=== PATIENT | female | born 1945 | race Caucasian/White ===

== ENCOUNTER 2020-07-26 12:18 | Emergency (ER) | payer MEDICARE, OTHER, SELFPAY ==
[2020-07-26] VITALS (7 sets, daily range): BP systolic 97–129; BP diastolic 30–85; PULSE 88–102; RESP 16–24; TEMP 36.9; O2SAT 95–100
--- NOTE | ~2020-07-26 | XR_ITS ---
EXAMINATION: XR chest 1V portable EXAM DATE: 07/26/2020 14:21 INDICATION: Shortness of breath for a day. TECHNIQUE: Portable AP frontal chest x-ray was obtained. Comparison is made to prior examination from 03/29/2018. FINDINGS: Approximately 1.5 cm right midlung zone nodular density, differential diagnosis including h ealing rib fracture, intraparenchymal nodule from cancer or acute infectious process. Clinical correl ation and follow-up chest x-ray is indicated. The lungs are otherwise clear. There are no pleural effusions. The cardiomediastinal silhouette is p rominent but magnified on this AP technique. There is no pneumothorax suspected. The bones and so ft tissues are unremarkable. IMPRESSION: Indeterminate right midlung zone nodular density, could be acute infectious process or ca ncer. Clinical correlation, follow-up chest x-ray. Reviewed, dictated and finalized at location A. ENT ACCOUNTS CLERK IMPRESSION: Indeterminate right midlung zone nodular density, could be acute in fectious process or cancer. Clinical correlation, follow-up chest x-ray.
--- NOTE | 2020-07-26 12:37 | ECG_ITS ---
Measurements Intervals [place] Rate: 102 P: 31 [place]: 143 QRS: -67 QRSD: 98 T: 42 QT: 334 QTc: 436 Interpretive Statements SINUS TACHYCARDIA LEFT ANTERIOR FASCICULAR BLOCK CANNOT RULE OUT SEPTAL INFARCT, AGE INDETERMINATE BASELINE WANDER- I, II, AVR, AVL, V2 ABNORMAL ECG Electronically Signed On 07-26-2020 14:59:18 RETAIL SALES ASSOCIATE by German Mauricio D.O.
[2020-07-26 12:58] LABS: Basophils Percent Auto 0.2 % (0.2-1.2); Eosinophils Percent Auto 0.9 % (0-4.4); Hematocrit 45.6 % (37.0-47.0); Hemoglobin 14.4 g/dL (12.0-15.0); Immature Granulocyte Absolute 0.01 K/mm3 (0.00-0.031); Immature Granulocyte Percent A 0.2 % (0-0.5); Lymphocytes Percent Auto 25.5 % (18.3-44.2); Mean Corpuscular HGB Conc 31.6 g/dl (32-36); Mean Corpuscular Hemoglobin 28.3 pg (26-34); Mean Corpuscular Volume 89.6 fl (80-100); Monocytes Absolute Auto 0.3 K/mm3 (0.1-0.6); Neutrophils Absolute Auto 3.2 K/mm3 (1.3-6.7); Neutrophils Percent Auto 67.2 % (45.5-73.1); Platelet Count Result 221 k/mm3 (150-375); Red Blood Count 5.09 M/mm3 (4.2-5.4); Red Cell Distribution Width 15.7 % (11.5-14.5); White Blood Count 4.7 K/mm3 (4.5-10.0)
[2020-07-26 13:07] LABS: Anion Gap 8 mmol/L (8-16); Blood Urea Nitrogen 18 mg/dL (7-17); Calcium 9.4 mg/dL (8.4-10.2); Carbon Dioxide 23 mmol/L (22-30); Chloride 107 mmol/L (98-107); Estimated CRCL calculation 40 ml/min; Estimated Glomerular Filt Rate 44; Glucose 129 mg/dL (65-105); Potassium 4.3 mmol/L (3.4-5.0); Sodium 138 mmol/L (137-145)
--- NOTE | 2020-07-26 14:27 | ED.SOB ---
HPI - SOB/Dyspnea General Chief Complaint: Shortness of Breath/Dyspnea Stated Complaint: diff breathing Time Seen by Provider: 07/26/20 13:59 Source: patient Mode of arrival: wheelchair Limitations: no limitations History of Present Illness HPI Narrative: This is a 75 year old female that presents to the ER for cold symptoms x 2 days. Reports cough, congestion, sore throat. Also reports nausea and diarrhea. Reports fever initially which has resolved. Reports fatigue and shortness of breath with exertion. Denies chest pain or lower extremity edema. Related Data Home Medications Medication Instructions Recorded Confirmed misoprostol 100 mcg tablet 100 mcg PO QID 08/27/19 pantoprazole 20 mg tablet,delayed 20 mg PO QAM 08/27/19 release sucralfate 100 mg/mL oral 2 gm RECTAL BID 08/27/19 suspension vitamin B complex 1 tablet PO DAILY 08/27/19 Allergies Allergy/AdvReac Type Severity Reaction Status Date / Time codeine Allergy Unknown Passout Verified 07/26/20 14:11 Penicillins Allergy Unknown Itching Verified 08/27/19 16:33 Review of Systems Review of Systems: Narrative: CONSTITUTIONAL: Reports fever ENT: Reports rhinorrhea, congestion, sore throat CARDIOVASCULAR: Denies chest pain, or edema. RESPIRATORY: Reports cough and dyspnea. GASTROINTESTINAL:Reports nausea, diarrhea. Denies abdominal pain All systems reviewed & are unremarkable except as noted in HPI and below PMFSH Past Medical History Medical History (Updated 07/26/20 @ 19:05 by Radha Jung PA-C) Stomach ulcer Surgical History Surgical History (Updated 08/27/19 @ 16:33 by Glory Page CMA) History of back surgery History of gastric bypass History of left hip replacement Total knee replacement status Bilateral Family History Family History (Updated 05/01/19 @ 11:07 by DOCTOR UNKNOWN) Father Acute myocardial infarction Mother Hypertension Other Family history of allergic disorder Family history of cardiovascular disease Social History Social History (Updated 08/27/19 @ 16:33 by Glory Page CMA) Smoking status: Never smoker Alcohol intake: current Substance use: never Exam Narrative: Exam Narrative: GENERAL: Elderly, well-nourished, and in no acute distress. HEAD: Normocephalic, atraumatic. EYES: PERRLA and EOMI. ENT: Nares clear, no rhinorrhea or epistaxis. Mucous membranes moist. Oropharynx without tonsillar hypertrophy exudate or other lesions. Bilateral TMs pearly acosta non-bulging NECK: Supple. No adenopathy or masses. CHEST: Clear to auscultation. No respiratory distress. No wheezes rales or rhonchi HEART: Regular rate and rhythm. No murmur heard. Normal peripheral pulses. ABDOMEN: Soft, nontender, nondistended, normal active bowel sounds. EXTREMITIES: Normal range of motion. No edema. SKIN: Warm, dry, no rash. NEURO: No focal deficits. Alert and oriented x3. PSYCH: Normal mood and affect Course Vital Signs Vital signs: Vital Signs Temperature 98.5 F 07/26/20 12:42 Pulse Rate 102 H 07/26/20 12:42 Respiratory Rate 20 07/26/20 12:42 Blood Pressure 98/30 L 07/26/20 12:42 Pulse Oximetry 98 07/26/20 12:42 Temperature 98.5 F 07/26/20 12:42 Pulse Rate 97 07/26/20 18:54 Respiratory Rate 24 H 07/26/20 18:54 Blood Pressure 129/71 07/26/20 18:54 Pulse Oximetry 99 07/26/20 18:54 MDM - SOB/Dyspnea MDM Narrative Medical decision making narrative: Patient presents the emergency department for cold symptoms x2 days. She is afebrile and nontoxic-appearing. Blood pressure was soft on arrival, in the 90s/60s. This responded to IV fluids. Most recent blood pressure 129/71. Patient's oxygen saturation has remained normal on room air. CBC is without concerning findings. Metabolic panel with possible mild dehydration. I do not have any recent labs to compare this to. Lactic acid initially elevated, which normalized with IV fluid administration. BNP is not
[2020-07-26] MEDS: SODIUM CHLORIDE 0.9% IV 1,000 ML 999 ML IV CONT (14:48)
[2020-07-26 15:05] LABS: Lactic Acid Reflex 2.3 mmol/L (0.7-2.1)
[2020-07-26 15:07] LABS: Alanine Aminotransferase 22 U/L (4-35); Albumin Level 3.4 g/dL (3.5-5.1); Alkaline Phosphatase 101 U/L (38-126); Aspartate Amino Transferase 45 U/L (14-36); Bilirubin,Total 0.5 mg/dL (0.2-1.3); CRP 1.1 mg/dL (<1.0); Lactate Dehydrogenase 482 U/L (313-618); Lipase 38 U/L (23-300)
[2020-07-26 15:13] LABS: NT Pro B Type Natriuretic Pept 232 PG/ML (5-100)
[2020-07-26 17:42] LABS: Lactic Acid Reflex 1.7 mmol/L (0.7-2.1)
[2020-07-26 17:49] LABS: Reflex Lactic Acid Yes or No Add Lactic
[2020-07-27 19:47] LABS: SARS-CoV-2 RNA PCR Positive
== END 2020-07-26 19:30 | disposition home or self-care (01) ==
PROVIDERS: Physician Assistant; Emergency Provider Emergency Medicine; PCP Nurse Practitioner Adult Health
DX: U07.1 COVID-19 (principal); Z98.84 Bariatric surgery status; Z96.642 Presence of left artificial hip joint; Z96.653 Presence of artificial knee joint, bilateral; R91.1 Solitary pulmonary nodule; R00.0 Tachycardia, unspecified; I44.4 Left anterior fascicular block; R94.31 Abnormal electrocardiogram [ECG] [EKG]
CPT/HCPCS: 36415; 71045; 80048; 80076; 82728; 83605; 83615; 83690; 83880; 85025; 86140; 87635; 87804; 93005; 96360; 99284; C9803; J7030; U0003

== ENCOUNTER 2020-08-02 13:06 | Outpatient (CLI) | payer MEDICARE, OTHER, SELFPAY ==
--- NOTE | ~2020-08-02 | XR_ITS ---
XR chest 2V 08/02/2020 13:32 Indication: Cough Procedure: 2 view chest Comparison: Comparison to multiple prior studies sequentially, with oldest reviewed study dated 07/12 Findings: There are developing patchy bilateral infiltrates, suspicious for pneumonia. No pleural eff usion, edema or pneumothorax. No acute osseous abnormality. There is thoracic spondylosis with accent uated kyphosis. Impression: 1: Developing patchy bilateral infiltrates, consistent with pneumonia. Reviewed, dictated and finalized at location A. ROUND LOGGER Impression: 1: Developing patchy bilateral infiltrates, consistent with pneumonia.
== END 2020-08-02 13:07 | disposition home or self-care (01) ==
PROVIDERS: PCP Nurse Practitioner Adult Health; Visit Provider Nurse Practitioner Adult Health
DX: U07.1 COVID-19 (principal); R05 Cough; R91.8 Other nonspecific abnormal finding of lung field
CPT/HCPCS: 71046

== ENCOUNTER 2020-08-16 14:43 | Outpatient (CLI) | payer MEDICARE, OTHER, SELFPAY ==
--- NOTE | ~2020-08-16 | XR_ITS ---
XR chest 2V DATE: 08/16/2020 14:59 INDICATION: Shortness of breath, chest pain. Covid 19 positive. TECHNIQUE: 2 views COMPARISON: 08/02/2020 2 view chest FINDINGS: There is cardiomegaly. There is aortic calcification and tortuosity. No hilar or mediastina l enlargement. No pulmonary infiltrate or consolidation, pleural effusion or pulmonary vascular congestion or pneumo thorax. Diffuse osteopenia. IMPRESSION: Cardiomegaly Aortic calcification and tortuosity No active pulmonary disease Diffuse osteopenia Reviewed, dictated and finalized at location A. ANCE ARTIFICER
== END 2020-08-16 14:44 | disposition home or self-care (01) ==
LOC: ANHIMG 14:48
PROVIDERS: PCP Nurse Practitioner Adult Health; Visit Provider Nurse Practitioner Adult Health
DX: U07.1 COVID-19 (principal); I51.7 Cardiomegaly; I70.0 Atherosclerosis of aorta; M85.89 Other specified disorders of bone density and structure, multiple sites
CPT/HCPCS: 71046

== ENCOUNTER 2020-08-31 12:44 | Outpatient (CLI) | payer MEDICARE, OTHER, SELFPAY ==
--- NOTE | 2020-08-31 | ECHO_ITS ---
Patient Info Name: Shania De La Cruz Age: 75 years : 1945 Gender: Female Ht: 62 in Wt: 190 lbs BSA: 1.98 m2 HR: 67 bpm BP: 121 / 90 mmHg Heart Rhythm: Sinus Rhythm Technical Quality: Excellent Exam Date: 08/31/2020 1:12 PM Exam Location: [facility] Pulmonary Patient Status: Outpatient Admit Date: 08/31/2020 Staff Ordering Physician: Jatinder, Luz SHERIDAN Audience Coordinator: Nettie Ortiz RDCS Attending Provider: bOedLuz NP Exam Type: CA echo doppler color flow Study Info Indications I51.7 - Cardiomegaly Complete two-dimensional, color flow and Doppler transthoracic echocardiogram is performed. Summary 1. Left ventricular systolic function is normal, estimated at 65-70%. 2. The left ventricular diastolic function is grade I diastolic dysfunction. 3. Thin and hypermobile interatrial septum. 4. There is no aortic valve stenosis. 5. There is mild tricuspid valve regurgitation. Left Ventricle Left ventricular chamber dimension is normal. Left ventricular systolic function is normal, estimated at 65-70%. There is no increased left ventricular wall thickness. The left ventricular diastolic function is grade I diastolic dysfunction. Global longitudinal strain is normal at -18 %. Right Ventricle Right ventricular chamber dimension is normal. Right ventricular systolic function is normal. Left Atria Left atrial chamber dimension is normal. Right Atria Right atrial chamber dimension is normal. Atrial Septum Thin and hypermobile interatrial septum. Aortic Valve The aortic valve is trileaflet. There is no aortic valve stenosis. There is trace aortic valve regurgitation. Pulmonic Valve The pulmonic valve is normal. There is trace pulmonic regurgitation. Mitral Valve The mitral valve has thickened leaflets. There is trace mitral valve regurgitation. Mild mitral annular calcification. Tricuspid Valve The tricuspid valve leaflets are normal. There is mild tricuspid valve regurgitation. No pulmonary hypertension, estimated pulmonary arterial systolic pressure is 23 mmHg. Pericardium/Pleural The pericardium appears normal. There is small pericardial effusion. Inferior Vena Cava Normal inferior vena cava with >50% collapse upon inspiration consistent with normal right atrial pressure, 5 mmHg. Aorta The aortic root size at the sinus of Valsalva is normal. Left Ventricular Outflow Tract Name Value Normal LVOT 2D LVOT Diameter 2.0 cm LVOT Doppler LVOT Peak Gradient 4 mmHg LVOT Mean Gradient 2 mmHg LVOT VTI 19 cm LVOT VTI/AV VTI Ratio 1.0 LVOT Stroke Volume 61 ml LVOT CO 4.0 l/min LVOT CI 2.0 l/min/m2 Pulmonic Valve Name Value Normal RVOT Doppler
== END 2020-08-31 12:45 | disposition home or self-care (01) ==
PROVIDERS: PCP Nurse Practitioner Adult Health; Visit Provider Nurse Practitioner Adult Health
DX: I51.7 Cardiomegaly (principal)
CPT/HCPCS: 93306

== ENCOUNTER → 2020-11-23 00:29 | Outpatient (CLI) | payer MEDICARE, OTHER, SELFPAY ==
[2020-11-23 18:32] LABS: SARS-CoV-2 RNA PCR Negative
== END ==
PROVIDERS: PCP Nurse Practitioner Adult Health; Visit Provider Podiatrist Foot & Ankle Surgery
DX: Z01.812 Encounter for preprocedural laboratory examination (principal); Z20.822 Contact with and (suspected) exposure to COVID-19
CPT/HCPCS: C9803; U0003; U0005

== ENCOUNTER 2020-11-26 01:29 | Day surgery (SDC) | payer MEDICARE, OTHER, SELFPAY ==
[2020-11-18 13:52] VITALS: BMI 34.7
--- NOTE | 2020-11-25 09:53 | WPDANESEPPF ---
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 Patient Data Age: 75 Gender: F Height: 1.57 m Weight: 86 kg Allergies Allergy/AdvReac Type Severity Reaction Status Date / Time codeine Allergy Unknown Passout Verified 11/26/20 07:30 Penicillins Allergy Unknown Itching Verified 11/26/20 07:30 Home Medications Medication Instructions Recorded Confirmed Type misoprostol 100 mcg tablet 100 mcg PO QAM 08/27/19 11/26/20 History pantoprazole 20 mg tablet,delayed 20 mg PO QAM 08/27/19 11/26/20 History release ergocalciferol (vitamin D2) 50,000 unit PO WEEKLY 11/18/20 11/26/20 History lisinopril 20 mg PO QAM 11/18/20 11/26/20 History vitamin I92-[id number] B1 1 ml IM MONTHLY 11/18/20 11/26/20 History Patient hx anesthesia problems: post op nausea/vomiting Family hx anesthesia problems: none PMFSH Past Medical History Medical History (Updated 11/25/20 @ 09:53 by Adam Peck DO) Anxiety Hypertension PONV (postoperative nausea and vomiting) Stomach ulcer Surgical History Surgical History (Updated 11/25/20 @ 09:53 by Adam Peck DO) History of appendectomy History of back surgery History of cholecystectomy History of gastric bypass History of hysterectomy History of left hip replacement Total knee replacement status Bilateral Family History Family History (Updated 05/01/19 @ 11:07 by DOCTOR UNKNOWN) Father Acute myocardial infarction Mother Hypertension Other Family history of allergic disorder Family history of cardiovascular disease Social History Social History (Updated 08/27/19 @ 16:33 by Glory Page CMA) Smoking status: Never smoker Alcohol intake: current Drinks per week: 2 Substance use: never Living arrangements: with family Additional living arrangements comments: Spiritual care concerns: No Anes - Eval Final PreProcedure Day of Procedure 11/25/20 09:53 Patient weight: obese Heart: regular rate and rhythm Lungs: clear to auscultation and normal air movement Airway: Mallampati scale class II Neurological: alert and oriented Last oral intake: >/= 8 hours ASA classification: III Emergent: no Anesthetic plan: proceed Anesthesia type and monitoring: general LMA and standard monitoring Informed Consent: The patient's anesthetic plan and its attendant risks and benefits were discussed with the patient/family/POA. Questions were solicited and answers provided to the satisfaction of the patient/family/POA.
--- NOTE | 2020-11-25 09:54 | WPDANESPNB ---
Anes - Peripheral Nerve Block Date/Time: 11/25/20 09:54 I have discussed with the patient/family/POA the placement of a peripheral nerve block for post-operative pain management, including associated risks, benefits, complications, and side effects. Alternative methods of post-operative analgesia were detailed. Questions were solicited and answers provided to the satisfaction of the patient/family/POA. Time-Out: A pre-procedural Time-Out was completed immediately before starting the procedure and confirmed: Patient Identification, Site, Procedure, Patient Position and the Availability of Requisite Equipment. Clinical Indications: Acute post-operative pain management requested by the operative surgeon. Nerve Block Insertion Note Anes-nerve block: posterior fossa sciatic left and adductor canal left Patient position: supine (for adductor canal) and other (right lateral for popliteal) Skin prep: chlorhexidine Needle: 22 gauge, stimulating, insulated echogenic needle. Needle length: 80 mm Technique: nerve stimulation lost at (mA) (for popliteal lost at 0.2) and ultrasound Injectate: bupivacaine 0.5% with epi 5 mcg/ml (20 mL for popliteal, 10 mL for adductor canal (no epi)) Observations: tolerated well Complications: none
[2020-11-26] VITALS (9 sets, daily range): BP systolic 132–150; BP diastolic 57–87; PULSE 78–86; RESP 16–20; TEMP 36.4–37; O2SAT 96–100
--- NOTE | ~2020-11-26 | XR_ITS ---
EXAMINATION: XR surgery orthopedic EXAM DATE: 11/26/2020 10:07 INDICATION: Left foot surgery. TECHNIQUE: Fluoroscopy used during XR surgery orthopedic performed by Dr. Cody Canales JR MD. Radiologist was not present for the imaging or procedure. The DAP for this procedure was 0.31 cGycm2 . FINDINGS: Frontal and lateral images of the left great toe demonstrates arthrodesis of the metatarso phalangeal joint joint. Correlate with procedure note. IMPRESSION: Fluoroscopy used during left foot surgery. Reviewed, dictated and finalized at location A.
--- NOTE | 2020-11-26 07:23 | WPDHPUPDATE1 ---
History and Physical Update Update Date/Time: 11/26/20 07:23 History and Physical has been reviewed, including an updated exam of the patient. There are NO changes in the patient's condition. Risks, benefits, and alternatives have been discussed and questions answered. Patient agrees to proceed with procedure.
[2020-11-26] MEDS: LACTATED RINGERS 1,000 ML 30 ML IV CONT (07:55)
[2020-11-26] MEDS: FAMOTIDINE 20 MG/2 ML VIAL IV PUSH (08:15)
[2020-11-26] MEDS: CLINDAMYCIN 900 MG/D5W 50 ML 900 MG/50 ML PIGGYBACK 50 MG IVPB (09:11)
--- NOTE | 2020-11-26 10:26 | PM.PROC ---
Procedure Note - Detailed Date of procedure: 11/26/20 Pre-op diagnosis: Arthritic Bunion Left Foot Post-op diagnosis: same Procedure performed: Athrodesis of the first metatarsal phalangeal joint left foot Implants: [employer] Cross check plate with four 2.7mm locking screws and one 3.5 mm lag screw Anesthesia: GLMA and local Surgeon: Cody Canales JR, DPM Estimated blood loss (mL): 1 Drains: No Packing: No Pathology: none sent Complications: No immediate complications Condition: stable Disposition: same day Findings: PROCEDURE IN DETAIL: Under mild sedation, the patient was brought into the operating room, placed on the operating table in supine position. A pneumatic ankle tourniquet was placed about the patient's ankle. Following general LMA, a local anesthetic block was obtained about the foot and ankle utilizing 20 cc of Exparel. The foot was then scrubbed, prepped, and draped in the usual aseptic manner. An Esmarch bandage was then used to exsanguinate the patient's foot and the pneumatic ankle tourniquet was then inflated. Surgery began in the following manner: Attention was directed to the dorsal aspect of the 1st metatarsophalangeal joint where there was a large osteophyte noted along the dorsomedial aspect of the joint, she had a recurrent bunion deformity noted. The incision was made starting along the central shaft of the 1st metatarsal and extending just proximal to the interphalangeal joint of the left hallux. The incision was continued deep down through the subcutaneous tissues using sharp and blunt dissection. All bleeders were cauterized as necessary. At this point, the dissection was continued down to the level of the periosteum and capsular structures overlying the 1st metatarsophalangeal joint. A full length periosteum and capsular incision was made just medial to the extensor hallucis longus tendon. The periosteum and capsular structures were freed from the base of the proximal phalanx as well as the distal 1st metatarsal. At this point, the 1st metatarsophalangeal joint was identified. There was near complete loss of articular cartilage to the head of the 1st metatarsal as well as the base of the proximal phalanx. There was significant broadening and hypertrophy of the 1st metatarsophalangeal joint. Utilizing a sagittal bone saw, the hypertrophied 1st metatarsal was resected dorsally, medially, and laterally. A power bur was used to make sure that there were no rough edges and also to further debride the hypertrophic 1st metatarsal. Next, a rongeur was used to resect all hypertrophic base of the proximal phalanx. At this point, the reamer system for the CraftistasCHECK system was used to denude the degenerative cartilage from the head of the 1st metatarsal as well as the base of the proximal phalanx. The cartilage and subchondral bone were fully debrided utilizing the reamer system until healthy bleeding bone was noted. Next, a 2-0 drill bit was used to further fenestrate the head of the 1st metatarsal as well as the base of the proximal phalanx in order to allow fusion across the 1st metatarsophalangeal joint. Next, a 0.045 inch K-wire was driven from the medial aspect of the base of the proximal phalanx into the head of the 1st metatarsal in order to serve as temporary fixation. A large steel plate was used to make sure that the hallux was in a rectus position both in the sagittal plane as well as the frontal and transverse plane. Excellent position of the hallux was noted. Next, a CrossCHECK plate was placed atop the 1st metatarsophalangeal joint held in position with Flora wires. Utilizing standard principles and techniques, the 2 distal drill holes were drilled and two 2.7 mm fully-threaded locking screws were driven from dorsal to plantar holding the distal aspect of the plate intact. At this point, a lag screw was driven from dorsal distal to proximal plantar across the 1st metatarsophalange
== END 2020-11-26 12:25 | disposition home or self-care (01) ==
PROVIDERS: PCP Nurse Practitioner Adult Health; Visit Provider Podiatrist Foot & Ankle Surgery
PROC: (CPT 28750; principal; 2020-11-26 09:00)
DX: M21.612 Bunion of left foot (principal); F41.9 Anxiety disorder, unspecified; I10 Essential (primary) hypertension; E66.9 Obesity, unspecified; Z68.37 Body mass index [BMI] 37.0-37.9, adult
CPT/HCPCS: 28750; C1713; C9290; J1100; J1200; J2405; J2704; J3010; J7120

== ENCOUNTER → 2021-07-14 12:40 | Outpatient (CLI) | payer MEDICARE, OTHER, SELFPAY ==
--- NOTE | ~2021-07-14 | MM_ITS ---
EXAMINATION: MM screening saundra BI w cintia HISTORY: Screening TECHNIQUE: Craniocaudal and mediolateral oblique 3-D tomosynthesis images were obtained and synthetic 2-D images were generated. CAD analysis was submitted and interpreted. COMPARISON: 01/08/2012 BREAST PARENCHYMAL COMPOSITION: There are scattered areas of fibroglandular density. FINDINGS: There is no evidence of suspicious mass, calcification, or architectural distortion to sugg est malignancy in either breast. There has been no suspicious interval change. IMPRESSION: 1. No mammographic evidence of malignancy. 2. Recommend routine screening mammography in one year. BI-RADS Category 1: Negative Reviewed, dictated and finalized at location A.
== END ==
PROVIDERS: PCP Nurse Practitioner Adult Health; Visit Provider Nurse Practitioner Adult Health
DX: Z12.31 Encounter for screening mammogram for malignant neoplasm of breast (principal)
CPT/HCPCS: 77063; 77067

== ENCOUNTER 2021-10-07 07:55 | Outpatient (CLI) | payer MEDICARE, OTHER, SELFPAY ==
--- NOTE | 2021-10-07 09:01 | ECG_ITS ---
Measurements Intervals [place] Rate: 67 P: 40 NE: 157 QRS: -55 QRSD: 114 T: 18 QT: 377 QTc: 400 Interpretive Statements SINUS RHYTHM LEFT ATRIAL ENLARGEMENT LEFT ANTERIOR FASCICULAR BLOCK BASELINE ARTIFACT- I, II, III, AVR, AVL, AVF ABNORMAL ECG Electronically Signed On 10-07-2021 9:32:32 COMMUNICATIONS MAINTAINER by German Mauricio D.O.
[2021-10-07 09:35] LABS: Basophils Percent Auto 0.5 % (0.2-1.2); Eosinophils Absolute Auto 0.1 K/mm3 (0-0.3); Eosinophils Percent Auto 1.3 % (0-4.4); Hematocrit 40.1 % (37.0-47.0); Hemoglobin 12.5 g/dL (12.0-15.0); Immature Granulocyte Absolute 0.02 K/mm3 (0.00-0.031); Immature Granulocyte Percent A 0.3 % (0-0.5); Lymphocytes Absolute Auto 1.29 K/mm3 (0.9-3.2); Lymphocytes Percent Auto 21.5 % (18.3-44.2); Mean Corpuscular HGB Conc 31.2 g/dl (32-36); Mean Corpuscular Hemoglobin 27.9 pg (26-34); Mean Corpuscular Volume 89.5 fl (80-100); Mean Platelet Volume 9.5 fl (7.4-10.4); Monocytes Absolute Auto 0.4 K/mm3 (0.1-0.6); Monocytes Percent Auto 7.2 % (2.6-8.5); Neutrophils Absolute Auto 4.2 K/mm3 (1.3-6.7); Neutrophils Percent Auto 69.2 % (45.5-73.1); Platelet Count Result 261 k/mm3 (150-375); Red Blood Count 4.48 M/mm3 (4.2-5.4); Red Cell Distribution Width 15.9 % (11.5-14.5)
[2021-10-07 09:43] LABS: Urine Cotinine NEGATIVE
[2021-10-07 09:50] LABS: Albumin Level 4.2 g/dL (3.5-5.1); Estimated Glomerular Filt Rate 44; Glucose 104 mg/dL (65-110)
[2021-10-07 10:35] LABS: Hemoglobin A1C 5.8 % (<5.7)
== END 2021-10-07 07:56 | disposition home or self-care (01) ==
LOC: ANHSURGERY 08:00
PROVIDERS: PCP Nurse Practitioner Adult Health; Visit Provider Orthopaedic Surgery
DX: Z01.818 Encounter for other preprocedural examination (principal); M16.11 Unilateral primary osteoarthritis, right hip; R94.31 Abnormal electrocardiogram [ECG] [EKG]
CPT/HCPCS: 80307; 82040; 82565; 82947; 83036; 85025; 86850; 86900; 86901; 87081; 93005

== ENCOUNTER 2022-02-10 09:31 | Outpatient (CLI) | payer MEDICARE, OTHER, SELFPAY ==
--- NOTE | ~2022-02-10 | DEXA_ITS ---
Bone Density Report Name: ZINA CHO Age: 76 Sex: Female Ethnicity: White Date of : 1945 Indication: postmenopausal; screening for osteoporosis; height loss; hysterectomy; Referring Provider: RALPH, ALMA Study: Bone densitometry was performed. Exam Date: February 10, 2022 Accession number: [id number] Bone Density: Region BMD T-score Z-score Classification AP Spine(L1-L4) 0.944 -0.9 1.4 Normal World Health Organization criteria for BMD impression classify patients as: Normal (T-score at or above -1.0), Osteopenia (T-score between -1.0 and -2.5), or Osteoporosis (T-score at or below -2.5). Clinical Information Provided by Patient: Is being treated for osteoporosis Has used the following medications: Vitamin D, Calcium Has the following medical conditions: Hysterectomy Patient maximum height was 64 Menopause Age: 52 No regular weight bearing exercise Drinks caffeinated beverages Onset of menses at age 14 Number of children 3 Impression: The patient has normal bone mass. Discussion: It is important to ask patients whether they are taking their medications and to encourage continued and appropriate compliance with their osteoporosis therapies to reduce fracture risk. It is also important to review their risk factors and encourage appropriate calcium and vitamin D intakes, exercise, fall prevention and other lifestyle measures. Follow-Up: Consider a repeat BMD and Vertebral Fracture Assessment (VFA) exam in 2 years or sooner if medically necessary, to reassess this patient's status. Reported by: AMANDA on 02/10/2022 10:13:00 AM. Reviewed, dictated and finalized at location Sultana CHING
== END 2022-02-10 09:32 | disposition home or self-care (01) ==
PROVIDERS: PCP Nurse Practitioner Adult Health; Visit Provider Nurse Practitioner
DX: Z78.0 Asymptomatic menopausal state (principal); M81.0 Age-related osteoporosis without current pathological fracture
CPT/HCPCS: 77080

== ENCOUNTER 2023-02-06 14:41 | Emergency (ER) | payer MEDICARE, OTHER, SELFPAY ==
[2023-02-06] VITALS (17 sets, daily range): BP systolic 145–179; BP diastolic 87–96; PULSE 71–84; RESP 12–26; TEMP 36.7; O2SAT 94–100
--- NOTE | ~2023-02-06 | XR_ITS ---
EXAMINATION: XR chest 2V DATE: 02/06/2023 15:53 INDICATION: Weakness and fatigue TECHNIQUE: PA and lateral views of the chest were obtained. COMPARISON: Chest radiograph dated 08/16/2020 FINDINGS: The lungs remain clear with no focal airspace opacities, pulmonary edema, pleural effusion or pneumot horax. Mild cardiomegaly and tortuous thoracic aorta. Thoracic kyphosis with mild spondylosis. IMPRESSION: 1. No acute cardiopulmonary disease. 2. Cardiomegaly. Reviewed, dictated and finalized at location A.
--- NOTE | 2023-02-06 14:42 | ECG_ITS ---
Measurements Intervals [place] Rate: 84 P: 24 MS: 120 QRS: -69 QRSD: 108 T: 52 QT: 346 QTc: 409 Interpretive Statements SINUS RHYTHM LEFT ANTERIOR FASCICULAR BLOCK VOLTAGE CRITERIA FOR LVH CANNOT RULE OUT SEPTAL INFARCT, AGE INDETERMINATE ABNORMAL ECG COMPARED TO ECG 10/07/2021 09:24:10 MYOCARDIAL INFARCT FINDING NOW PRESENT Electronically Signed On 02-06-2023 15:42:05 CDT by German Mauricio D.O.
[2023-02-06 16:23] LABS: Basophils Percent Auto 0.4 % (0.2-1.2); Eosinophils Absolute Auto 0.1 K/mm3 (0-0.3); Eosinophils Percent Auto 0.8 % (0-4.4); Hematocrit 36.2 % (37.0-47.0); Hemoglobin 10.9 g/dL (12.0-15.0); Immature Granulocyte Absolute 0.03 K/mm3 (0.00-0.031); Immature Granulocyte Percent A 0.4 % (0-0.5); Lymphocytes Absolute Auto 1.69 K/mm3 (0.9-3.2); Lymphocytes Percent Auto 21.8 % (18.3-44.2); Mean Corpuscular HGB Conc 30.1 g/dl (32-36); Mean Corpuscular Hemoglobin 25.5 pg (26-34); Mean Corpuscular Volume 84.8 fl (80-100); Mean Platelet Volume 8.9 fl (7.4-10.4); Monocytes Absolute Auto 0.7 K/mm3 (0.1-0.6); Monocytes Percent Auto 8.5 % (2.6-8.5); Neutrophils Absolute Auto 5.3 K/mm3 (1.3-6.7); Neutrophils Percent Auto 68.1 % (45.5-73.1); Platelet Count Result 348 k/mm3 (150-375); Red Blood Count 4.27 M/mm3 (4.2-5.4); Red Cell Distribution Width 18.1 % (11.5-14.5); White Blood Count 7.7 K/mm3 (4.5-10.0)
[2023-02-06 16:27] LABS: Alanine Aminotransferase 18 U/L (6-35); Albumin Level 4.3 g/dL (3.5-5.1); Alkaline Phosphatase 134 U/L (38-126); Anion Gap 7 mmol/L (8-16); Aspartate Amino Transferase 29 U/L (14-36); Bilirubin,Total 0.4 mg/dL (0.2-1.3); Blood Urea Nitrogen 22 mg/dL (7-17); Calcium 9.8 mg/dL (8.4-10.2); Carbon Dioxide 28 mmol/L (22-30); Chloride 105 mmol/L (98-107); Estimated CRCL calculation 36 ml/min; Estimated Glomerular Filt Rate 37; Glucose 74 mg/dL (65-110); Lipase 71 U/L (23-300); Potassium 4.2 mmol/L (3.4-5.0); Sodium 140 mmol/L (137-145)
[2023-02-06 19:16] LABS: Appearance Urine Clear (Clear); Bacteria Urine 1+ /hpf; Bilirubin Urine Negative (Negative); Blood Urine Negative (Negative); Calcium Oxalate Crystals Urine Present /hpf; Color Urine Yellow (Yellow); Glucose Urine UA 3+ mg/dL (Negative); Ketones Urine Negative (Negative); Leukocyte Esterase Ur Negative LEU/UL (Negative); Need Manual Microscopic Reviewed; Nitrate Urine Negative (Negative); Protein Urine Trace mg/dL (Negative); Specific Grav Ur 1.023 (1.001-1.035); Squamous Epithelial Cell Urine Occasional /hpf (Few); WBC Urine 0-5 /hpf
[2023-02-06 19:18] LABS: Add Urine Microscopic? YES
[2023-02-06] MEDS: SODIUM CHLORIDE 0.9% IV 1,000 ML 999 ML IV CONT (20:12)
--- NOTE | 2023-02-06 21:50 | ED.GENADULT ---
HPI - General Adult General Chief complaint: Weakness Stated complaint: DIZZY, WEAKNESS Time Seen by Provider: 02/06/23 19:03 History of Present Illness HPI narrative: Patient is a 77-year-old female who presents ER with generalized fatigue and weakness. Began today. Associated with emesis and diarrhea x4. No blood in stool or emesis. Denies fevers or chills or sweats. No known sick contacts. Reports this is happened to her a couple times over the last month. She is not on any antibiotics. No additional concerns. Denies urinary symptoms. Related Data Home Medications Medication Instructions Recorded Confirmed misoprostol 100 mcg tablet 200 mcg PO QAM 08/27/19 10/07/21 pantoprazole 20 mg tablet,delayed 40 mg PO QAM 08/27/19 10/07/21 release ergocalciferol (vitamin D2) 1,250 50,000 unit PO WEEKLY 11/18/20 10/07/21 mcg (50,000 unit) capsule lisinopril 20 mg tablet 20 mg PO QAM 11/18/20 10/07/21 vitamin [id number] 100 mg-1 1 ml IM MONTHLY 11/18/20 10/07/21 mg/mL intramuscular solution acetaminophen 500 mg capsule 1,000 mg PO Q6H PRN Pain 10/07/21 10/07/21 multivitamin with minerals 1 tablet PO DAILY 10/07/21 10/07/21 (Hair,Skin and Nails tablet) Allergies Allergy/AdvReac Type Severity Reaction Status Date / Time codeine Allergy Unknown Passout Verified 02/06/23 18:57 Penicillins Allergy Unknown Itching Verified 02/06/23 18:57 NSAIDS (Non-Steroidal AdvReac HX GASTRIC Verified 02/06/23 18:57 Anti-Inflamma BYPASS Review of Systems Review of Systems: All systems reviewed & are unremarkable except as noted in HPI and below Constitutional: Constitutional: Denies chills, Reports fatigue, Denies fever(s) and Reports weakness ENT: Denies nasal congestion and Denies sore throat Comments: Lightheadedness Cardiovascular: Cardiovascular: Denies chest pain and Denies rapid heart rate Gastrointestinal: Gastrointestinal: Reports abdominal pain (Cramping), Reports diarrhea, Reports nausea and Reports vomiting Genitourinary: Genitourinary: Denies nocturia and Denies dysuria [facility] Past Medical History Medical History Anxiety Hypertension PONV (postoperative nausea and vomiting) Stomach ulcer Surgical History Surgical History History of appendectomy History of back surgery History of cholecystectomy History of gastric bypass History of hysterectomy History of left hip replacement Total knee replacement status Bilateral Family History Family History Father Acute myocardial infarction Mother Hypertension Other Family history of allergic disorder Family history of cardiovascular disease Social History Social History Smoking status: Never smoker Additional smoking assessment comments: DENIES ANY FORM OF TOBACCO USE Alcohol intake: current Drinks per week: 4 Substance use: never Living arrangements: with family Additional living arrangements comments: Spiritual care concerns: No Exam Narrative: GENERAL: Well-appearing, well-nourished, and in no acute distress. HEAD: Normocephalic, atraumatic. EYES: PERRL and EOMI. ENT: Mucous membranes moist. CHEST: Clear to auscultation. No respiratory distress. HEART: Regular rate and rhythm. Normal peripheral pulses. ABDOMEN: Soft, nontender, nondistended. EXTREMITIES: Normal range of motion. No edema. SKIN: Warm, dry, no rash. NEURO: Alert and oriented x3. PSYCH: Normal mood and affect. Course Course Emergency Course: Patient resting comfortably. Feels better with IV fluid. No nausea vomiting diarrhea here. Discussed patient's anemia which she is currently on iron for. Vital Signs Vital signs: Vital Signs Temperature 98.1 F 02/06/23 16:00 Pulse Rate 84 02/06/23 16:00 Respiratory Rate
== END 2023-02-06 22:59 | disposition home or self-care (01) ==
PROVIDERS: Emergency Medicine; Emergency Provider Emergency Medicine; PCP Family Medicine
DX: R11.2 Nausea with vomiting, unspecified (principal); I10 Essential (primary) hypertension; Z98.84 Bariatric surgery status; Z96.653 Presence of artificial knee joint, bilateral; Z96.642 Presence of left artificial hip joint; Z90.49 Acquired absence of other specified parts of digestive tract; Z90.710 Acquired absence of both cervix and uterus; I51.7 Cardiomegaly; I44.4 Left anterior fascicular block; R94.31 Abnormal electrocardiogram [ECG] [EKG]
CPT/HCPCS: 36415; 71046; 80053; 81001; 83690; 85025; 93005; 96360; 96361; 99283; J7030

== ENCOUNTER 2023-11-05 15:36 | Outpatient (CLI) | payer MEDICARE, OTHER, SELFPAY ==
[2023-11-05 16:04] LABS: Hematocrit 33.9 % (37.0-47.0); Hemoglobin 9.8 g/dL (12.0-15.0); Mean Corpuscular HGB Conc 28.9 g/dl (32-36); Mean Corpuscular Hemoglobin 24.3 pg (26-34); Mean Corpuscular Volume 84.1 fl (80-100); Mean Platelet Volume 9.3 fl (7.4-10.4); Platelet Count Result 326 k/mm3 (150-375); Red Blood Count 4.03 M/mm3 (4.2-5.4); Red Cell Distribution Width 18.4 % (11.5-14.5)
[2023-11-05 16:08] LABS: Creatinine Urine 82.4 mg/dL; Total Protein Urine Random 11 mg/dL; Ur Ttl Prot Creatinine Ratio 0.13 mg/mg (0-0.20)
[2023-11-05 16:16] LABS: Albumin Level 3.9 g/dL (3.5-5.1); Anion Gap 5 mmol/L (8-16); Blood Urea Nitrogen 23 mg/dL (7-17); Carbon Dioxide 24 mmol/L (22-30); Chloride 110 mmol/L (98-107); Estimated Glomerular Filt Rate 48; Glucose 102 mg/dL (65-110); Phosphorus 3.6 mg/dL (2.5-4.5); Potassium 4.7 mmol/L (3.4-5.0); Sodium 139 mmol/L (137-145)
[2023-11-05 16:27] LABS: Parathyroid Intact 280.9 pg/mL (7.5-53.5)
== END 2023-11-05 15:37 | disposition home or self-care (01) ==
LOC: ANHLAB 15:41
PROVIDERS: PCP Family Medicine; Visit Provider Internal Medicine Nephrology
DX: N18.32 Chronic kidney disease, stage 3b (principal); H61.23 Impacted cerumen, bilateral
CPT/HCPCS: 36415; 80069; 82570; 83970; 84156; 85027

== ENCOUNTER 2024-05-26 10:39 | Outpatient (CLI) | payer MEDICARE, OTHER, SELFPAY ==
[2024-05-26 12:54] LABS: Hematocrit 36.9 % (37.0-47.0); Hemoglobin 10.9 g/dL (12.0-15.0); Mean Corpuscular HGB Conc 29.5 g/dl (32-36); Mean Corpuscular Hemoglobin 25.7 pg (26-34); Mean Platelet Volume 9.7 fl (7.4-10.4); Platelet Count Result 346 k/mm3 (150-375); Red Blood Count 4.24 M/mm3 (4.2-5.4); Red Cell Distribution Width 18.3 % (11.5-14.5); White Blood Count 6.9 K/mm3 (4.5-10.0)
[2024-05-26 13:09] LABS: Alanine Aminotransferase 12 U/L (6-35); Albumin Level 4.1 g/dL (3.5-5.1); Anion Gap 10 mmol/L (4-12); Blood Urea Nitrogen 21 mg/dL (7-17); Calcium 10.3 mg/dL (8.4-10.2); Carbon Dioxide 25 mmol/L (22-30); Chloride 106 mmol/L (98-107); Cholesterol 170 mg/dL (0-200); Estimated Glomerular Filt Rate 44; Glucose 88 mg/dL (65-110); HDL Direct 66 mg/dL; Phosphorus 3.4 mg/dL (2.5-4.5); Potassium 4.1 mmol/L (3.4-5.0); Sodium 141 mmol/L (137-145); Triglycerides 66 mg/dL (<150)
[2024-05-26 13:17] LABS: Creatinine Urine 82.8 mg/dL; Total Protein Urine Random 9 mg/dL; Ur Ttl Prot Creatinine Ratio 0.11 mg/mg (0-0.20)
[2024-05-26 13:19] LABS: Parathyroid Intact 113.6 pg/mL (14.5-75.2)
[2024-05-26 13:20] LABS: LDL Cholesterol Direct 80 mg/dL
[2024-05-26 13:21] LABS: Iron 37 ug/dL (37-170)
[2024-05-26 13:31] LABS: Percent Iron Saturation 8 % (20-50)
[2024-05-26 13:55] LABS: Vitamin D 25 Hydroxy 46.9 ng/mL
[2024-05-26 14:00] LABS: Ferritin 8.99 ng/mL (11.1-264)
[2024-05-26 14:14] LABS: Vitamin B12 > 1000.0 pg/mL (239-931)
[2024-05-26 18:28] LABS: Hemoglobin A1C 5.8 % (<5.7)
== END 2024-05-26 10:40 | disposition home or self-care (01) ==
PROVIDERS: PCP Nurse Practitioner Family; Visit Provider Internal Medicine Nephrology
DX: R73.03 Prediabetes (principal); D64.9 Anemia, unspecified; E53.8 Deficiency of other specified B group vitamins; E78.5 Hyperlipidemia, unspecified; H61.23 Impacted cerumen, bilateral; N18.31 Chronic kidney disease, stage 3a; I12.9 Hypertensive chronic kidney disease with stage 1 through stage 4 chronic kidney disease, or unspecified chronic kidney disease; N18.32 Chronic kidney disease, stage 3b
CPT/HCPCS: 36415; 80061; 80069; 82306; 82570; 82607; 82728; 83036; 83540; 83550; 83970; 84156; 84460; 85027

== ENCOUNTER 2024-06-21 13:04 | Emergency (ER) | payer MEDICARE, OTHER, SELFPAY ==
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
[2024-06-21 13:15] VITALS: BP 114/68; PULSE 93; RESP 20; TEMP 36.7; O2SAT 99
[2024-06-21] MEDS: ACETAMINOPHEN 500 MG TABLET 1000 MG PO (14:56)
[2024-06-21] MEDS: LIDOCAINE 5% PATCH 1 PATCH TRANSDERM (15:30)
[2024-06-21 15:37] VITALS: BP 150/81; PULSE 66; RESP 16; O2SAT 95
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
== END 2024-06-21 15:42 | disposition home or self-care (01) ==
PROVIDERS: Emergency Provider Emergency Medicine; PCP Nurse Practitioner Family
DX: S99.922A Unspecified injury of left foot, initial encounter (principal); I10 Essential (primary) hypertension; E53.8 Deficiency of other specified B group vitamins; K21.9 Gastro-esophageal reflux disease without esophagitis; M19.90 Unspecified osteoarthritis, unspecified site; Z98.84 Bariatric surgery status; Z96.653 Presence of artificial knee joint, bilateral; Z86.2 Personal history of diseases of the blood and blood-forming organs and certain disorders involving the immune mechanism; Z90.49 Acquired absence of other specified parts of digestive tract; Z90.710 Acquired absence of both cervix and uterus; M85.872 Other specified disorders of bone density and structure, left ankle and foot; W23.0XXA Caught, crushed, jammed, or pinched between moving objects, initial encounter
CPT/HCPCS: 73630; 99283; A9270

== ENCOUNTER 2024-07-17 15:33 | Emergency (ER) | payer MEDICARE, OTHER, SELFPAY ==
[2024-07-17] VITALS (27 sets, daily range): BP systolic 104–142; BP diastolic 41–91; PULSE 69–99; RESP 13–24; TEMP 36.6; O2SAT 94–100
--- NOTE | ~2024-07-17 | CT_ITS ---
CLINICAL INDICATION: Upper abdominal pain with frequent belching, nausea and vomiting COMPARISON: 04/28/2017. TECHNIQUE: Multiple contiguous axial images of the abdomen and pelvis were performed following the ad ministration of with 100 mL Omnipaque-350 intravenous contrast The dose-length product (DLP) was 959.67 mGy-cm. Automated exposure control and iterative reconstruction technique were employed. FINDINGS/OBSERVATIONS: Visualized lower thorax: The bilateral lung bases are clear. The heart is enlarged, without pericardial effusion. Small hiatal hernia is present. Liver: The liver enhances homogeneously, and is not enlarged. Gallbladder and biliary system: The gallbladder is surgically absent. Pancreas: Fatty atrophy of the pancreas is present. Spleen: The spleen enhances homogeneously and is not enlarged measuring 8 cm in longitudinal dimension. Kidneys: Multiple areas of decreased attenuation within the bilateral kidneys, unchanged from 2017 and most co nsistent with simple cysts The remainder of the bilateral kidneys otherwise enhance symmetrically without hydronephrosis or tha l calculi. Adrenal glands: Unremarkable. Gastrointestinal tract: Postoperative change within the upper abdomen, consistent with patient's history of gastric bypass. No dilated loops of small or large bowel. Appendix: The appendix is not definitively visualized. However, no pericecal inflammatory change is identified suggest the presence of acute appendicitis. Vasculature: Densely calcified atherosclerotic disease within the abdominal aorta. The inferior vena cava is slit like suggesting hypovolemia. Lymph nodes: No pathologically enlarged or morphologically suspicious lymph nodes within the retroperitoneum or at the root of the mesentery. Pelvic structures: Evaluation of the pelvis is limited secondary to streak artifact from the patient's bilateral hip pro stheses. Free fluid within the presacral space is present, an interval change from 2017. Body wall and musculoskeletal: Degenerative disease within the lower thoracic and lumbosacral spines, with osteophyte formation, dis c space narrowing, endplate changes and vacuum phenomena. Hemangioma within the vertebral body of T12. IMPRESSION: Free fluid within the presacral space, an interval change from 2017 examination. Secondary signs suggesting hypovolemia, as detailed above. Reviewed, dictated and finalized at location A. MAINTENANCE IMPRESSION: Free fluid within the presacral space, an interval change from 2017 examination . Secondary signs suggesting hypovolemia, as detailed above.
--- NOTE | ~2024-07-17 | XR_ITS ---
EXAMINATION: XR chest 2V 07/17/2024 16:17 INDICATION: Chest pain PROCEDURE: 2 view chest COMPARISON: Comparison to multiple prior studies sequentially, with oldest reviewed study dated 07/12. FINDINGS: The lungs are clear. There is right paratracheal soft tissue in the superior mediastinum wh ich may be vascular, although more prominent than on prior examinations. Further evaluation with cont rast-enhanced CT recommended. The cardiomediastinal silhouette is within normal limits. There are no pleural effusions. There is no pneumothorax suspected. IMPRESSION: 1: NO ACUTE CARDIOPULMONARY DISEASE. 2: Developing right paratracheal soft tissue. Correlation with contrast-enhanced CT chest recommende d. Reviewed, dictated and finalized at location B. ORGAN BUILDER IMPRESSION: 1: NO ACUTE CARDIOPULMONARY DISEASE. 2: Developing right paratracheal soft tissue. Correlation with contrast-enhanc ed CT chest recommended.
--- NOTE | 2024-07-17 15:45 | ECG_ITS ---
Test Date: 2024-07-17 15:50:54 Measurements Intervals [place] Rate: 92 P: 32 ND: 165 QRS: -71 QRSD: 105 T: 27 QT: 342 QTc: 423 Interpretive Statements SINUS RHYTHM LEFT ATRIAL ENLARGEMENT LEFT ANTERIOR FASCICULAR BLOCK CANNOT R/O SEPTAL INFARCT, AGE INDETERMINATE BASELINE WANDER- I, III ABNORMAL ECG No previous ECG available for comparison Electronically Signed On 07-17-2024 15:52:52 SCRIPT WORKER by German Mauricio D.O.
--- NOTE | 2024-07-17 15:49 | ED.CHESTPAIN ---
HPI - Chest Pain General Chief Complaint: Chest Pain <GEOFF Garland Last Filed: 07/17/24 16:02> Stated Complaint: chest pain <GEOFF Garland Last Filed: 07/17/24 16:02> Time Seen by Provider: 07/17/24 15:49 <GEOFF Garland Last Filed: 07/17/24 16:02> Focused HPI: Patient is a 79 y/o female who presents to the ED with c/o upper abdominal pain. Patient reports having pain across her upper abd/ rib cage over the past 2 days. Also reports having nausea with dry heaving, frequent belching, soreness in her L sided chest, diarrhea yesterday. Denies sick contacts. Denies known fevers. Patient also reports having a cyst on her L buttock for awhile, states it has been hurting worse over the past couple days. GENERAL: Mildly ill and pale-appearing, well-nourished, and in no acute distress. Frequent belching on exam. HEAD: Normocephalic, atraumatic. CHEST: Clear to auscultation. ?No respiratory distress. HEART: Regular rate and rhythm.? ABD: Diffuse tenderness throughout upper abdomen. Normoactive BS. NEURO: ?Alert and oriented x3. Patient screened in triage and initial orders placed.? ?Additional care and disposition to be based upon?diagnostic testing and treatment. <GEOFF Garland Last Filed: 07/17/24 16:02> Source: patient <GEOFF Garland Last Filed: 07/17/24 16:02> Mode of arrival: ambulatory <GEOFF Garland Last Filed: 07/17/24 16:02> Limitations: no limitations <GEOFF Garland Filed: 07/17/24 16:02> Related Data Allergies/Adverse Reactions: Allergies Allergy/AdvReac Type Severity Reaction Status Date / Time codeine Allergy Unknown Passout Verified 03/20/24 10:08 Penicillins Allergy Unknown Itching Verified 03/20/24 10:08 NSAIDS (Non-Steroidal AdvReac HX GASTRIC Verified 03/20/24 10:08 Anti-Inflamma BYPASS <Maureen Burton PA-C - Last Filed: 07/17/24 16:02> Review of Systems Review of Systems: CONSTITUTIONAL: Denies fever CARDIOVASCULAR: Reports chest pain. Denies palpitations, or edema. RESPIRATORY: Denies dyspnea. GASTROINTESTINAL: Reports abdominal pain, nausea, and diarrhea. <Radha Jung PA-C - Last Filed: 07/17/24 22:00> All systems reviewed & are unremarkable except as noted in HPI and below <Radha Jung PA-C - Last Filed: 07/17/24 22:00> [facility] Past Medical History Medical History: Medical History (Updated 07/17/24 @ 21:49 by Radha Jung PA-C) Abdominal pain Abnormal chest x-ray (07/17/24) right paratracheal soft tissue in the superior mediastinum on chest x-ray ER 07/17/2024 with need for contrast CT of the chest Acid reflux Acute non-recurrent maxillary sinusitis Anemia Anxiety Arthritis B12 deficiency BMI 34.0-34.9,adult Candidiasis of genitalia Chest pain Diarrhea History of anemia Hypertension Lipoma Muscle cramps Nausea PONV (postoperative nausea and vomiting) Seasonal allergies Serous otitis media Stomach ulcer <Maureen Burton PA-C - Last Filed: 07/17/24 16:02> Surgical History Surgical History: Surgical History History of appendectomy History of back surgery History of cholecystectomy History of gastric bypass History of hysterectomy History of left hip replacement Total knee replacement status Bilateral <Maureen Burton PA-C - Last Filed: 07/17/24 16:02> Family History Family History: Family History Father Acute myocardial infarction Cerebrovascular accident Mother Hypertension Other Family history of allergic disorder Family history of cardiovascular disease <Maureen Burton PA-C - Last Filed: 07/17/24 16:02> Social History Social History: Social History Smoking status: Never smoker Additional smoking assessment comments: DENIES ANY FORM OF TOBACCO USE Alcohol intake: current Drinks per week: 4 Substance use: never Do You Feel Safe in your Home?: Yes Lack of Transportation: No Lack of Food: Never True Current Housing: I Have Housing Concerned About Future Housing: No Difficulty Paying Gas/Electric Bills: No Difficulty Paying for Meds: No Currently Unemployed: No Education: High School Diploma/GED Difficulty w/ Childcare or Family Care: No Living arrangements: with family Additional living arrangements comments: Gender identity (if verbalized by the patient): Female Spiritual care concerns: No <GEOFF Garland Last Filed: 07/17/24 16:02> Exam Narrative: GENERAL: Well-appearing, well-nourished, and in no acute distress. HEAD: Normocephalic, atraumatic. EYES: EOMI. ENT: Nares clear, no rhinorrhea or epistaxis. Mucous membranes moist. Oropharynx without tonsillar hypertrophy exudate or other lesions. NECK: Supple. No JVD CHEST: Clear to auscultation. No respiratory distress. No wheezes rales or rhonchi HEART: Regular rate and rhythm. No murmur heard. Normal peripheral pulses. ABDOMEN: Soft, nondistended, normal active bowel sounds. Mildly tender to palpation in the epigastrium, without guarding EXTREMITIES: Normal range of motion. No edema. SKIN: Warm, dry, no rash. NEURO: No focal deficits. Alert and oriented x3. PSYCH: Normal mood and affect <Radha Jung PA-C - Last Filed: 07/17/24 22:00> Course Course Emergency Course: Patient reports feeling better, able tolerate p.o. challenge <GEOFF Somers Last Filed: 07/17/24 22:00> Consultations Consultation #1: Spoke with patient's PCP to ensure follow-up for further imaging of her chest <GEOFF Somers Last Filed: 07/17/24 22:00> Date: 07/17/24 <GEOFF Somers Last Filed: 07/17/24 22:00> Vital Signs Vital signs: Vital Signs Temperature 97.9 F 07/17/24 15:39 Pulse Rate 81 07/17/24 15:39 Respiratory Rate 16 07/17/24 15:39 Blood Pressure 142/91 H 07/17/24 15:39 Pulse Oximetry 100 07/17/24 15:39 Oxygen Delivery Room Air 07/17/24 15:39 Temperature 97.9 F 07/17/24 15:39 Pulse Rate 105 H 07/17/24 21:15 Respiratory Rate 17 07/17/24 21:15 Blood Pressure 107/87 07/17/24 19:31 Pulse Oximetry 97 07/17/24 21:00 Oxygen Delivery Room Air 07/17/24 16:48 <Maureen Burton PA-C - Last Filed: 07/17/24 16:02> Vital Signs Temperature 97.9 F 07/17/24 15:39 Pulse Rate 81 07/17/24 15:39 Respiratory Rate 16 07/17/24 15:39 Blood Pressure 142/91 H 07/17/24 15:39 Pulse Oximetry 100 07/17/24 15:39 Oxygen Delivery Room Air 07/17/24 15:39 Temperature 97.9 F 07/17/24 15:39 Pulse Rate 105 H 07/17/24 21:15 Respiratory Rate 17 07/17/24 21:15 Blood Pressure 107/87 07/17/24 19:31 Pulse Oximetry 97 07/17/24 21:00 Oxygen Delivery Room Air 07/17/24 16:48 <Radha Jung PA-C - Last Filed: 07/17/24 22:00> MDM - Chest Pain MDM Narrative Medical decision making narrative: MSE by ALICE in triage. <Maureen Burton PA-C - Last Filed: 07/17/24 16:02> MSE by ALICE in triage. Patient presents to the emergency department for abdominal pain, nausea and diarrhea. Patient is afebrile and nontoxic appearing. Her vitals are stable. Cbc without leukocytosis. Hemoglobin is stable. Metabolic panel with stable kidney function. Lipase is normal. EKG without acute ST changes. Baseline and 3 hour troponin are negative. Urine with possible evidence of infection. This will be sent for culture. Chest x-ray without acute cardiopulmonary abnormality. Shows a possible soft tissue abnormality in the right paratracheal soft tissue. CT abdomen and pelvis without acute findings. Shows some dehydration. Patient was hydrated with IV fluids, and given dose of Zofran and Pepcid with relief. Able tolerate p.o. challenge. Spoke with patient's PCP to ensure follow-up for further imaging of her chest. She was given warnings to return to the ER <Radha Jung PA-C - Last Filed: 07/17/24 22:00> Differential Diagnosis Differential diagnosis: Likely atypical chest pain, costochondritis, biliary colic and other (GERD, gastroenteritis, pancreatitis, pneumonia, diverticulitis) <Radha Jung PA-C - Last Filed: 07/17/24 22:00> Lab Data Attestation: I reviewed the patient's lab results. <Radha Jung PA-C - Last Filed: 07/17/24 22:00> Result diagrams: 07/17/24 15:53 07/17/24 15:53 <Maureen Burton PA-C - Last Filed: 07/17/24 16:02> Labs: Lab Results 07/17/24 07/17/24 07/17/24 Range/Units 15:53 18:58 21:22 WBC 8.1 (4.5-10.0) K/mm3 RBC 4.62 (4.2-5.4) M/mm3 Hgb 11.7 L (12.0-15.0) g/dL Hct 39.1 (37.0-47.0) % MCV 84.6 (80-100) fl MCH 25.3 L (26-34) pg MCHC 29.9 L (32-36) g/dl RDW 17.9 H (11.5-14.5) % Plt Count 349 (150-375) k/mm3 MPV 9.4 (7.4-10.4) fl Immature Gran % (Auto) 0.4 (0-0.5) % Neut % (Auto) 77.6 H (45.5-73.1) % Lymph % (Auto) 15.1 L (18.3-44.2) % [place] % (Auto) 5.9 (2.6-8.5) % Eos % (Auto) 0.5 (0-4.4) % Baso % (Auto) 0.5 (0.2-1.2) % Lymph # (Auto) 1.23 (0.9-3.2) K/mm3 [place] # (Auto) 0.5 (0.1-0.6) K/mm3 Eos # (Auto) 0.0 (0-0.3) K/mm3 Baso # (Auto) 0.0 (0.0-0.1) K/mm3 Abs Immat Gran (auto) 0.03 (0.00-0.031) K/mm3 Absolute Neuts (auto) 6.3 (1.3-6.7) K/mm3 Absolute Nucleated RBC 0.000 (0.0-0.012) K/mm3 Nucleated RBC % 0.0 (0.0-0.2) % Platelet Estimate Adequate (Adequate) Hypochromasia 1+ Anisocytosis 1+ Ovalocytes 1+ Schistocytes None seen PT 13.0 (11.1-14.7) Seconds INR 0.9 APTT 26.0 (22.3-36.8) Seconds Sodium 137 (137-145) mmol/L Potassium 4.3 (3.4-5.0) mmol/L Chloride 104 (98-107) mmol/L Carbon Dioxide 22 (22-30) mmol/L Anion Gap 11 (4-12) mmol/L BUN 17 (7-17) mg/dL Creatinine 1.10 H (0.7-1.0) mg/dL Estim Creat Clear Calc Not Reportable Estimated GFR 48 L (59 - ) Glucose 110 (65-110) mg/dL Calcium 10.5 H (8.4-10.2) mg/dL Total Bilirubin 0.7 (0.2-1.3) mg/dL AST 21 (14-36) U/L ALT 12 (6-35) U/L Alkaline Phosphatase 131 H (38-126) U/L Troponin I < 0.012 < 0.012 (0.000-0.034) ng/mL Total Protein 8.0 (6.3-8.2) g/dL Albumin 4.3 (3.5-5.1) g/dL Lipase 47 (23-300) U/L Urine Color Yellow (Yellow) Urine Appearance Cloudy H (Clear) Urine pH 5.0 (5.0-9.0) Ur Specific [place] > 1.045 H (1.001-1.035) Urine Protein Trace (Negative) mg/dL Urine Glucose (UA) 3+ H (Negative) mg/dL Urine Ketones 1+ H (Negative) mg/dL Ur Blood (Man) Negative (Negative) Urine Nitrate Negative (Negative) Urine Bilirubin Negative (Negative) Urine Urobilinogen 0.2 (<2.0) mg/dL Add Ur Microanalysis Reviewed Leukocyte Esterase Rfl Negative (Negative) STEPHANIE/UL Urine RBC 0-2 (0-2) /hpf Urine WBC 11-20 H (0-3) /hpf Ur Squamous Epith Cells Moderate (Few) /hpf Urine Bacteria 4+ H /hpf Urine Casts 0-2 Urine Mucus Present /lpf <Maureen Burton PA-C - Last Filed: 07/17/24 16:02> Lab Results 07/17/24 07/17/24 07/17/24 Range/Units 15:53 18:58 21:22 WBC 8.1 (4.5-10.0) K/mm3 RBC 4.62 (4.2-5.4) M/mm3 Hgb 11.7 L (12.0-15.0) g/dL Hct 39.1 (37.0-47.0) % MCV 84.6 (80-100) fl MCH 25.3 L (26-34) pg MCHC 29.9 L (32-36) g/dl RDW 17.9 H (11.5-14.5) % Plt Count 349 (150-375) k/mm3 MPV 9.4 (7.4-10.4) fl Immature Gran % (Auto) 0.4 (0-0.5) % Neut % (Auto) 77.6 H (45.5-73.1) % Lymph % (Auto) 15.1 L (18.3-44.2) % [place] % (Auto) 5.9 (2.6-8.5) % Eos % (Auto) 0.5 (0-4.4) % Baso % (Auto) 0.5 (0.2-1.2) % Lymph # (Auto) 1.23 (0.9-3.2) K/mm3 [place] # (Auto) 0.5 (0.1-0.6) K/mm3 Eos # (Auto) 0.0 (0-0.3) K/mm3 Baso # (Auto) 0.0 (0.0-0.1) K/mm3 Abs Immat Gran (auto) 0.03 (0.00-0.031) K/mm3 Absolute Neuts (auto) 6.3 (1.3-6.7) K/mm3 Absolute Nucleated RBC 0.000 (0.0-0.012) K/mm3 Nucleated RBC % 0.0 (0.0-0.2) % Platelet Estimate Adequate (Adequate) Hypochromasia 1+ Anisocytosis 1+ Ovalocytes 1+ Schistocytes None seen PT 13.0 (11.1-14.7) Seconds INR 0.9 APTT 26.0 (22.3-36.8) Seconds Sodium 137 (137-145) mmol/L Potassium 4.3 (3.4-5.0) mmol/L Chloride 104 (98-107) mmol/L Carbon Dioxide 22 (22-30) mmol/L Anion Gap 11 (4-12) mmol/L BUN 17 (7-17) mg/dL Creatinine 1.10 H (0.7-1.0) mg/dL Estim Creat Clear Calc Not Reportable Estimated GFR 48 L (59 - ) Glucose 110 (65-110) mg/dL Calcium 10.5 H (8.4-10.2) mg/dL Total Bilirubin 0.7 (0.2-1.3) mg/dL AST 21 (14-36) U/L ALT 12 (6-35) U/L Alkaline Phosphatase 131 H (38-126) U/L Troponin I < 0.012 < 0.012 (0.000-0.034) ng/mL Total Protein 8.0 (6.3-8.2) g/dL Albumin 4.3 (3.5-5.1) g/dL Lipase 47 (23-300) U/L Urine Color Yellow (Yellow) Urine Appearance Cloudy H (Clear) Urine pH 5.0 (5.0-9.0) Ur Specific [place] > 1.045 H (1.001-1.035) Urine Protein Trace (Negative) mg/dL Urine Glucose (UA) 3+ H (Negative) mg/dL Urine Ketones 1+ H (Negative) mg/dL Ur Blood (Man) Negative (Negative) Urine Nitrate Negative (Negative) Urine Bilirubin Negative (Negative) Urine Urobilinogen 0.2 (<2.0) mg/dL Add Ur Microanalysis Reviewed Leukocyte Esterase Rfl Negative (Negative) STEPHANIE/UL Urine RBC 0-2 (0-2) /hpf Urine WBC 11-20 H (0-3) /hpf Ur Squamous Epith Cells Moderate (Few) /hpf Urine Bacteria 4+ H /hpf Urine Casts 0-2 Urine Mucus Present /lpf <Radha Jung PA-C - Last Filed: 07/17/24 22:00> Imaging Data Radiologist's impression: ITS Impressions Chest X-Ray 07/17/24 16:21 IMPRESSION: 1: NO ACUTE CARDIOPULMONARY DISEASE. 2: Developing right paratracheal soft tissue. Correlation with contrast-enhanced CT chest recommended. Abdomen/Pelvis CT 07/17/24 18:01 IMPRESSION: Free fluid within the presacral space, an interval change from 2017 examination. Secondary signs suggesting hypovolemia, as detailed above. <Radha Jung PA-C - Last Filed: 07/17/24 22:00> ECG Data EKG #1: ECG completion date: 07/17/24 <GEOFF Somers Last Filed: 07/17/24 22:00> EKG Interpretation: normal rate, sinus rhythm, no ST changes and normal QT <GEOFF Somers Last Filed: 07/17/24 22:00> Critical Care Time Critical Care Time Critical Care Time: No <GEOFF Somers Last Filed: 07/17/24 22:00> Discharge Plan Discharge Clinical Impression: Bacteriuria, Dehydration Abdominal pain Qualifiers: Abdominal location: epigastric Qualified Code(s): R10.13 - Epigastric pain <GEOFF Garland Last Filed: 07/17/24 16:02> Patient Disposition: Home, Self-Care <GEOFF Garland Last Filed: 07/17/24 16:02> Condition: Improved <GEOFF Garland Last Filed: 07/17/24 16:02> Instructions: Dehydration (ED), Epigastric Pain (ED), Urinary Tract Infection in Older Adults (ED) <Maureen Burton PA-C - Last Filed: 07/17/24 16:02> Additional Instructions: Return to the emergency department if you experience fever, chest pain, shortness of breath, abdominal pain with nausea and vomiting, you are unable to keep down liquids or solids, or any other symptoms that are concerning to you. Follow up with your primary care doctor Your blood work was reassuring. There was a possible abnormal imaging finding on your chest x-ray. The radiologist recommends a CT scan of your chest. This can be done outpatient through your PCP Your urine showed a possible infection. I sent an antibiotic to the pharmacy <Maureen Burton PA-C - Last Filed: 07/17/24 16:02> Prescriptions: New cephalexin 500 mg capsule 500 mg PO Q12H 5 Days Qty: 10 0RF ondansetron 4 mg tablet,disintegrating 4 mg PO Q8H PRN (Reason: nausea and vomiting) Qty: 10 0RF No Action acetaminophen [Tylenol Extra Strength] 500 mg tablet 1,000 mg PO Q6H PRN (Reason: pain) Qty: 50 0RF lidocaine 5 % adhesive patch,medicated 1 patch topical DAILY Qty: 15 0RF Rx Instructions: leave on most painful area for up to 12 hrs mecobalamin (vitamin B12) 1,000 mcg tablet,chewable 1,000 mcg PO DAILY Qty: 30 5RF pantoprazole 40 mg tablet,delayed release (DR/EC) 40 mg PO QAM Qty: 30 5RF misoprostol 200 mcg tablet 200 mcg PO DAILY Qty: 30 5RF lisinopril 20 mg tablet 20 mg PO QAM Qty: 90 3RF ergocalciferol (vitamin D2) 1,250 mcg (50,000 unit) capsule 50,000 unit PO WEEKLY Qty: 4 5RF Jardiance 10 mg tablet 10 mg PO DAILY Qty: 90 3RF <Maureen Burton PA-C - Last Filed: 07/17/24 16:02> Follow-up/Referrals: Lisset Carter NP [Primary Care Provider] - <Maureen Burton PA-C - Last Filed: 07/17/24 16:02>
[2024-07-17 16:06] LABS: Basophils Percent Auto 0.5 % (0.2-1.2); Eosinophils Percent Auto 0.5 % (0-4.4); Hematocrit 39.1 % (37.0-47.0); Hemoglobin 11.7 g/dL (12.0-15.0); Immature Granulocyte Absolute 0.03 K/mm3 (0.00-0.031); Immature Granulocyte Percent A 0.4 % (0-0.5); Lymphocytes Absolute Auto 1.23 K/mm3 (0.9-3.2); Lymphocytes Percent Auto 15.1 % (18.3-44.2); Mean Corpuscular HGB Conc 29.9 g/dl (32-36); Mean Corpuscular Hemoglobin 25.3 pg (26-34); Mean Corpuscular Volume 84.6 fl (80-100); Mean Platelet Volume 9.4 fl (7.4-10.4); Monocytes Absolute Auto 0.5 K/mm3 (0.1-0.6); Monocytes Percent Auto 5.9 % (2.6-8.5); Neutrophils Absolute Auto 6.3 K/mm3 (1.3-6.7); Neutrophils Percent Auto 77.6 % (45.5-73.1); Platelet Count Result 349 k/mm3 (150-375); Red Blood Count 4.62 M/mm3 (4.2-5.4); Red Cell Distribution Width 17.9 % (11.5-14.5); White Blood Count 8.1 K/mm3 (4.5-10.0)
[2024-07-17 16:15] LABS: INR 0.9
[2024-07-17 16:17] LABS: Alanine Aminotransferase 12 U/L (6-35); Albumin Level 4.3 g/dL (3.5-5.1); Alkaline Phosphatase 131 U/L (38-126); Anion Gap 11 mmol/L (4-12); Aspartate Amino Transferase 21 U/L (14-36); Bilirubin,Total 0.7 mg/dL (0.2-1.3); Blood Urea Nitrogen 17 mg/dL (7-17); Calcium 10.5 mg/dL (8.4-10.2); Carbon Dioxide 22 mmol/L (22-30); Chloride 104 mmol/L (98-107); Estimated Glomerular Filt Rate 48; Glucose 110 mg/dL (65-110); Lipase 47 U/L (23-300); Potassium 4.3 mmol/L (3.4-5.0); Sodium 137 mmol/L (137-145)
[2024-07-17 16:28] LABS: Hypochromasia 1+; Ovalocytes 1+; Platelet Estimate Adequate (Adequate); Troponin I < 0.012 ng/mL (0.000-0.034)
[2024-07-17 16:29] LABS: Anisocytosis 1+; Schistocytes None Seen
[2024-07-17] MEDS: FAMOTIDINE 20 MG/2 ML VIAL IV PUSH (17:17)
[2024-07-17] MEDS: ONDANSETRON INJ 4 MG/2 ML VIAL IV PUSH (17:17)
[2024-07-17] MEDS: SODIUM CHLORIDE 0.9% IV 500 ML 999 ML IV CONT (18:42)
--- NOTE | 2024-07-17 18:54 | ECG_ITS ---
Test Date: 2024-07-17 18:57:59 Measurements Intervals [place] Rate: 70 P: 56 [place]: 173 QRS: -63 QRSD: 120 T: 69 QT: 405 QTc: 438 Interpretive Statements SINUS RHYTHM POSSIBLE LEFT ATRIAL ENLARGEMENT RIGHT BUNDLE BRANCH BLOCK LEFT ANTERIOR FASCICULAR BLOCK LEFT VENTRICULAR HYPERTROPHY AND ST-T CHANGE CANNOT R/O SEPTAL INFARCT, AGE INDETERMINATE ABNORMAL ECG Compared to ECG 07/17/2024 15:50:54 RIGHT BUNDLE BRANCH BLOCK NOW PRESENT Electronically Signed On 07-18-2024 06:19:13 CURRICULUM FACILITATOR by German Mauricio D.O.
[2024-07-17 19:25] LABS: Troponin I < 0.012 ng/mL (0.000-0.034)
--- NOTE | 2024-07-17 20:22 | PC.NURSE ---
Pt states she is unable to provide urine sample at this time. Pt provided with juice and will try to urinate after drinking.
[2024-07-17 21:41] LABS: Add Urine Microscopic? YES; Appearance Urine Cloudy (Clear); Bacteria Urine 4+ /hpf; Bilirubin Urine Negative (Negative); Blood Urine Negative (Negative); Color Urine Yellow (Yellow); Glucose Urine UA 3+ mg/dL (Negative); Ketones Urine 1+ mg/dL (Negative); Leukocyte Esterase Ur Negative LEU/UL (Negative); Mucus Urine Present /lpf; Need Manual Microscopic Reviewed; Nitrate Urine Negative (Negative); Non Pathogenic Casts 0-2; Protein Urine Trace mg/dL (Negative); RBC Urine 0-2 /hpf (0-2); Specific Grav Ur > 1.045 (1.001-1.035); Squamous Epithelial Cell Urine Moderate /hpf (Few); Urobilinogen Urine 0.2 mg/dL (<2.0)
--- NOTE | 2024-07-18 09:51 | ECG_ITS ---
Test Date: 2024-07-17 21:45:59 Measurements Intervals [place] Rate: 89 P: 51 [place]: 167 QRS: -66 QRSD: 108 T: 47 QT: 352 QTc: 430 Interpretive Statements SINUS RHYTHM LEFT AXIS DEVIATION INCOMPLETE LEFT BUNDLE BRANCH BLOCK POOR R WAVE PROGRESSION, ANTERIOR LEADS BASELINE ARTIFACT- I, II, AVR, AVL, AVF ABNORMAL ECG Compared to ECG 07/17/2024 18:57:59 INCOMPLETE LEFT BUNDLE BRANCH BLOCK NOW PRESENT Electronically Signed On 07-18-2024 10:41:47 PASSENGER SOLICITOR by German Mauricio D.O.
== END 2024-07-17 22:13 | disposition home or self-care (01) ==
PROVIDERS: Emergency Medicine; Emergency Provider Physician Assistant; PCP Nurse Practitioner Family
DX: R82.71 Bacteriuria (principal); E86.0 Dehydration; R10.13 Epigastric pain; I10 Essential (primary) hypertension; E53.8 Deficiency of other specified B group vitamins; D64.9 Anemia, unspecified; K21.9 Gastro-esophageal reflux disease without esophagitis; M19.90 Unspecified osteoarthritis, unspecified site; Z98.84 Bariatric surgery status; Z96.653 Presence of artificial knee joint, bilateral; Z96.642 Presence of left artificial hip joint; Z90.49 Acquired absence of other specified parts of digestive tract; Z90.710 Acquired absence of both cervix and uterus; Z79.84 Long term (current) use of oral hypoglycemic drugs; Z79.899 Other long term (current) drug therapy; R94.31 Abnormal electrocardiogram [ECG] [EKG]; I51.7 Cardiomegaly; I45.2 Bifascicular block
CPT/HCPCS: 36415; 71046; 74177; 80053; 81001; 83690; 84484; 85025; 85610; 85730; 93005; 96361; 96374; 96375; 99284; J2405; J7040; Q9967

== ENCOUNTER 2024-07-18 19:14 | Emergency (ER) | payer MEDICARE, OTHER, SELFPAY ==
[2024-07-18 19:18] VITALS: BP 130/85; PULSE 84; RESP 14; TEMP 36.3; O2SAT 100
[2024-07-18 20:38] VITALS: BP 152/83; PULSE 84; RESP 17; TEMP 36.6; O2SAT 100
[2024-07-18 21:39] LABS: Basophils Percent Auto 0.5 % (0.2-1.2); Eosinophils Percent Auto 0.5 % (0-4.4); Hematocrit 34.7 % (37.0-47.0); Hemoglobin 10.5 g/dL (12.0-15.0); Immature Granulocyte Absolute 0.04 K/mm3 (0.00-0.031); Immature Granulocyte Percent A 0.5 % (0-0.5); Lymphocytes Absolute Auto 1.06 K/mm3 (0.9-3.2); Lymphocytes Percent Auto 13.9 % (18.3-44.2); Mean Corpuscular HGB Conc 30.3 g/dl (32-36); Mean Corpuscular Hemoglobin 25.4 pg (26-34); Mean Corpuscular Volume 83.8 fl (80-100); Mean Platelet Volume 9.2 fl (7.4-10.4); Monocytes Absolute Auto 0.5 K/mm3 (0.1-0.6); Monocytes Percent Auto 6.7 % (2.6-8.5); Neutrophils Percent Auto 77.9 % (45.5-73.1); Platelet Count Result 282 k/mm3 (150-375); Red Blood Count 4.14 M/mm3 (4.2-5.4); Red Cell Distribution Width 17.6 % (11.5-14.5); White Blood Count 7.6 K/mm3 (4.5-10.0)
--- NOTE | 2024-07-18 21:40 | ECG_ITS ---
Test Date: 2024-07-18 22:29:01 Measurements Intervals [place] Rate: 81 P: 40 [place]: 171 QRS: -62 QRSD: 118 T: 46 QT: 359 QTc: 417 Interpretive Statements SINUS RHYTHM LEFT AXIS DEVIATION POSSIBLE LEFT ATRIAL ENLARGEMENT INCOMPLETE LEFT BUNDLE BRANCH BLOCK POOR R WAVE PROGRESSION, ANTERIOR LEADS BASELINE ARTIFACT- I, III, AVL, V2 ABNORMAL ECG Compared to ECG 07/17/2024 21:45:59 NO SIGNIFICANT CHANGE Electronically Signed On 07-19-2024 07:05:45 GUARD RAIL INSTALLER by German Mauricio D.O.
[2024-07-18 22:07] LABS: Alanine Aminotransferase 12 U/L (6-35); Albumin Level 3.9 g/dL (3.5-5.1); Alkaline Phosphatase 118 U/L (38-126); Anion Gap 7 mmol/L (4-12); Aspartate Amino Transferase 23 U/L (14-36); Bilirubin,Total 0.5 mg/dL (0.2-1.3); Blood Urea Nitrogen 15 mg/dL (7-17); Calcium 10.5 mg/dL (8.4-10.2); Carbon Dioxide 25 mmol/L (22-30); Chloride 104 mmol/L (98-107); Estimated CRCL calculation 41 ml/min; Estimated Glomerular Filt Rate 48; Glucose 109 mg/dL (65-110); Lipase 48 U/L (23-300); Potassium 4.2 mmol/L (3.4-5.0); Sodium 136 mmol/L (137-145)
[2024-07-18 22:18] LABS: Troponin I < 0.012 ng/mL (0.000-0.034)
[2024-07-18] MEDS: ACETAMINOPHEN 500 MG TABLET 1000 MG PO (22:21)
[2024-07-18] MEDS: SODIUM CHLORIDE 0.9% IV 1,000 ML 999 ML IV CONT (22:23)
[2024-07-18] MEDS: BELLADONNA ALK/PHENOB ELIX 10 ML, MAG HYDROX/ALUMINUM HYD/SIMETH 30 ML, LIDOCAINE HCL 2... PO (22:23)
[2024-07-18] MEDS: PANTOPRAZOLE SODIUM IV 40 MG VIAL IV PUSH (22:23)
[2024-07-18 22:30] VITALS: BP 135/76; PULSE 88; RESP 20; O2SAT 96
[2024-07-18 23:53] VITALS: BP 113/65; PULSE 75; RESP 20; O2SAT 96
--- NOTE | 2024-07-19 00:55 | ED.ABDPAIN ---
HPI - Abdominal Pain General Chief Complaint: Abdominal Pain Stated Complaint: nausea/abdominal pain Time Seen by Provider: 07/18/24 20:39 Source: patient and old records reviewed Mode of arrival: ambulatory Limitations: no limitations History of Present Illness HPI narrative: Patient is a 79 y/o female who presents to the ED with c/o upper abdominal pain. Patient was seen in the ED yesterday for similar pain. Had relatively unremarkable workup/imaging, was found to be somewhat dehydrated, was treated with fluids, Zofran, Pepcid. Was feeling much better with supportive therapy, able to tolerate p.o. intake, discharged home. Patient reports pain has persisted into today and become worse. She has taken Zofran at home, but has not taken anything further for the pain. Present throughout her upper abdomen. Denies radiation of pain. Denies chest pain or shortness of breath. Does report persistent nausea, denies vomiting. Denies diarrhea, constipation, fevers, urinary complaints. Related Data Allergies Allergy/AdvReac Type Severity Reaction Status Date / Time codeine Allergy Unknown Passout Verified 07/18/24 20:40 Penicillins Allergy Unknown Itching Verified 07/18/24 20:40 NSAIDS (Non-Steroidal AdvReac HX GASTRIC Verified 07/18/24 20:40 Anti-Inflamma BYPASS Review of Systems Review of Systems: All systems reviewed & are unremarkable except as noted in HPI. All systems reviewed & are unremarkable except as noted in HPI and below PMFSH Past Medical History Medical History Abdominal pain Abnormal chest x-ray (07/17/24) right paratracheal soft tissue in the superior mediastinum on chest x-ray ER 07/17/2024 with need for contrast CT of the chest Acid reflux Acute non-recurrent maxillary sinusitis Anemia Anxiety Arthritis B12 deficiency BMI 34.0-34.9,adult Candidiasis of genitalia Chest pain Diarrhea History of anemia Hypertension Lipoma Muscle cramps Nausea PONV (postoperative nausea and vomiting) Seasonal allergies Serous otitis media Stomach ulcer Surgical History Surgical History History of appendectomy History of back surgery History of cholecystectomy History of gastric bypass History of hysterectomy History of left hip replacement Total knee replacement status Bilateral Family History Family History Father Acute myocardial infarction Cerebrovascular accident Mother Hypertension Other Family history of allergic disorder Family history of cardiovascular disease Social History Social History Smoking status: Never smoker Additional smoking assessment comments: DENIES ANY FORM OF TOBACCO USE Alcohol intake: current Drinks per week: 4 Substance use: never Do You Feel Safe in your Home?: Yes Lack of Transportation: No Lack of Food: Never True Current Housing: I Have Housing Concerned About Future Housing: No Difficulty Paying Gas/Electric Bills: No Difficulty Paying for Meds: No Currently Unemployed: No Education: High School Diploma/GED Difficulty w/ Childcare or Family Care: No Living arrangements: with family Additional living arrangements comments: Gender identity (if verbalized by the patient): Female Spiritual care concerns: No Exam Narrative: GENERAL: Elderly, mildly uncomfortable appearing, obese with BMI of 34.1, non-toxic, in no acute distress. HEAD: Normocephalic, atraumatic. RESPIRATORY: Airway patent, respirations nonlabored. Clear to auscultation bilaterally, no rales, rhonchi, wheezing. CARDIOVASCULAR: Regular rate and rhythm without murmurs, rubs, or gallops. ABDOMINAL: Soft, tenderness to palpation throughout epigastric region. No rebound. No masses. Nondistended. Normoactive BS. MUSCULOSKELETAL: Moves all extremities. No gross deformities. SKIN: Warm, dry, normal color. NEURO: A&O X3. Speech clear. Cranial nerves II-XII grossly intact. No ataxic movements. PSYCHIATRIC: Appropriate mood and affect. Normal interaction. Course Vital Signs Vital signs: Vital Signs Temperature 97.4 F L 07/18/24 19:18 Pulse Rate 84 07/18/24 19:18 Respiratory Rate 14 07/18/24 19:18 Blood Pressure 130/85 07/18/24 19:18 Pulse Oximetry 100 07/18/24 19:18 Temperature 97.9 F 07/18/24 20:38 Pulse Rate 75 07/18/24 23:53 Respiratory Rate 20 07/18/24 23:53 Blood Pressure 113/65 07/18/24 23:53 Pulse Oximetry 96 07/18/24 23:53 MDM - Abdominal Pain MDM Narrative Medical decision making narrative: Patient presented to ED with persistent upper abdominal pain, seen in the ED yesterday for similar symptoms. Negative imaging aside from incidental findings which she was advised to follow-up with her primary as an outpatient. Was improved yesterday in the ED with Pepcid and Zofran. Vital signs are stable upon arrival today. Patient mildly uncomfortable appearing, but otherwise stable. Repeat laboratory studies today without significant changes. No leukocytosis. Stable H&H, consistent with previous records. CMP is unremarkable. Stable kidney function. No significant electrolyte abnormalities. Normal LFTs and lipase. EKG is nonischemic. Troponin is undetectable. Patient denies any chest pain. She did have 2 negative troponins yesterday as well. Low suspicion for ACS. Patient given Tylenol, Protonix, GI cocktail, fluids in the ED. on re-evaluation, she is feeling much better with supportive therapy. Discussed repeat laboratory studies today. Discussed my clinical suspicion of gastritis/gerd/PUD picture. Patient does have hx of previous ulcer. Discussed admission for further evaluation/GI workup versus discharge home with close outpatient follow-up. Utilize shared decision making with patient. Patient states pain is much improved and much more tolerable currently. She feels comfortable going home. She states she will follow-up with her primary care doctor. Will refer to GI. She does take Protonix daily. Will add Pepcid and sucralfate. Discussed repeating CT imaging today although again emphasized that imaging yesterday did not show any significant abnormalities and w/o changes in laboratory studies today, I have low suspicion for acute abdominal process/surgical abnormality. Utilized shared decision-making regarding this, patient feels comfortable foregoing imaging at this time. Patient given strict return precautions. She agrees with plan. Discharged in stable condition. Medical Records Attestation: I reviewed the patient's medical records. Lab Data Attestation: I reviewed the patient's lab results. 07/18/24 21:32 07/18/24 21:52 Labs: Lab Results 07/18/24 07/18/24 Range/Units 21:32 21:52 WBC 7.6 (4.5-10.0) K/mm3 RBC 4.14 L (4.2-5.4) M/mm3 Hgb 10.5 L (12.0-15.0) g/dL Hct 34.7 L (37.0-47.0) % MCV 83.8 (80-100) fl MCH 25.4 L (26-34) pg MCHC 30.3 L (32-36) g/dl RDW 17.6 H (11.5-14.5) % Plt Count 282 (150-375) k/mm3 MPV 9.2 (7.4-10.4) fl Immature Gran % (Auto) 0.5 (0-0.5) % Neut % (Auto) 77.9 H (45.5-73.1) % Lymph % (Auto) 13.9 L (18.3-44.2) % [place] % (Auto) 6.7 (2.6-8.5) % Eos % (Auto) 0.5 (0-4.4) % Baso % (Auto) 0.5 (0.2-1.2) % Lymph # (Auto) 1.06 (0.9-3.2) K/mm3 [place] # (Auto) 0.5 (0.1-0.6) K/mm3 Eos # (Auto) 0.0 (0-0.3) K/mm3 Baso # (Auto) 0.0 (0.0-0.1) K/mm3 Abs Immat Gran (auto) 0.04 H (0.00-0.031) K/mm3 Absolute Neuts (auto) 6.0 (1.3-6.7) K/mm3 Absolute Nucleated RBC 0.000 (0.0-0.012) K/mm3 Nucleated RBC % 0.0 (0.0-0.2) % Sodium 136 L (137-145) mmol/L Potassium 4.2 (3.4-5.0) mmol/L Chloride 104 (98-107) mmol/L Carbon Dioxide 25 (22-30) mmol/L Anion Gap 7 (4-12) mmol/L BUN 15 (7-17) mg/dL Creatinine 1.10 H (0.7-1.0) mg/dL Estim Creat Clear Calc 41 ml/min Estimated GFR 48 L (59 - ) Glucose 109 (65-110) mg/dL Calcium 10.5 H (8.4-10.2) mg/dL Total Bilirubin 0.5 (0.2-1.3) mg/dL AST 23 (14-36) U/L ALT 12 (6-35) U/L Alkaline Phosphatase 118 (38-126) U/L Troponin I < 0.012 (0.000-0.034) ng/mL Total Protein 7.0 (6.3-8.2) g/dL Albumin 3.9 (3.5-5.1) g/dL Lipase 48 (23-300) U/L ECG Data EKG #1: Attestation: I personally reviewed and interpreted this ECG as follows: ECG completion date: 07/18/24 ECG completion time: 22:29 Prior ECG tracings: available for review (unchanged from 07/17) normal rate (81), sinus rhythm, non-specific ST changes and LBBB Discharge Plan Discharge Clinical Impression: Acute upper abdominal pain Patient Disposition: Home, Self-Care Condition: Stable Instructions: Antibiotic Form, Gastritis (ED), Diet for Stomach Ulcers and Gastritis (ED), GERD (Gastroesophageal Reflux Disease) (ED), Duodenitis (ED) Additional Instructions: Continue home medications, including pantoprazole. Recommend taking Pepcid and sucralfate as directed, in addition. Continue Tylenol as needed for discomfort. Continue Zofran as needed for nausea. Recommend clear liquids or bland diet until symptoms improved. Avoid foods that are very greasy, spicy, fatty. Avoid laying flat immediately after eating. Follow-up with primary care doctor and GI for further evaluation. Call office on Sunday to make appointment. Return to the ED if you experience worsening or severe symptoms, unable to keep down food or drink, severe pain, fevers, rectal bleeding, vomiting blood, or any other symptoms of concern. Prescriptions: New sucralfate 100 mg/mL suspension 1 g PO QID Qty: 414 0RF famotidine 20 mg tablet 20 mg PO BID Qty: 60 0RF No Action acetaminophen [Tylenol Extra Strength] 500 mg tablet 1,000 mg PO Q6H PRN (Reason: pain) Qty: 50 0RF lidocaine 5 % adhesive patch,medicated 1 patch topical DAILY Qty: 15 0RF Rx Instructions: leave on most painful area for up to 12 hrs cephalexin 500 mg capsule 500 mg PO Q12H 5 Days Qty: 10 0RF ondansetron 4 mg tablet,disintegrating 4 mg PO Q8H PRN (Reason: nausea and vomiting) Qty: 10 0RF mecobalamin (vitamin B12) 1,000 mcg tablet,chewable 1,000 mcg PO DAILY Qty: 30 5RF pantoprazole 40 mg tablet,delayed release (DR/EC) 40 mg PO QAM Qty: 30 5RF misoprostol 200 mcg tablet 200 mcg PO DAILY Qty: 30 5RF lisinopril 20 mg tablet 20 mg PO QAM Qty: 90 3RF ergocalciferol (vitamin D2) 1,250 mcg (50,000 unit) capsule 50,000 unit PO WEEKLY Qty: 4 5RF Jardiance 10 mg tablet 10 mg PO DAILY Qty: 90 3RF Follow-up/Referrals: Lisset Carter NP [Primary Care Provider] - Isma Cordova MD [Physician] - (GI) Danny Del Toro MD [Physician] - (GI) Time of Disposition: 01:01
== END 2024-07-19 01:30 | disposition home or self-care (01) ==
PROVIDERS: Emergency Provider Physician Assistant; PCP Nurse Practitioner Family
DX: R01.0 Benign and innocent cardiac murmurs (principal); E53.8 Deficiency of other specified B group vitamins
CPT/HCPCS: 36415; 80053; 83690; 84484; 85025; 93005; 96361; 96374; 99284; A9270; J2470; J7030

== ENCOUNTER 2024-07-28 12:01 | Outpatient (CLI) | payer MEDICARE, OTHER, SELFPAY ==
--- NOTE | ~2024-07-28 | XR_ITS ---
XR abdomen/kub 1V Ordering provider: AYAAN Calabrese History: . R11.0 - Nausea . Comparison: None. FINDINGS: BOWEL: Nonobstructive bowel gas pattern. ORGANOMEGALY: None. SIGNIFICANT PATHOLOGIC CALCIFICATIONS: None. OTHER: No free air is seen under the diaphragm. Degenerative changes of the spine. Left sacroiliitis. Bilateral hip arthroplasty. IMPRESSION: NO ACUTE ABDOMINAL FINDINGS. Reviewed, dictated and finalized at location A. 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
[2024-07-28 13:11] LABS: Hematocrit 36.5 % (37.0-47.0); Mean Corpuscular HGB Conc 30.1 g/dl (32-36); Mean Corpuscular Hemoglobin 25.3 pg (26-34); Mean Corpuscular Volume 84.1 fl (80-100); Mean Platelet Volume 9.5 fl (7.4-10.4); Platelet Count Result 338 k/mm3 (150-375); Red Blood Count 4.34 M/mm3 (4.2-5.4); White Blood Count 6.1 K/mm3 (4.5-10.0)
[2024-07-28 13:36] LABS: Alanine Aminotransferase 12 U/L (6-35); Albumin Level 3.8 g/dL (3.5-5.1); Alkaline Phosphatase 114 U/L (38-126); Anion Gap 8 mmol/L (4-12); Aspartate Amino Transferase 24 U/L (14-36); Bilirubin,Total 0.4 mg/dL (0.2-1.3); Blood Urea Nitrogen 13 mg/dL (7-17); CRP 2.6 mg/dL (<1.0); Calcium 10.2 mg/dL (8.4-10.2); Carbon Dioxide 29 mmol/L (22-30); Chloride 104 mmol/L (98-107); Estimated Glomerular Filt Rate > 60; Glucose 102 mg/dL (65-110); Lipase 23 U/L (23-300); Potassium 3.5 mmol/L (3.4-5.0); Sodium 141 mmol/L (137-145)
== END 2024-07-28 12:02 | disposition home or self-care (01) ==
PROVIDERS: PCP Nurse Practitioner Family; Referring Provider Nurse Practitioner Family; Visit Provider Nurse Practitioner Family
DX: R10.9 Unspecified abdominal pain (principal); R11.0 Nausea
CPT/HCPCS: 36415; 74018; 80053; 83690; 85027; 86140

== ENCOUNTER 2024-07-31 07:09 | Outpatient (CLI) | payer MEDICARE, OTHER, SELFPAY ==
--- NOTE | ~2024-07-31 | CT_ITS ---
Clinical Indication: Right paratracheal soft tissue CT Scan of the Chest with Contrast: Technique: Contiguous sections were acquired throughout the chest after intravenous administration of 100 cc of Omnipaque 350. Dose reduction technique was used on this scan by utilizing automated expos ure control and iterative reconstruction technique. The dose-length product (DLP) was 160.14 mGy-cm. Findings: Probable enlarged thyroid gland, with hypodense nodules at the inferior left lower pole and isthmus. There is no evidence of any significant mediastinal, hilar or axillary lymphadenopathy. There is no f illing defect in the pulmonary arterial tree to suggest pulmonary embolus. There is no evidence of ao rtic dissection or aneurysm. There is no evidence of pleural or pericardial effusion. The lungs are clear. No pulmonary nodules or infiltrates are noted. Images through the upper abdomen reveal no abnormalities. Impression: Enlarged thyroid gland with hypodense nodules, as above. Consider thyroid ultrasound and/or thyroid f unction testing as indicated. No other significant findings. Reviewed, dictated and finalized at [facility]. WINDER Impression: Enlarged thyroid gland with hypodense nodules, as above. Consider thyroid ultra sound and/or thyroid function testing as indicated. No other significant findings.
== END 2024-07-31 07:10 | disposition home or self-care (01) ==
PROVIDERS: PCP Nurse Practitioner Family; Visit Provider Family Medicine
DX: R93.89 Abnormal findings on diagnostic imaging of other specified body structures (principal); E04.9 Nontoxic goiter, unspecified
CPT/HCPCS: 71260; Q9967

== ENCOUNTER 2024-08-18 11:56 | Outpatient (CLI) | payer MEDICARE, OTHER, SELFPAY ==
[2024-08-18 14:19] LABS: Free T4 Free Thyroxine 1.22 ng/dL (0.78-2.19)
[2024-08-18 14:22] LABS: Thyroid Stimulating Hormone 0.266 uIU/mL (0.465-4.680); Total Triiodothyronine (T3) 1.14 NG/ML (0.97-1.69)
== END 2024-08-18 11:57 | disposition home or self-care (01) ==
PROVIDERS: PCP Nurse Practitioner Family; Visit Provider Nurse Practitioner Family
DX: E04.9 Nontoxic goiter, unspecified (principal)
CPT/HCPCS: 36415; 84439; 84443; 84480

== ENCOUNTER 2024-08-19 14:32 | Outpatient (CLI) | payer MEDICARE, OTHER, SELFPAY ==
--- NOTE | ~2024-08-19 | US_ITS ---
EXAMINATION: US thyroid DATE: 08/19/2024 15:42 INDICATION: Nontoxic goiter, unspecified. TECHNIQUE: Multiple ultrasound images of the thyroid were obtained. COMPARISON: None. FINDINGS: The right thyroid lobe measures 6.3 x 2.9 x 3.0 cm. The left thyroid lobe measures 7.1 x 2.2 x 2.6 c m. The thyroid is enlarged and heterogeneous and filled with solid nodules of similar ultrasound jorge l earance without normal intervening parenchyma. In the left thyroid lobe, there is a 15 mm solid, hypo echoic, wider than tall nodule with lobulated margin without echogenic foci (TI-RADS TR4). In the lef t thyroid lobe, there is a 9 mm solid, hypoechoic, wider than tall nodule with smooth margin and punc cole echogenic foci (TR5). In the thyroid isthmus, there is a 9 mm solid, hypoechoic, wider than tall nodule with smooth margin without echogenic foci (TR4). In the right thyroid lobe, there is a 10 mm solid, hypoechoic, wider than tall nodule with smooth margin and punctate echogenic foci (TR5). IMPRESSION: 1. Multinodular goiter. Ultrasound-guided fine-needle aspiration of the 10 mm right thyroid nodule an d 15 mm left thyroid nodule is recommended. Reviewed, dictated and finalized at location A. 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 Multinodular goiter. Ultrasound-guided fine-needle aspiration of the 10 mm r ight thyroid nodule and 15 mm left thyroid nodule is recommended.
== END 2024-08-19 14:33 | disposition home or self-care (01) ==
PROVIDERS: PCP Nurse Practitioner Family; Visit Provider Nurse Practitioner Family
DX: E04.2 Nontoxic multinodular goiter (principal)
CPT/HCPCS: 76536

== ENCOUNTER 2024-08-21 00:53 | Day surgery (SDC) | payer MEDICARE, OTHER, SELFPAY ==
[2024-08-04 14:10] VITALS: BMI 33.8
[2024-08-21 10:04] VITALS: BP 146/83; PULSE 67; RESP 18; TEMP 36.4; O2SAT 97
[2024-08-21] MEDS: LACTATED RINGERS 1,000 ML 150 ML IV CONT (10:05)
--- NOTE | 2024-08-21 10:18 | WPDANESEPPF ---
Anes - Initial Pre Proc Eval Procedure: Operation Date: 08/21/24 13:30 Proposed Procedures p Esophagogastroduodenoscopy - Isma Cordova MD Date/Time: 08/21/24 10:18 Surgeon: Isma Cordova MD Pre Op Diagnosis: Nausea,abd pain Patient Data Age: 79 Gender: F Height: 1.63 m Weight: 88.9 kg Last Vital Signs Temp 97.5 F L 08/21/24 10:04 Pulse 67 08/21/24 10:04 Resp 18 08/21/24 10:04 BP 146/83 H 08/21/24 10:04 Pulse Ox 97 08/21/24 10:04 O2 Del Method Room Air 08/21/24 10:04 Allergies Allergy/AdvReac Type Severity Reaction Status Date / Time codeine Allergy Unknown Passout Verified 08/21/24 09:45 Penicillins Allergy Unknown Itching Verified 08/21/24 09:45 NSAIDS (Non-Steroidal AdvReac HX GASTRIC Verified 08/21/24 09:45 Anti-Inflamma BYPASS Home Medications ?Medication ?Instructions ?Recorded ?Confirmed ?Type mecobalamin (vitamin B12) 1,000 1,000 mcg PO DAILY #30 tabs 02/20/24 08/21/24 Rx mcg chewable tablet misoprostol 200 mcg tablet 200 mcg PO DAILY #30 tabs 02/20/24 08/21/24 Rx lisinopril 20 mg tablet 20 mg PO QAM #90 tabs 05/26/24 08/21/24 Rx acetaminophen 500 mg tablet 1,000 mg (2 x 500 mg) PO Q6H PRN 06/21/24 08/04/24 Rx (Tylenol Extra Strength) pain #50 tabs ergocalciferol (vitamin D2) 1,250 50,000 unit PO WEEKLY #4 caps 07/04/24 08/04/24 Rx mcg (50,000 unit) capsule empagliflozin 10 mg tablet 10 mg PO DAILY #90 tabs 07/08/24 08/21/24 Rx (Jardiance) ondansetron 4 mg disintegrating 4 mg PO Q8H PRN nausea and 07/17/24 08/04/24 Rx tablet vomiting #10 tabs famotidine 20 mg tablet 20 mg PO BID #60 tabs 07/19/24 08/21/24 Rx pantoprazole 40 mg tablet,delayed 40 mg PO BID 1 month #60 tabs 07/28/24 08/21/24 Rx release sucralfate 100 mg/mL oral 1 g (10 mL) PO QID 4 weeks #1,120 07/28/24 08/21/24 Rx suspension mL Patient hx anesthesia problems: none Family hx anesthesia problems: none Results Review: All pre-operative results and documents have been reviewed as part of the pre-operative evaluation. [facility] Past Medical History Medical History (Updated 07/31/24 @ 12:37 by Lisset Carter NP) Enlarged thyroid Abnormal chest x-ray (07/17/24) right paratracheal soft tissue in the superior mediastinum on chest x-ray ER 07/17/2024 with need for contrast CT of the chest Chest pain Nausea Abdominal pain Candidiasis of genitalia Acute non-recurrent maxillary sinusitis Muscle cramps Serous otitis media BMI 34.0-34.9,adult Diarrhea Lipoma B12 deficiency Anemia Acid reflux Arthritis History of anemia Seasonal allergies PONV (postoperative nausea and vomiting) Anxiety Hypertension Stomach ulcer Surgical History Surgical History (Updated 07/30/24 @ 20:03 by AN CalabreseC) History of hysterectomy History of cholecystectomy History of appendectomy History of back surgery History of gastric bypass History of left hip replacement Total knee replacement status Bilateral Family History Family History Father Acute myocardial infarction Cerebrovascular accident Mother Hypertension Other Family history of allergic disorder Family history of cardiovascular disease Social History Social History Smoking status: Never smoker Additional smoking assessment comments: DENIES ANY FORM OF TOBACCO USE Alcohol intake: current Drinks per week: 4 Substance use: never Do You Feel Safe in your Home?: Yes Lack of Transportation: No Lack of Food: Never True Current Housing: I Have Housing Concerned About Future Housing: No Difficulty Paying Gas/Electric Bills: No Difficulty Paying for Meds: No Currently Unemployed: No Education: High School Diploma/GED Difficulty w/ Childcare or Family Care: No Living arrangements: with family Additional living arrangements comments: Gender identity (if verbalized by the patient): Female Spiritual care concerns: No Anes - Eval Final PreProcedure Day of Procedure 12/12/24 10:18 Patient weight: normal Heart: regular rate and rhythm Lungs: clear to auscultation Airway: Mallampati scale class II Neurological: alert and oriented Last oral intake: >/= 8 hours ASA classification: III Emergent: no Anesthetic plan: proceed Anesthesia type and monitoring: general GIVS and standard monitoring Results Review: All pre-operative results and documents have been reviewed as part of the pre-operative evaluation. Informed Consent: The patient's anesthetic plan and its attendant risks and benefits were discussed with the patient/family/POA. Questions were solicited and answers provided to the satisfaction of the patient/family/POA.
--- NOTE | 2024-08-21 10:37 | WPDHPUPDATE1 ---
History and Physical Update Update Date/Time: 08/21/24 10:37 History and Physical has been reviewed, including an updated exam of the patient. There are NO changes in the patient's condition. Risks, benefits, and alternatives have been discussed and questions answered. Patient agrees to proceed with procedure.
[2024-08-21 10:51] VITALS: BP 137/66; PULSE 60; RESP 16; O2SAT 98
[2024-08-21 11:01] VITALS: BP 111/82; PULSE 61; RESP 18; O2SAT 100
[2024-08-21 11:11] VITALS: BP 107/80; PULSE 68; RESP 20; O2SAT 100
== END 2024-08-21 11:23 | disposition home or self-care (01) ==
PROVIDERS: PCP Nurse Practitioner Family; Referring Provider Nurse Practitioner Family; Visit Provider Internal Medicine Gastroenterology
PROC: 0DJ08ZZ Inspection of Upper Intestinal Tract, Via Natural or Artificial Opening Endoscopic (ICD-10-PCS; CPT 43235; principal; 2024-08-21 13:30)
DX: K29.50 Unspecified chronic gastritis without bleeding (principal); Z98.84 Bariatric surgery status
CPT/HCPCS: 43239; 88305; J2003; J2704; J7120

== ENCOUNTER 2024-09-30 12:20 | Outpatient (CLI) | payer MEDICARE, OTHER, SELFPAY ==
--- NOTE | ~2024-09-30 | US_ITS ---
EXAMINATION: US FNA w image guidance DATE: 09/30/2024 13:47 INDICATION: Nontoxic multinodular goiter TECHNIQUE: A time-out was performed to verify the patient's name, date of , and procedure to be performed . The procedure and its benefits and risks were discussed with the patient. Risks specifically discus sed included bleeding and infection. The patient understood the risks and agreed to proceed. The neck was prepped and draped in the usual sterile manner. Attention was first turned to the left thyroid n odule. 3 mL 1% lidocaine was used for local anesthesia. 5 passes were made with a 25G needle into th e lesion. Appropriate needle location was documented with continuous sonographic guidance. Attention was entered to the right thyroid nodule. An additional 3 mL 1% lidocaine was used for local anesthes ia. 6 passes were made with a 20 5G needle into the lesion. Appropriate needle location was documente d with continuous sonographic guidance. Sterile bandages were applied. There were no immediate compl ications. FINDINGS: Grayscale ultrasound images demonstrate biopsy needles advanced into a 1.7 cm very hypoechoic nodule with lobular margins in the inferior left thyroid lobe. On real-time sonography the lesion appeared c ystic with more echogenic blood progressively filling a significant portion of the lesion during the course of the biopsy. Subsequent images demonstrate biopsy needles advanced into the 10 mm hypoechoic right thyroid nodule. On real-time imaging of the echogenic foci appear to demonstrate distinct post erior comet tailing most consistent with inspissated colloid in the setting of a colloid cyst. IMPRESSION: 1. Successful ultrasound-guided fine needle aspiration of the likely cystic 1.7 cm left thyroid nodu le of concern. 2. Successful ultrasound-guided fine-needle aspiration of the 1.0 cm right thyroid nodule of concern with ultrasound appearance suggesting a colloid cyst. Reviewed, dictated and finalized at location A. IRATORY PHYSICIAN IMPRESSION: 1. Successful ultrasound-guided fine needle aspiration of the likely cystic 1. 7 cm left thyroid nodule of concern. 2. Successful ultrasound-guided fine-needle aspiration of the 1.0 cm right thyr oid nodule of concern with ultrasound appearance suggesting a colloid cyst.
--- NOTE | ~2024-09-30 | US_ITS ---
EXAMINATION: US FNA additional DATE: 09/30/2024 13:47 INDICATION: Nontoxic multinodular goiter TECHNIQUE: A time-out was performed to verify the patient's name, date of , and procedure to be performed . The procedure and its benefits and risks were discussed with the patient. Risks specifically discus sed included bleeding and infection. The patient understood the risks and agreed to proceed. The neck was prepped and draped in the usual sterile manner. Attention was first turned to the left thyroid n odule. 3 mL 1% lidocaine was used for local anesthesia. 5 passes were made with a 25G needle into th e lesion. Appropriate needle location was documented with continuous sonographic guidance. Attention was entered to the right thyroid nodule. An additional 3 mL 1% lidocaine was used for local anesthes ia. 6 passes were made with a 20 5G needle into the lesion. Appropriate needle location was documente d with continuous sonographic guidance. Sterile bandages were applied. There were no immediate compl ications. FINDINGS: Grayscale ultrasound images demonstrate biopsy needles advanced into a 1.7 cm very hypoechoic nodule with lobular margins in the inferior left thyroid lobe. On real-time sonography the lesion appeared c ystic with more echogenic blood progressively filling a significant portion of the lesion during the course of the biopsy. Subsequent images demonstrate biopsy needles advanced into the 10 mm hypoechoic right thyroid nodule. On real-time imaging of the echogenic foci appear to demonstrate distinct post erior comet tailing most consistent with inspissated colloid in the setting of a colloid cyst. IMPRESSION: 1. Successful ultrasound-guided fine needle aspiration of the likely cystic 1.7 cm left thyroid nodu le of concern. 2. Successful ultrasound-guided fine-needle aspiration of the 1.0 cm right thyroid nodule of concern with ultrasound appearance suggesting a colloid cyst. Reviewed, dictated and finalized at location A. Y DUTY DIESEL MECHANIC IMPRESSION: 1. Successful ultrasound-guided fine needle aspiration of the likely cystic 1. 7 cm left thyroid nodule of concern. 2. Successful ultrasound-guided fine-needle aspiration of the 1.0 cm right thyr oid nodule of concern with ultrasound appearance suggesting a colloid cyst.
--- OUTSIDE RECORDS SUMMARY | 2024-10-02 18:11 | XMS_ITS | Continuity of Care Document ---
Author Organization [facility] Address [address] [place] [address] Phone Care Team Providers Care Release Manager Name Role Phone Shahla Guillen Unavailable Unavailable Procedures Procedure Date Eye Exam & Treatment Eye Exam & Treatment Progressive Lens, Plastic Vision Svcs Frames Purchases Tax - Medical Eye Exam, New Patient Refraction Advance Directives Directive Yes / No Effective Date File Name No Information Encounters Encounter Description Practice Location Reason(s) For Visit Diagnoses Date Provider Providers Copied on Encounter [facility], [id number] [place] [address] [address], [place], [place], [id number], tel:[phone] [facility] No Information [phone] Mindy Gale. [address] , [address], [place], [place], [facility], . tel:[phone] [facility], [address] [place] [address] [address], [place], [place], [id number], [place] tel:[phone] [facility] No Information 6[address] Brittany Carroll. [address] [facility] [address], [place], [place], [facility], . tel:[phone] [facility], [address], [place], [place], [id number], [place] tel:[phone] [facility] No Information [address] [employer]. [address] [facility] [address], [address], [place], [place], [address], [place]. tel:[phone] Referring Provider: Glen granados, [address], [address]. tel:[phone] sulting Provider: Rani Barillas, [address] [place], [address]. tel:[phone] [facility], [address] [facility] [address], [place], [place], [id number], [place] tel:[phone] [facility] No Information 8 Brittany Carroll. [address], [address], [place]. tel:[phone] Family History Family Member Type Diagnosis Age At Onset No Information Payers Payer name Insurance type Covered green party ID Authoriza tion(s) No Information Social History [...]
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
--- OUTSIDE RECORDS SUMMARY | 2024-10-02 18:11 | XMS_ITS | Referral Summary ---
Author Organization [facility] Address [address] [place] [address] Care Team Providers Care Supervisor Soldering Name Role Phone Melissa Herman RN Unavailable Luz Tobias SCIENCE LIAISON-LOAN AUDITOR Primary Care Provider + Source Comments [facility],non-owned Affiliates and Associated Physician Practices is amultiple site organization consisting of ambulatory clinics and hospital sitesin [place], [place], [place] and [place]. This disclosure is being madepursuant to the Care Everywhere program and may not contain all information available regarding this patient. Last updated 18.[facility] Allergies Active Allergy Reactions Criticality Noted Date Comments Codeine Other High 06/17/2012 passed out Penicillins Other Medium 06/17/2012 vaginal burning and itching Medications * Be aware that medications may not be up to date on this document. Alwaysverify current medications with the patient. Medication Sig Dispensed Refills Start Date End Date Status multivitamin daily (THERAGRAN) tablet Take 1 Tab by mouth daily with food. Active Calcium-Vitamin D-Vitamin K (CHEWABLE CALCIUM PO) Take by mouth once daily. Active Cyanocobalamin (B-12 COMPLIANCE INJECTION) 1000 MCG/ML 1,000 mcg by Injection route every 60 days Active acetaminophen (TYLENOL) 325 MG tablet Take 325 mg by mouth every 4 hours as needed for Pain Maximum allowable Acetaminophen amount = 4 Grams (4000 mg) / 24 hours. Active miSOPROStol (CYTOTEC) 200 MCG tablet Take 1 tablet by mouth 2 times daily 120 tablet 10/27/2017 Active pantoprazole EC (PROTONIX) 40 MG tablet Take 1 tablet by mouth once daily 90 tablet 3 10/27/2017 Active sucralfate (CARAFATE) 1 GM/10ML suspension Take 10 mL by mouth 4 times daily 1200 mL 2 10/27/2017 Active Additional Information Patient not taking.Reported on 01/25/2018 lisinopril (PRINIVIL; ZESTRIL) 20 MG tablet Take 20 mg by mouth once daily 12/17/2017 Active Active Problems Problem Noted Date Diagnosed Date Epigastric abdominal pain 10/25/2017 Marginal ulcer 03/29/2015 Social History Tobacco Use Types Packs/Day Years Used Date Smoking Tobacco: Never Smokeless Tobacco: Never Tobacco Cessation:Counseling Given: No Alcohol Use Standard Drinks/Week Comments Yes 0 (1 standard drink = 0.6 oz pure alcohol) SOCIALLY 1 GLASS OF WINE PER MONTH Sex and Gender Information Value Date Recorded Sex Assigned at Not on file Gender Identity Not on file Sexual Orientation Not on file Last Filed Vital Signs Vital Sign Reading Time Taken Comments Blood Pressure 126/83 05/03/2018 11:21 AM CDT Pulse 71 05/03/2018 11:21 AM CDT Temperature 36.1 ??C (97 ??F) 01/25/2018 9:30 AM CDT Respiratory Rate 21 01/25/2018 9:45 AM CDT Oxygen Saturation 94% 01/25/2018 9:45 AM CDT Inhaled Oxygen Concentration - - Weight 83.5 kg (184 lb) 05/03/2018 11:21 AM CDT Height 162.6 cm (5' 4 ) 05/03/2018 11:21 AM CDT Body Mass Index 31.58 05/03/2018 11:21 AM CDT Functional Status Functional Status Response Date of Assess ment Is person deaf or have serious hearing difficult y? No 10/26/2017 Is person blind or have serious difficulty seein g? No 10/26/2017 Does person have serious dif ficulty walking/climbing stairs? No 10/26/2017 Does person have difficulty dressing/bathing? No 10/26/2017 Does person have difficulty doing errands alone? No 10/26/2017 Cognitive Status Response Date of Assessm ent Does person have difficulty concentrating/remembering/making decisions? No 10/26/2017 Plan of Treatment Not on file Procedures Procedure Name Priority Date/Time Associated Diagnosis Comments BASIC METABOLIC PANEL (CALCIUM TOTAL) AM Draw 10/27/2017 5:22 AM DIRECTOR OF SUSTAINABILITY from Last 3 Months or Most Recently Relevant to Health Maintenance Results * (ABNORMAL) BASIC METABOLIC PANEL (CALCIUM TOTAL) (10/27/2017 5:22 AM DIRECTOR OF SUSTAINABILITY) Glucose 84 74 - 106 mg/dL 10/27/2017 5:52 AM [facility] Sodium 140 136 - 145 mmol/L 10/27/2017 5:52 AM [facility] Potassium 3.4(L) 3.5 - 5.1 mmol/L 10/27/2017 5:52 AM [facility] Chloride 106 98 - 107 mmol/L 10/27/2017 5:52 AM [facility] CO2 29 22 - 31 mmol/L 10/27/2017 5:52 AM [facility] Calcium 9.1 8.5 - 10.1 mg/dL 10/27/2017 5:52 AM [facility] Anion Gap 5(L) 8 - 16 mmol/L 10/27/2017 5:52 AM [facility] BUN 20 7 - 21 mg/dL 10/27/2017 5:52 AM [facility] Creatinine 0.75 0.50 - 1.30 mg/dL 10/27/2017 5:52 AM [facility] eGFR by MDRD >60 mL/min/1.7 3m2 10/27/2017 5:52 AM [facility] eGFR by MDRD >60 mL/min/1.7 3m2 10/27/2017 5:52 AM [facility] Blood BLOOD SPECIMEN / Unknown Venipuncture / Unknown 10/27/2017 5:22 AM DIRECTOR OF SUSTAINABILITY 10/27/2017 5:28 AM DIRECTOR OF SUSTAINABILITY Kwame Dinero MD LAB - CHEMISTRY NICOLETTE [facility] Organization Address City/State/ZIP Co de Phone Number [facility] [address] [place] [address] from Last 3 Months or Most Recently Relevant to Health Maintenance Advance Directives Documents on File Type Date Recorded Patient Hypo Dipper Expl anation Adv Directive/Living Will/POA 03/30/2015 10:06 PM * Full Code (Latest Code Status on File) Date Activated Date Inactivated Comments 02/04/2017 4:12 PM 02/06/2017 7:26 PM * Full Code Date Activated Date Inactivated Comments 03/24/2015 6:38 PM 03/29/2015 6:16 PM * FULL RESUSCITATION Date Activated Date Inactivated Comments 08/30/2012 11:02 PM 09/01/2012 1:09 PM * FULL RESUSCITATION Date Activated Date Inactivated Comments 08/28/2012 2:29 PM 08/30/2012 2:35 PM Care Teams Supervisor Soldering Relationship Specialty Start Date End Date Luz Tobias APRN-ANGELLA [address] [id number] PCP - General Nurse Practitioner 02/04/17 Melissa Herman, RN Medical Physiologist 03/25/15
--- OUTSIDE RECORDS SUMMARY | 2024-10-02 18:11 | XMS_ITS | Patient Health Summary ---
Author Organization [facility] Address [address] [place] [address] Care Team Providers Care Glass [employer] Blanket Machine Feeder Name Role Phone Melissa Herman RN Unavailable [phone] Luz Tobias APRN-[employer] Primary Care Provider + Note from [facility],non-owned Affiliates and Associated Physician Practices is amultiple site organization consisting of ambulatory clinics and hospital sitesin [place], [place], [place] and [place]. This disclosure is being madepursuant to the Care Everywhere program and may not contain all information available regarding this patient. Last updated 18.[facility] Allergies * Codeine(Other) -High Criticality * Penicillins(Other) -Medium Criticality Medications * Be aware that medications may not be up to date on this document. Alwaysverify current medications with the patient. * multivitamin daily (THERAGRAN) tablet Take 1 Tab by mouth daily with food. * Calcium-Vitamin D-Vitamin K (CHEWABLE CALCIUM PO) Take by mouth once daily. * Cyanocobalamin (B-12 COMPLIANCE INJECTION) 1000 MCG/ML 1,000 mcg by Injection route every 60 days * acetaminophen (TYLENOL) 325 MG tablet Take 325 mg by mouth every 4 hours as needed for Pain Maximum allowable Acetaminophen amount = 4 Grams (4000 mg) / 24 hours. * miSOPROStol (CYTOTEC) 200 MCG tablet(Started 10/27/2017) Take 1 tablet by mouth 2 times daily * pantoprazole EC (PROTONIX) 40 MG tablet(Started 10/27/2017) Take 1 tablet by mouth once daily 3 refills remaining * sucralfate (CARAFATE) 1 GM/10ML suspension(Started 10/27/2017) Take 10 mL by mouth 4 times daily 2 refills remaining * lisinopril (PRINIVIL; ZESTRIL) 20 MG tablet(Started 12/17/2017) Take 20 mg by mouth once daily Active Problems Problem Noted Date Diagnosed Date [...] Mass Index 31.58 05/03/2018 11:21 AM CDT Procedures * ESOPHAGOGASTRODUODENOSCOPY (EGD) DIAGNOSTIC(Performed 01/25/2018) * IRON + TRANSFERRIN PANEL(Performed 10/27/2017) * ZINC BLOOD(Performed 10/27/2017) * COPPER BLOOD(Performed 10/27/2017) * VITAMIN B12(Performed 10/27/2017) * VITAMIN B1(Performed 10/27/2017) * VITAMIN D 25-HYDROXY(Performed 10/27/2017) * BASIC METABOLIC PANEL (CALCIUM TOTAL)(Performed 10/27/2017) * ESOPHAGOGASTRODUODENOSCOPY (EGD) DIAGNOSTIC(Performed 10/26/2017) * COMPREHENSIVE METABOLIC PANEL(Performed 10/25/2017) * CBC W AUTO DIFFERENTIAL(Performed 10/25/2017) * ESOPHAGOGASTRODUODENOSCOPY (EGD) DIAGNOSTIC(Performed 02/22/2017) * COMPREHENSIVE METABOLIC PANEL(Performed 02/06/2017) Performed for Intestinal malabsorption, unspecified type (HCC) * CBC W AUTO DIFFERENTIAL(Performed 02/06/2017) Performed for Intestinal malabsorption, unspecified type (HCC) * CT ABDOMEN PELVIS W CONTRAST(Performed 02/05/2017) Performed for Abdominal pain, epigastric * PTH INTACT(Performed 02/05/2017) Performed for Abdominal pain, epigastric, Nausea and vomiting, Intestinal malabsorption, unspecified type (HCC), Marginal ulcer * VITAMIN B1(Performed 02/05/2017) Performed for Abdominal pain, epigastric, Nausea and vomiting, Intestinal malabsorption, unspecified type (HCC), Marginal ulcer * VITAMIN B12(Performed 02/05/2017) Performed for Abdominal pain, epigastric, Nausea and vomiting, Intestinal malabsorption, unspecified type (HCC), Marginal ulcer * VITAMIN D 25-HYDROXY(Performed 02/05/2017) Performed for Abdominal pain, epigastric, Nausea and vomiting, Intestinal malabsorption, unspecified type (HCC), Marginal ulcer * ZINC BLOOD(Performed 02/05/2017) Performed for Abdominal pain, epigastric, Nausea and vomiting, Intestinal malabsorption, unspecified type (HCC), Marginal ulcer * MAGNESIUM BLOOD(Performed 02/05/2017) Performed for Abdominal pain, epigastric, Nausea and vomiting, Intestinal malabsorption, unspecified type (HCC), Marginal ulcer * IRON BLOOD(Performed 02/05/2017) Performed for Abdominal pain, epigastric, Nausea and vomiting, Intestinal malabsorption, unspecified type (HCC), Marginal ulcer * FOLATE(Performed 02/05/2017) Performed for Abdominal pain, epigastric, Nausea and vomiting, Intestinal malabsorption, unspecified type (HCC), Marginal ulcer * FERRITIN(Performed 02/05/2017) Performed for Abdominal pain, epigastric, Nausea and vomiting, Intestinal malabsorption, unspecified type (HCC), Marginal ulcer * COPPER BLOOD(Performed 02/05/2017) Performed for Abdominal pain, epigastric, Nausea and vomiting, Intestinal malabsorption, unspecified type (HCC), Marginal ulcer * CBC W AUTO DIFFERENTIAL(Performed 02/05/2017) Performed for Nausea and vomiting * BASIC METABOLIC PANEL (CALCIUM TOTAL)(Performed 02/05/2017) Performed for Nausea and vomiting * TROPONIN I(Performed 02/04/2017) * LACTATE FLACO POC NOTIFICATION(Performed 02/04/2017) * TROPONIN I(Performed 02/04/2017) * URINE MICROSCOPIC ONLY REFLEX TO CULTURE(Performed 02/04/2017) * URINALYSIS REFLEX MICROSCOPIC REFLEX CULTURE(Performed 02/04/2017) * LIPASE BLOOD(Performed 02/04/2017) Performed for Nausea and vomiting * TROPONIN I(Performed 02/04/2017) * COMPREHENSIVE METABOLIC PANEL(Performed 02/04/2017) * CBC W AUTO DIFFERENTIAL(Performed 02/04/2017) * EKG 12-LEAD(Performed 02/04/2017) Performed for Abdominal pain, epigastric * ESOPHAGOGASTRODUODENOSCOPY (EGD) DIAGNOSTIC(Performed 10/05/2016) * ESOPHAGOGASTRODUODENOSCOPY (EGD) DIAGNOSTIC(Performed 08/18/2016) * LAB RESULTS ORDER(Performed 09/18/2015) * GLUCOSE - POINT OF CARE(Performed 03/27/2015) * GLUCOSE - POINT OF CARE(Performed 03/27/2015) * GLUCOSE - POINT OF CARE(Performed 03/26/2015) * GLUCOSE - POINT OF CARE(Performed 03/26/2015) * GLUCOSE - POINT OF CARE(Performed 03/26/2015) * VAS LEFT VENOUS DUPLEX LE(Performed 03/26/2015) Performed for Preop examination, Complications of gastric bypass surgery, Marginal ulcer * GLUCOSE - POINT OF CARE(Performed 03/26/2015) * BASIC METABOLIC PANEL (CALCIUM TOTAL)(Performed 03/26/2015) * CBC W AUTO DIFFERENTIAL(Performed 03/26/2015) * GLUCOSE - POINT OF CARE(Performed 03/25/2015) * GLUCOSE - POINT OF CARE(Performed 03/25/2015) * GLUCOSE - POINT OF CARE(Performed 03/25/2015) * FL FLUORO UPPER GI TRACT + KUB(Performed 03/25/2015) Performed for Complications of gastric bypass surgery, Marginal ulcer * GLUCOSE - POINT OF CARE(Performed 03/25/2015) * VITAMIN D 25-HYDROXY(Performed 03/25/2015) * BASIC METABOLIC PANEL (CALCIUM TOTAL)(Performed 03/25/2015) * CBC W AUTO DIFFERENTIAL(Performed 03/25/2015) * GLUCOSE - POINT OF CARE(Performed 03/24/2015) * LAPAROSCOPIC REVISION GASTRIC BYPASS/ADA-EN-Y(Performed 03/24/2015) 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, perforation, or obstruction * EKG 12-LEAD(Performed 03/24/2015) Performed for Preop examination * ESOPHAGOGASTRODUODENOSCOPY (EGD) DIAGNOSTIC(Performed 03/18/2015) Performed for Gastrojejunal ulcer, unspecified as acute or chronic, without mention of hemorrhage, perforation, or obstruction, Chronic gastric ulcer without mention of hemorrhage, perforation, without mention of obstruction * GASTRIN(Performed 01/21/2015) Performed for Marginal ulcer, Chronic gastric ulcer * ESOPHAGOGASTRODUODENOSCOPY (EGD) DIAGNOSTIC(Performed 12/03/2014) Performed for Gastrojejunal ulcer, unspecified as acute or chronic, without mention of hemorrhage, perforation, or obstruction * ESOPHAGOGASTRODUODENOSCOPY (EGD) DIAGNOSTIC(Performed 08/27/2014) Performed for Gastric ulcer, unspecified as acute or chronic, without mention of hemorrhage, perforation, or obstruction, Abdominal Pain, Left Upper Quadrant, Flatulence, eructation, and gas pain * LAB RESULTS ORDER(Performed 08/21/2014) * ESOPHAGOGASTRODUODENOSCOPY (EGD) DIAGNOSTIC(Performed 05/28/2014) Performed for Gastrojejunal ulcer, unspecified as acute or chronic, without mention of hemorrhage, perforation, or obstruction * HELICOBACTER PYLORI UREASE (STL)(Performed 05/28/2014) * LAPAROSCOPY DIAGNOSTIC(Performed 03/31/2014) Performed for Bloating, Abdominal pain, PUD (peptic ulcer disease) * ESOPHAGOGASTRODUODENOSCOPY (EGD) DIAGNOSTIC(Performed 03/31/2014) Performed for Bloating, Abdominal pain, PUD (peptic ulcer disease) * EKG 12-LEAD(Performed 03/31/2014) Performed for Preop examination * ESOPHAGOGASTRODUODENOSCOPY (EGD) DIAGNOSTIC(Performed 01/08/2014) Performed for Abdominal Pain, Epigastric * PATHOLOGY TISSUE EXAM (STL)(Performed 01/08/2014) Performed for GERD (gastroesophageal reflux disease), Abdominal pain, generalized * CBC W AUTO DIFFERENTIAL(Performed 02/19/2013) * PTH INTACT(Performed 02/19/2013) * FERRITIN(Performed 02/19/2013) * ZINC BLOOD(Performed 02/19/2013) * MAGNESIUM BLOOD(Performed 02/19/2013) * VITAMIN B12(Performed 02/19/2013) * IRON BLOOD(Performed 02/19/2013) * VITAMIN B1(Performed 02/19/2013) * VITAMIN D 25-HYDROXY(Performed 02/19/2013) * FOLATE RBC(Performed 02/19/2013) * COMPREHENSIVE METABOLIC PANEL(Performed 02/19/2013) * GLUCOSE - POINT OF CARE(Performed 09/01/2012) * GLUCOSE - POINT OF CARE(Performed 09/01/2012) * BASIC METABOLIC PANEL (CALCIUM TOTAL)(Performed 09/01/2012) * CBC W AUTO DIFFERENTIAL(Performed 09/01/2012) * GLUCOSE - POINT OF CARE(Performed 08/31/2012) * GLUCOSE - POINT OF CARE(Performed 08/31/2012) * C DIFFICILE GDH AG + TOXIN A+B(Performed 08/31/2012) * GLUCOSE - POINT OF CARE(Performed 08/31/2012) * BASIC METABOLIC PANEL (CALCIUM TOTAL)(Performed 08/31/2012) * CBC W AUTO DIFFERENTIAL(Performed 08/31/2012) * GLUCOSE - POINT OF CARE(Performed 08/30/2012) * BASIC METABOLIC PANEL (CALCIUM TOTAL)(Performed 08/30/2012) * CBC W AUTO DIFFERENTIAL(Performed 08/30/2012) * GLUCOSE - POINT OF CARE(Performed 08/30/2012) * BASIC METABOLIC PANEL (CALCIUM TOTAL)(Performed 08/29/2012) * GLUCOSE - POINT OF CARE(Performed 08/29/2012) * FL FLUORO UPPER GI TRACT + KUB(Performed 08/29/2012) Performed for Gastric bypass status for obesity * GLUCOSE - POINT OF CARE(Performed 08/29/2012) * BASIC METABOLIC PANEL (CALCIUM TOTAL)(Performed 08/29/2012) * CBC W AUTO DIFFERENTIAL(Performed 08/29/2012) * GLUCOSE - POINT OF CARE(Performed 08/29/2012) * GLUCOSE - POINT OF CARE(Performed 08/28/2012) * GLUCOSE - POINT OF CARE(Performed 08/28/2012) * GLUCOSE - POINT OF CARE(Performed 08/28/2012) * POTASSIUM BLOOD(Performed 08/28/2012) * VITAMIN B12(Performed 08/07/2012) Performed for Preoperative examination, unspecified * VITAMIN B1(Performed 08/07/2012) Performed for Preoperative examination, unspecified * VITAMIN D 25-HYDROXY(Performed 08/07/2012) Performed for Preoperative examination, unspecified * COMPREHENSIVE METABOLIC PANEL(Performed 08/07/2012) Performed for Preoperative examination, unspecified * CBC W AUTO DIFFERENTIAL(Performed 08/07/2012) Performed for Preoperative examination, unspecified * EKG 12-LEAD(Performed 08/07/2012) Performed for Preoperative examination, unspecified * GROSS + MICRO EXAM(Performed 10/05/2005) Results * (ABNORMAL) ZINC BLOOD (10/27/2017 12:36 PM SHEET METAL TECHNICIAN) Only the most recent of3 resultswithin the time period is included. [facility] Zinc, Plasma or Serum 52(L) 56 - 134 ug/dL 10/31/2017 3:36 AM SHEET METAL TECHNICIAN [facility] ([facility]) Comment:Detection Limit = 5 Blood BLOOD SPECIMEN / Unknown Venipuncture / Unknown 10/27/2017 12:36 PM SHEET METAL TECHNICIAN 10/27/2017 12:51 PM SHEET METAL TECHNICIAN Narrative [facility] ([facility]) - 10/31/2017 3:36 AM SHEET METAL TECHNICIAN Performed at: ??01 - [address] ??[id number] Brim Molder: Arthur Page MD, Phone: ??[phone] Justice Ly MD LAB - CHEMISTRY [place] LOW [facility]) [address] [place] [address] * VITAMIN B1 (10/27/2017 12:36 PM SHEET METAL TECHNICIAN) Only the most recent of4 resultswithin the time period is included. [facility] Vitamin B1 Whole Blood 100.9 66.5 - 200.0 nmol/L 10/31/2017 3:36 AM SHEET METAL TECHNICIAN [facility] ([facility]) Comment: This test was developed and its performance characteristics determined by [facility]. It has not been cleared or approved by the Food and Drug Administration. Blood BLOOD SPECIMEN / Unknown Venipuncture / Unknown 10/27/2017 12:36 PM SHEET METAL TECHNICIAN 10/27/2017 12:51 PM SHEET METAL TECHNICIAN Narrative [facility] ([facility]) - 10/31/2017 3:36 AM SHEET METAL TECHNICIAN Performed at: ??01 - [facility] ??[id number] Brim Molder: Arthur Page MD, Phone: ??[phone] Justice Ly MD LAB - CHEMISTRY [place]ICOLETTE LOW Performing Organization Address [facility] de Phone Number [facility]) [address] [place] [address] * COPPER BLOOD (10/27/2017 12:36 PM SHEET METAL TECHNICIAN) Only the most recent of2 resultswithin the time period is included. Copper 113 72 - 166 ug/dL 10/31/2017 3:36 AM SHEET METAL TECHNICIAN [facility] ([facility]) Comment:Detection Limit = 5 Blood BLOOD SPECIMEN / Unknown Venipuncture / Unknown 10/27/2017 12:36 PM SHEET METAL TECHNICIAN 10/27/2017 12:51 PM SHEET METAL TECHNICIAN Narrative [facility] ([facility]) - 10/31/2017 3:36 AM SHEET METAL TECHNICIAN Performed at: ??01 - [facility] [address] ??[id number] Brim Molder: Arthur Page MD, Phone: ??[phone] Justice Ly MD LAB - CHEMISTRY [place]ICOLETTE LOW Performing Organization Address [facility] de Phone Number [facility]) [address] [place] [address] * VITAMIN D 25-HYDROXY (10/27/2017 12:36 PM SHEET METAL TECHNICIAN) Only the most recent of5 resultswithin the time period is included. Vitamin D, 25 Hydroxy 68.16 30 - 100 ng/mL 10/28/2017 5:54 PM SHEET METAL TECHNICIAN [facility] Blood BLOOD SPECIMEN / Unknown Venipuncture / Unknown 10/27/2017 12:36 PM SHEET METAL TECHNICIAN 10/27/2017 12:51 PM SHEET METAL TECHNICIAN Narrative [facility] - 10/28/2017 5:54 PM SHEET METAL TECHNICIAN Vitamin D Status: ?Deficiency ? <20 ? ng/mL ?Insufficiency ?? 20-30 ??ng/mL ?Sufficiency ? 30-100 ng/mL ?Toxicity ? >100 ?ng/mL Justice Ly MD LAB - CHEMISTRY NICOLETTE LOW Performing Organization Address City/[facility]/ZIP Co de Phone Number [facility] [address] [place] [address] * VITAMIN B12 (10/27/2017 12:36 PM SHEET METAL TECHNICIAN) Only the most recent of4 resultswithin the time period is included. Vitamin B12 781 211 - 911 pg/mL 10/27/2017 1:39 PM SHEET METAL TECHNICIAN [facility] Blood BLOOD SPECIMEN / Unknown Venipuncture / Unknown 10/27/2017 12:36 PM SHEET METAL TECHNICIAN 10/27/2017 12:51 PM SHEET METAL TECHNICIAN Justice Ly MD LAB - CHEMISTRY NICOLETTE LOW Performing Organization Address [facility] de Phone Number [facility] [address] [place] [address] * IRON + TRANSFERRIN PANEL (10/27/2017 12:36 PM SHEET METAL TECHNICIAN) Iron 96 50 - 170 ug/dL 10/27/2017 1:17 PM SHEET METAL TECHNICIAN [facility] Transferrin 261 250 - 380 mg/dL 10/27/2017 1:17 PM SHEET METAL TECHNICIAN [facility] TIBC Calculated 326 240 - 450 mg/dL 10/27/2017 1:17 PM SHEET METAL TECHNICIAN [facility] Iron Saturation % 29 20 - 50 % 10/27/2017 1:17 PM SHEET METAL TECHNICIAN [facility] Blood BLOOD SPECIMEN / Unknown Venipuncture / Unknown 10/27/2017 12:36 PM SHEET METAL TECHNICIAN 10/27/2017 12:51 PM SHEET METAL TECHNICIAN Justice Ly MD LAB - CHEMISTRY NICOLETTE LOW Performing Organization Address [facility] de Phone Number [facility] [address] [place] [address] * (ABNORMAL) BASIC METABOLIC PANEL (CALCIUM TOTAL) (10/27/2017 5:22 AM SHEET METAL TECHNICIAN) Only the most recent of9 resultswithin the time period is included. Pathologist [facility] Glucose 84 74 - 106 mg/dL 10/27/2017 5:52 AM [facility] Sodium 140 136 - 145 mmol/L 10/27/2017 5:52 AM [facility] Potassium 3.4(L) 3.5 - 5.1 mmol/L 10/27/2017 5:52 AM [facility] Chloride 106 98 - 107 mmol/L 10/27/2017 5:52 AM [facility] CO2 29 22 - 31 mmol/L 10/27/2017 5:52 AM [facility] Calcium 9.1 8.5 - 10.1 mg/dL 10/27/2017 5:52 AM [facility] Anion Gap 5(L) 8 - 16 mmol/L 10/27/2017 5:52 AM [facility] BUN 20 7 - 21 mg/dL 10/27/2017 5:52 AM [facility] Creatinine 0.75 0.50 - 1.30 mg/dL 10/27/2017 5:52 AM [facility] eGFR by MDRD >60 mL/min/1.7 3m2 10/27/2017 5:52 AM [facility] eGFR by MDRD >60 mL/min/1.7 3m2 10/27/2017 5:52 AM [facility] Blood BLOOD SPECIMEN / Unknown Venipuncture / Unknown 10/27/2017 5:22 AM SHEET METAL TECHNICIAN 10/27/2017 5:28 AM [facility] Kwame Dinero MD LAB - CHEMISTRY NICOLETT[place] LOW [facility] Organization Address City/State/ZIP Co de Phone Number [facility] [address] [place] [address] * CBC W AUTO DIFFERENTIAL (10/25/2017 5:44 PM SHEET METAL TECHNICIAN) Only the most recent of12 resultswithin the time period is included. Pathologist [facility] WBC 4.7 4.4 - 10.7 x10E9/L 10/25/2017 5:50 PM SHEET METAL TECHNICIAN [facility] WBC Corrected x10E9/L 10/25/2017 5:50 PM SHEET METAL TECHNICIAN [facility] RBC 4.37 3.80 - 5.20 x10E12/L 10/25/2017 5:50 PM SHEET METAL TECHNICIAN [facility] Hemoglobin 12.5 12.0 - 15.6 gm/dL 10/25/2017 5:50 PM SHEET METAL TECHNICIAN [facility] Hematocrit 39.6 35.9 - 45.5 % 10/25/2017 5:50 PM [facility] MCV 90.6 80.7 - 98.3 fl 10/25/2017 5:50 PM SHEET METAL TECHNICIAN [facility] MCH 28.6 26.7 - 34.0 pg 10/25/2017 5:50 PM SHEET METAL TECHNICIAN [facility] MCHC 31.6 30.8 - 35.9 gm/dL 10/25/2017 5:50 PM [facility] Platelet Count 215 153 - 416 x10E9/L 10/25/2017 5:50 PM [facility] RDW-CV 14.4 12.1 - 14.9 % 10/25/2017 5:50 PM [facility] MPV 9.6 9.4 - 12.9 fl 10/25/2017 5:50 PM [facility] Neutrophils % 55.6 44.0 - 73.0 % 10/25/2017 5:50 PM [facility] Lymphocytes % 33.6 20.0 - 43.0 % 10/25/2017 5:50 PM [facility] Monocytes % 7.0 5.0 - 13.0 % 10/25/2017 5:50 PM [facility] Eosinophils % 2.5 0.0 - 6.0 % 10/25/2017 5:50 PM [facility] Basophils % 1.1 0.0 - 2.0 % 10/25/2017 5:50 PM SHEET METAL TECHNICIAN [facility] Immature Granulocytes 0.2 0 - 1 % 10/25/2017 5:50 PM SHEET METAL TECHNICIAN [facility] Neutrophil Absolute 2.63 2.01 - 7.14 x10E9/L 10/25/2017 5:50 PM [facility] Lymphocytes Absolute 1.59 1.07 - 3.94 x10E9/L 10/25/2017 5:50 PM SHEET METAL TECHNICIAN [facility] Monocytes Absolute 0.33 0.26 - 1.07 x10E9/L 10/25/2017 5:50 PM [facility] Eosinophils Absolute 0.12 0 - 0.47 x10E9/L 10/25/2017 5:50 PM [facility] Basophils Absolute 0.05 0 - 0.08 x10E9/L 10/25/2017 5:50 PM [facility] Immature Granulocytes Absolute 0.01 0.00 - 0.06 x10E9/L 10/25/2017 5:50 PM [facility] nRBC Auto 0 /100 WBC 10/25/2017 5:50 PM [facility] Blood BLOOD SPECIMEN / Unknown Venipuncture / Unknown 10/25/2017 5:44 PM SHEET METAL TECHNICIAN 10/25/2017 5:47 PM SHEET METAL TECHNICIAN Bessy Villa APRN-[employer] LAB - HEMATO LOGY ORDERABLES [facility] [address] [place] [address] * (ABNORMAL) COMPREHENSIVE METABOLIC PANEL (10/25/2017 5:44 PM SHEET METAL TECHNICIAN) Only the most recent of5 resultswithin the time period is included. Glucose 109(H) 74 - 106 mg/dL 10/25/2017 6:10 PM [facility] Sodium 140 136 - 145 mmol/L 10/25/2017 6:10 PM [facility] Potassium 3.3(L) 3.5 - 5.1 mmol/L 10/25/2017 6:10 PM [facility] Chloride 108(H) 98 - 107 mmol/L 10/25/2017 6:10 PM [facility] CO2 24 22 - 31 mmol/L 10/25/2017 6:10 PM [facility] Calcium 9.5 8.5 - 10.1 mg/dL 10/25/2017 6:10 PM [facility] Anion Gap 8 8 - 16 mmol/L 10/25/2017 6:10 PM [facility] BUN 14 7 - 21 mg/dL 10/25/2017 6:10 PM [facility] Creatinine 0.86 0.50 - 1.30 mg/dL 10/25/2017 6:10 PM [facility] Alkaline Phosphatase 120 38 - 126 U/L 10/25/2017 6:10 PM SHEET METAL TECHNICIAN [facility] ALT 13 13 - 61 U/L 10/25/2017 6:10 PM SHEET METAL TECHNICIAN [facility] AST 15 5 - 40 U/L 10/25/2017 6:10 PM SHEET METAL TECHNICIAN [facility] Protein Total 6.8 6.4 - 8.2 gm/dL 10/25/2017 6:10 PM SHEET METAL TECHNICIAN [facility] Albumin 2.9(L) 3.4 - 5.0 gm/dL 10/25/2017 6:10 PM SHEET METAL TECHNICIAN [facility] Bilirubin Total 0.2 0.2 - 1.0 mg/dL 10/25/2017 6:10 PM SHEET METAL TECHNICIAN [facility] eGFR by MDRD >60 mL/min/1.7 3m2 10/25/2017 6:10 PM SHEET METAL TECHNICIAN [facility] eGFR by MDRD >60 mL/min/1.7 3m2 10/25/2017 6:10 PM SHEET METAL TECHNICIAN [facility] Blood BLOOD SPECIMEN / Unknown Venipuncture / Unknown 10/25/2017 5:44 PM SHEET METAL TECHNICIAN 10/25/2017 5:47 PM SHEET METAL TECHNICIAN Bessy Villa [employer] LAB - CHEMIS TRY ORDERABLES [facility] [address] [place] [address] * CT ABDOMEN AND PELVIS WITH IV CONTRAST (02/05/2017 10:07 PM CDT) Anatomical Region Laterality Modality Abdomen, Pelvis Computed Tomogra phy 02/05/2017 10:1 6 PM CDT Impressions 02/05/2017 10:19 PM CDT Negative for obstruction. The common bile duct is enlarged but the gallbladder could not be identified suggesting this could be postcholecystectomy effect. Prior surgery as noted above. Narrative 02/05/2017 10:[address] ABDOMEN WITH CONTRAST CT PELVIS WITH CONTRAST INDICATION: Epigastric pain. ?? Pt is a 71 y.o. female who presents with recurrent abdominal pain. Pt of Dr. Ly. Recurrent marginal ulcers. Associated with: pain and dry heaves. Began several days ago. TECHNIQUE: The CT scan of the abdomen is carried out during and following administration of 80 mL Omnipaque 350 contrast IV. ??The images of the pelvis were performed with contrast. ??Sagittal and coronal reformatted images were performed with the CT scanner. ??This report was transcribed with a computerized speech recognition system. In an effort to expedite patient care, it has not been adjusted for typographical, grammatical or syntax problems by a trained medical biller/coder. For questions about the report, please contact the Radiology Department. FINDINGS: CT Abdomen: No free fluid can be seen in the upper abdomen. ??The liver, spleen, pancreas and kidneys appear normal in size. ??There are no dilated bowel loops in the upper abdomen. ??Surgical staple line is noted in the left upper abdomen consistent with bariatric surgery. ??The gallbladder cannot be identified. ??Common bile duct is enlarged, measuring up to 12 mm in diameter. ??Low CT density collection is noted in the kidneys which could be cysts but cannot be fully evaluated on this single phase examination. ??The patient received oral contrast and it has progressed into the transverse colon. CT Pelvis: No ??free fluid can be seen in the pelvis. ??The bladder is smooth in outline but is not filled with the IV contrast material on this limited single phase examination. ??There are no dilated bowel loops in the pelvis. ??The appendix cannot be from adjacent structures. Stoma pelvis is reduced due to streak artifacts from the metal hardware the left hip. ??Advanced facet joint arthritis is noted in the lower lumbar spine. Procedure Note Andre Sanchez MD - 02/05/[address] WITH [address] PELVIS WITH CONTRAST INDICATION: Epigastric pain. Pt is a 71 y.o. female who presents with recurrent abdominal pain. Pt of Dr. Ly. Recurrent marginal ulcers. Associated with: pain and dry heaves. Began several days ago. TECHNIQUE: The CT scan of the abdomen is carried out during and following administration of 80 mL Omnipaque 350 contrast IV. The images of the pelvis were performed with contrast. Sagittal and coronal reformatted images were performed with the CT scanner. This report was transcribed with a computerized speech recognition system. In an effort to expedite patient care, it has not been adjusted for typographical, grammatical or syntax problems by a trained medical biller/coder. For questions about the report, please contact the Radiology Department. FINDINGS: CT Abdomen: No free fluid can be seen in the upper abdomen. The liver, spleen, pancreas and kidneys appear normal in size. There are no dilated bowel loops in the upper abdomen. Surgical staple line is noted in the left upper abdomen consistent with bariatric surgery. The gallbladder cannot be identified. Common bile duct is enlarged, measuring up to 12 mm in diameter. Low CT density collection is noted in the kidneys which could be cysts but cannot be fully evaluated on this single phase examination. The patient received oral contrast and it has progressed into the transverse colon. CT Pelvis: No free fluid can be seen in the pelvis. The bladder is smooth in outline but is not filled with the IV contrast material on this limited single phase examination. There are no dilated bowel loops in the pelvis. The appendix cannot be from adjacent structures. Stoma pelvis is reduced due to streak artifacts from the metal hardware the left hip. Advanced facet joint arthritis is noted in the lower lumbar spine. IMPRESSION Negative for obstruction. The common bile duct is enlarged but the gallbladder could not be identified suggesting this could be postcholecystectomy effect. Prior surgery as noted above. Froy Barksdale MD CT ORDERABLES * (ABNORMAL) PTH INTACT (02/05/2017 11:36 AM CDT) Only the most recent of2 resultswithin the time period is included. Pathologist [facility] PTH Intact 126(H) 14 - 72 pg/mL 02/05/2017 12:24 PM CDT [facility] Calcium 9.0 8.5 - 10.1 mg/dL 02/05/2017 12:24 PM CDT [facility] Blood BLOOD SPECIMEN / Unknown 02/05/2017 11:36 AM CDT 02/05/2017 11:42 AM CDT Froy Barksdale MD LAB - CHEMISTRY NICOLETTE LOW [facility] Organization Address City/State/ZIP Co de Phone Number [facility] [address] [place] [address] * MAGNESIUM BLOOD (02/05/2017 11:36 AM CDT) Only the most recent of2 resultswithin the time period is included. Pathologist [facility] Magnesium 2.0 1.6 - 2.6 mg/dL 02/05/2017 11:53 AM CDT [facility] Blood BLOOD SPECIMEN / Unknown 02/05/2017 11:36 AM CDT 02/05/2017 11:41 AM CDT Froy Barksdale MD LAB - CHEMISTRY NICOLETTE LOW Performing Organization Address [facility] de Phone Number [facility] [address] [place] [address] * IRON BLOOD (02/05/2017 11:36 AM CDT) Only the most recent of2 resultswithin the time period is included. Iron 166 50 - 170 ug/dL 02/05/2017 12:20 PM CDT [facility] Blood BLOOD SPECIMEN / Unknown 02/05/2017 11:36 AM CDT 02/05/2017 11:41 AM CDT Froy Barksdale MD LAB - CHEMISTRY NICOLETTE LOW Performing Organization Address [facility] de Phone Number [facility] [id number] [place] [address] * FOLATE (02/05/2017 11:36 AM CDT) Folate 16.5 3.1 - 17.5 ng/mL 02/05/2017 12:16 PM CDT [facility] Blood BLOOD SPECIMEN / Unknown 02/05/2017 11:36 AM CDT 02/05/2017 11:42 AM CDT Froy Barksdale MD LAB - CHEMISTRY NICOLETTE LOW Performing Organization Address [facility] de Phone Number [facility] [address] [place] [address] * FERRITIN (02/05/2017 11:36 AM CDT) Only the most recent of2 resultswithin the time period is included. Ferritin 21 10 - 291 ng/mL 02/05/2017 12:20 PM CDT [facility] Blood BLOOD SPECIMEN / Unknown 02/05/2017 11:36 AM CDT 02/05/2017 11:41 AM CDT Froy Barksdale MD LAB - CHEMISTRY NICOLETTE LOW Performing Organization Address [facility] Co de Phone Number [facility] [address] [place] [address] * TROPONIN I (02/04/2017 8:06 PM CDT) Only the most recent of3 resultswithin the time period is included. Troponin I <0.015 0.000 - 0.049 ng/mL 02/04/2017 8:40 PM CDT [facility] Blood BLOOD SPECIMEN / Unknown 02/04/2017 8:06 PM CDT 02/04/2017 8:19 PM CDT Narrative [facility] - 02/04/2017 8:40 PM CDT Note: Diagnosis of myocardial infarction requires symptoms of ischemia or EKG changes of ischemia and Troponin I >99th of normal (0.05 ng/mL). Troponin should be drawn on initial assessment and 3-6 hours later as clinically indicated. Any condition resulting in myocardial cell damage can increase cardiac troponin levels. In addition to myocardial infarction, these include but are not limited to congestive heart failure (CHF), arrhythmia, myocarditis, and non-cardiac related causes such as pulmonary embolism, renal failure and sepsis. Beryl Oconnell MD LAB - CHEMISTRY NICOLETTE LOW Performing Organization Address [facility] de Phone Number [facility] [address] [place] [address] * LACTATE FLACO POC NOTIFICATION (02/04/2017 7:47 PM CDT) Pathologist [facility] Comment Notification Label Only - See Separate Report 02/04/2017 9:00 PM CDT [facility] Blood BLOOD SPECIMEN / Unknown 02/04/2017 7:47 PM CDT 02/04/2017 7:47 PM CDT Beryl Oconnell MD LAB - BLOOD GASES OR DERABLES Performing Organization Address [facility] Co de Phone Number [facility] [address] [place] [address] * (ABNORMAL) URINALYSIS MICROSCOPIC ONLY W/REFLEX CULTURE (02/04/2017 2:12 PM CDT) Epithelial Cell UA 20-50(A) 0-2, 2-5 # /hpf 02/04/2017 2:42 PM CDT [facility] Hyaline Casts 0-2 0 - 2 # /lpf 02/04/2017 2:42 PM CDT [facility] Calcium Oxalate Crystals 4+(A) None Seen 02/04/2017 2:42 PM CDT [facility] Urine URINE SPECIMEN OBTAINED BY CLEAN CATCH PROCEDURE / Unknown 02/04/2017 2:12 PM CDT 02/04/2017 2:12 PM CDT Beryl Oconnell MD LAB - URINALYSIS ORD ERABLES [facility] [address] [place] [address] * (ABNORMAL) URINALYSIS ROUTINE W/REFLEX TO CULTURE (02/04/2017 2:12 PM CDT) Color UA Yellow Straw, Yellow, Dark Yellow 02/04/2017 2:24 PM CDT [facility] Clarity UA Turbid 02/04/2017 2:24 PM CDT [facility] Specific Reeves UA >1.030(H) 1.005 - 1.030 02/04/2017 2:24 PM CDT [facility] pH UA 6.5 5.0 - 8.0 pH 02/04/2017 2:24 PM CDT [facility] Protein UA 2+(A) Negative 02/04/2017 2:24 PM CDT [facility] Blood UA Negative Negative 02/04/2017 2:24 PM CDT [facility] Leukocyte UA Negative Negative 02/04/2017 2:24 PM CDT [facility] Nitrite UA Negative Negative 02/04/2017 2:24 PM CDT [facility] Glucose UA Negative Negative 02/04/2017 2:24 PM CDT [facility] Ketone UA 2+(A) Negative 02/04/2017 2:24 PM CDT [facility] Bilirubin UA Negative Negative 02/04/2017 2:24 PM CDT [facility] Urobilinogen UA 1.0 0.1 - 1.0 EU/dL 02/04/2017 2:24 PM CDT [facility] WBC UA Auto 2-5 0-2, 2-5 # /hpf 02/04/2017 2:24 PM CDT [facility] RBC UA Auto Reflex to manual(A) 0-2, 2-5 # /hpf 02/04/2017 2:24 PM CDT [facility] Epithelial Cell UA Auto Reflex to manual(A) 0-2, 2-5 # /hpf 02/04/2017 2:24 PM CDT [facility] Bacteria UA Auto 1+(A) None seen 02/04/2017 2:24 PM CDT [facility] Hyaline Casts UA Auto Reflex to manual(A) 0 - 2 #/lpf 02/04/2017 2:24 PM CDT [facility] Reflex Status Culture not indicated 02/04/2017 2:24 PM CDT [facility] Urine URINE SPECIMEN OBTAINED BY CLEAN CATCH PROCEDURE / Unknown 02/04/2017 2:12 PM CDT 02/04/2017 2:12 PM CDT Beryl Oconnell MD LAB - URINALYSIS ORD ERABLES Performing Organization Address City/[facility]/ZIP Co de Phone Number [facility] [address] [place] [address] * LIPASE BLOOD (02/04/2017 12:50 PM CDT) Lipase 102 73 - 393 U/L 02/04/2017 3:54 PM CDT [facility] Blood BLOOD SPECIMEN / Unknown 02/04/2017 12:50 PM CDT 02/04/2017 12:57 PM CDT Beryl Oconnell MD LAB - CHEMISTRY ORDE RABLES Performing Organization Address [facility]/ZIP Co de Phone Number [facility] [address] [place], [place] [id number] * EKG 12-LEAD (02/04/2017 12:42 PM CDT) Only the most recent of4 resultswithin the time period is included. Ventricular Rate 62 BPM [facility] Atrial Rate 62 BPM [facility] P-R Interval 146 ms [facility] QRS Duration ms 86 ms [facility] Q-T Interval ms 416 ms [facility] QTC Calculation (Bezet) 422 ms [facility] Calculated P Bricelyn 51 degrees [facility] Calculated R Bricelyn -40 degrees [facility] Calculated T Bricelyn 50 degrees [facility] Interpretation EKG Normal sinus rhythm Possible Left atrial enlargement Left axis deviation Left ventricular hypertrophy Abnormal ECG Confirmed by MATT VERDUZCO MD ([id number]) on 02/05/2017 7:31:34 PM [facility] MUSE 02/04/2017 12:4 2 PM CDT 02/05/2017 7:31 PM CDT Beryl Oconnell MD ECG ORDERABLES Performing Organization Address City/[facility]/ZIP Co de Phone Number [facility] * LAB RESULTS ORDER (09/18/2015) Only the most recent of2 resultswithin the time period is included. Bessy Villa APRN-[employer] LAB - THERAP EUTIC DRUG MONITORING ORDERABLES * (ABNORMAL) GLUCOSE - POINT OF CARE (03/27/2015 12:45 PM CDT) Only the most recent of24 resultswithin the time period is included. Pathologist [facility] Glucose WB/POC 111(H) 70 - 106 mg/dL 03/27/2015 9:59 PM CDT [facility] Blood BLOOD SPECIMEN / Unknown 03/27/2015 12:45 PM CDT 03/27/2015 9:59 PM CDT Justice Ly MD LAB - POINT OF CARE ORDERABLES [facility] [address] [place] [address] * VAS LEFT VENOUS DUPLEX LE (03/26/2015 10:56 AM CDT) Anatomical Region Laterality Modality Lower Extremity, Upper Extremity Ultrasound 03/26/2015 10:4 4 AM CDT Narrative Procedure Note Ramo Clay MD - 03/27/[address] [address] Lower Extremity Venous Ultrasound Report Pat.Name: SHANIA CHO Pat.ID: [id number] St.Date: 03/26/2015 Exam Time: 10:44:00 AM Study Type:LE Venous Age: 10 1945,69Y Sex: FEMALE Sonogrphr: Hillary Roberson RVT, RDMS Pat. Stat.:Inpatient Room: 642 CPT - 4: 22185 Reason for Study:Preop examination, two hard knots in calf Procedures:Lower Extremity Venous - Left Visit ID: [id number] SUMMARY: There is no evidence of an acute deep or superficial venous thrombosis in either the right or left lower extremity. There are two solid soft tissue nodules are seen in the calf that are indeterminate. FINDINGS: Procedure: Venous duplex imaging of the left lower extremity was performed using color flow and spectral Doppler analysis. The contralateral common femoral vein was also examined. Study Quality: This study is of adequate technical quality. Lt Leg: All vessels seen appear patent and compressible. There was spontaneous and phasic flow seen in all the major veins of the left lower extremity. Appropriate augmentation with distal compression. No evidence of reflux with proximal compression. The right common femoral vein demonstrated phasic and spontaneous flow. Comments: Two superficial areas of shadowing in patient's calf that correlated with the hard bumps that she feels. Signed 03/27/2015 03:55 AM Ramo Clay MD Josue Gillespie MD VASCULAR LAB ORDERAB LES * FL FLUORO UPPER GI TRACT + KUB (03/25/2015 9:25 AM CDT) Only the most recent of2 resultswithin the time period is included. Anatomical Region Laterality Modality Abdomen Radiographic Rdaha ging 03/25/2015 9:33 AM CDT Impressions 03/25/2015 9:33 AM CDT No evidence of leak or obstruction status post revision gastrojejunostomy. Narrative 03/25/2015 9:33 AM CDT Fluoroscopic upper GI with KUB Indication: Morbid obesity, gastric surgery Findings: Multiple spot radiographs of the gastric remnant were obtained following ingestion of oral contrast media. There is no evidence of leak. There is prompt emptying into the small bowel. ??Total fluoro time is 37 seconds. Procedure Note Onur Cavazos MD - 03/25/2015 Fluoroscopic upper GI with KUB Indication: Morbid obesity, gastric surgery Findings: Multiple spot radiographs of the gastric remnant were obtained following ingestion of oral contrast media. There is no evidence of leak. There is prompt emptying into the small bowel. Total fluoro time is 37 seconds. IMPRESSION No evidence of leak or obstruction status post revision gastrojejunostomy. Justice Ly MD FLUOROSCOPY ORDERABL ES * GASTRIN (01/21/2015 11:21 AM CDT) Gastrin 26 0 - 115 pg/mL [facility] INSURANCE BILL Blood specimen (specimen) BLOOD SPECIMEN / Unknown 01/21/2015 11:21 AM CDT 01/21/2015 3:28 PM CDT Narrative Resulting Agency Comment [facility] [address] ??[facility] [id number] Justice Ly MD LAB - CHEMISTRY NICOLETTE LOW [facility] INSURANCE BILL * HELICOBACTER PYLORI UREASE (STL) (05/28/2014 8:54 AM CDT) Helicobacter pylori Urease Initial Negative Negative 05/29/2014 5:15 PM CDT [facility] Helicobacter pylori Urease Final Negative Negative 05/29/2014 5:15 PM CDT [facility] Microbiology GASTRIC ANTRAL BIOPSY SPECIMEN / Unknown 05/28/2014 8:54 AM CDT 05/28/2014 10:49 AM CDT Comment:799.9 Justice Ly MD LAB - MICROBIOLOGY O RDERABLES [facility] [address] [place] [address] * GROSS + MICRO EXAM (STL) (01/08/2014 8:15 AM CDT) Case Report Surgical Pathology Report ? Case: [id number] ? -------- Authorizing Provider: ??Justice Ly MD ?Ordering Provider: ?? Justice Ly MD ? Ordering Location: ? [facility] ?Collected: ? 01/08/2014 ??8:15 AM ? Pathologist: ? Ish Good MD ? Received: ?01/09/2014 ??7:54 AM ?Signed Out: ?01/10/2014 10:33 AM (Final) ? Specimens: ?? A) - Gastric Biopsy ? B) - Small Bowel Biopsy ? 01/10/2014 10:33 AM CDT [facility] Final Diagnosis 1. ??Gastric, biopsies: -- ??No pathologic diagnosis 2. ??Small bowel, biopsies: -- ??No pathologic diagnosis AB/vr 01/10/2014 10:33 AM CDT [facility] Clinical History COPY TO: Chapis Vásquez MD 01/10/2014 10:33 AM CDT [facility] Gross Description Received in formalin are two containers each labeled, Shania Cho. Container 1 is labeled, gastric biopsy. The container holds a single ramsey tissue fragment measuring 0.7 x 0.2 x 0.2 cm. The specimen is entirely submitted in a cassette labeled A1. Container 2 is labeled, small bowel biopsy. The container holds a single ramsey tissue fragment measuring 0.8 x 0.2 x 0.1 cm. The specimen is entirely submitted in cassette labeled B1. DYT/na 01/10/2014 10:33 AM CDT [facility] Microscopic Description The gastric biopsies show gastric antral-type mucosa. ??No significant inflammation is seen. ??There is no intestinal metaplasia or dysplasia. ??H. pylori organisms are not detected by immunohistochem istry. The small bowel biopsies show normal-appearin g small bowel with tall villi and no significant inflammation. AB/vr 01/10/2014 10:33 AM CDT [facility] Synoptic Report 01/10/2014 10:33 AM CDT [facility] Pathology/Cytology GASTRIC BIOPSY SPECIMEN / Unknown 01/08/2014 8:15 AM CDT 01/09/2014 7:54 AM CDT Miscellaneous samples (specimen) ENTEROTOMY OF SMALL BOWEL FOR BIOPSY / Unknown 01/08/2014 8:15 AM CDT 01/09/2014 7:54 AM CDT Justice Ly MD LAB - PATHOLOGY/CYTO LOGY ORDERABLES [facility] [address] [place] [address] * FOLATE RBC (02/19/2013 3:09 PM CDT) Folate Hemolysate 352.5 Not Estab. ng/mL [facility] INSURANCE BILL Folate RBC 801 499 - 1,504 ng/mL [facility] INSURANCE BILL 02/19/2013 3:09 PM CDT 02/19/2013 7:31 PM CDT Narrative [facility] INSURANCE BILL - 02/25/2013 8:06 PM CDT A courtesy copy of this report has been sent to [phone]. Resulting Agency Comment [facility] ??[facility] [phone] Bessy Villa APRN-[employer] LAB - CHEMIS TRY ORDERABLES [facility] INSURANCE BILL * CLOSTRIDIUM DIFFICILE GDH AG + TOXIN A+B (08/31/2012 8:05 AM SHEET METAL TECHNICIAN) GDH Antigen Negative Negative [facility] C difficile Toxin A + B Negative Negative [facility] Interpretation C difficile Negative for Toxigenic C.difficile [facility] Stool specimen (specimen) STOOL SPECIMEN / Unknown 08/31/2012 8:05 AM SHEET METAL TECHNICIAN 08/31/2012 8:16 AM SHEET METAL TECHNICIAN Narrative [facility] - 08/31/2012 8:37 PM SHEET METAL TECHNICIAN Performed By [facility] [place] Justice Ly MD LAB - MICROBIOLOGY O RDERABLES Performing Organization Address [facility] de Phone Number [facility] [address] [place] [address] * POTASSIUM BLOOD (08/28/2012 8:05 AM SHEET METAL TECHNICIAN) Potassium 3.6 3.5 - 5.1 mmol/L [facility] Blood specimen (specimen) BLOOD SPECIMEN / Unknown 08/28/2012 8:05 AM SHEET METAL TECHNICIAN 08/28/2012 8:12 AM SHEET METAL TECHNICIAN Justice Ly MD LAB - CHEMISTRY ORDJeannine LOW Performing Organization Address [facility] de Phone Number [facility] [address] [place] [address] * GROSS + MICRO EXAM (10/05/2005 1:28 PM SHEET METAL TECHNICIAN) Result CASE NUMBER [id number] Comment: ORDERING PHYSICIAN ??NGHIA SILVESTRE SPECIMEN TYPE ?Cyst Date ? 10/05/2005 Physician ?Rosa Isela, ??Oren Gross Description ? The specimen is received in a Formalin filled container labeled with the patient's name, Shania Cho, and synovial cyst, routine. ??It consists of multiple irregular light pink ramsey fragments of ligamentous tissue with irregular fragments of soft tissue with blue pink semi- translucent appearance. ??The entire specimen measurement in aggregate is 2 x 1.2 x 0.5 cm. ??The specimen is submitted into a single cassette. CN wilcox Microscopic Exam ? Microscopic examination reveals ligamentous tissue, fibrocollagenous adipose tissue fragments intermixed with a few bony spicules. ??Some of the fibrocollagenous fragments appear to be membranous type tissue without any overlying lining epithelium. ??Nerve fragments are not seen. Inflammation, granulomas or malignancy is not seen. SR/bk Diagnosis ? I. ?Soft tissue, L3, excision -- ?Changes suggestive of synovial cyst. -- ?No evidence of malignancy. SR/bk Pile Driving Nozzleman ? bk Pathologist ?Carmen Rosa M.D. [place]. ?10/06/2005 1031 <1> CPT code ? 51485 MISCELLANEOUS SAMPLES / Unknown 10/05/2005 1:28 PM SHEET METAL TECHNICIAN 10/05/2005 1:28 PM SHEET METAL TECHNICIAN Historical Provider MD LAB - PATHOLOGY/C YTOLOGY ORDERABLES Care Teams Glass Wool Blanket Machine Feeder Relationship Specialty Start Date End Date Luz Tobias APRN-[employer] [address] [place] [id number] PCP - General Nurse Practitioner 02/04/17 Melissa Herman, NATALIE Academic Dean 03/25/15
--- OUTSIDE RECORDS SUMMARY | 2024-10-02 18:11 | XMS_ITS | Referral Summary ---
Author Organization [facility] [address] Address [address] [place] [address] Care Team Providers Care Bilingual Secretary Name Role Phone Luz Tobias NP Primary Care Provider [phone] Allergies Active Allergy Reactions Criticality Noted Date [...] goiter 01/24/2014 Overview (12/15/2016): NONTOX MULTINODUL GOITER Social History Tobacco Use Types Packs/Day Years Used Date Smoking Tobacco: Never Smokeless Tobacco: Never Tobacco Cessation:Counseling Given: Not Answered Alcohol Use Standard Drinks/Week Comments Yes 2 (1 standard drink = 0.6 oz pur e alcohol) Comments Unknown Sex and Gender Information Value Date Recorded Sex Assigned at Not on file Legal Sex Female 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
--- OUTSIDE RECORDS SUMMARY | 2024-10-02 18:11 | XMS_ITS | Clinical Summary ---
Author Organization [facility] e[facility] Address [address] [place] [address] Care Team Providers Care Taping Machine Operator Name Role Phone Melissa Herman RN Unavailable [phone] Luz Tobias SPRING TIER-LOG TRUCK DRIVER Primary Care Provider + Source Comments [facility],non-owned Affiliates and Associated Physician Practices is amultiple site organization consisting of ambulatory clinics and hospital sitesin [place], [place], [place] and [place]. This disclosure is being madepursuant to the Care Everywhere program and may not contain all information available regarding this patient. Last updated 18.[facility] Allergies Active Allergy Reactions Criticality Noted Date [...] Mass Index 31.58 05/03/2018 11:21 AM CDT Plan of Treatment Health Maintenance Due Date Last Done Comments BONE DENSITY TESTING 1945 MEDICARE AWV ? 12 MONTHS 1945 HEPATITIS C SCREENING 06/29/1965 DTAP/TDAP/TD VACCINES (1 - Tdap) 1966 PNEUMOCOCCAL VACCINE 50+ (1 of 1 - PCV) 1997 ZOSTER VACCINE (1 of 2) 1997 SCREENING FOR DIABETES 10/27/2020 8, 10/25/2017, 02/06/2017, Additional history exists Respiratory Syncytial Virus (RSV) Vaccine Pt: or over 60 yrs (1 - 1-dose 75+ series) 2022 COVID-19 VACCINE ( - 2023- season) 2024 INFLUENZA VACCINE (#1) 2024 DEPRESSION SCREENING 09/10/2024 HEPATITIS B VACCINE Aged Out No longe r eligible based on patient's age to complete this topic HIB VACCINE Aged Out No longer eligi ble based on patient's age to complete this topic HPV VACCINE Aged Out No longer eligi ble based on patient's age to complete this topic MENINGOCOCCAL (Group B) VACCINE Aged Out No longer eligible based on patient's age to complete this topic MENINGOCOCCAL VACCINE Aged Out No baltazar juan carlos eligible based on patient's age to complete this topic Procedures Procedure Name Priority Date/Time Associated Diagnosis Comments BASIC METABOLIC PANEL (CALCIUM TOTAL) AM Draw 10/27/2017 5:22 AM BLAST FURNACE OPERATOR from Last 3 Months or Most Recently Relevant to Health Maintenance Results * (ABNORMAL) BASIC METABOLIC PANEL (CALCIUM TOTAL) (10/27/2017 5:22 AM BLAST FURNACE OPERATOR) Glucose 84 74 - 106 mg/dL 10/27/2017 5:52 AM [facility] Sodium 140 136 - 145 mmol/L 10/27/2017 5:52 AM [facility] Potassium 3.4(L) 3.5 - 5.1 mmol/L 10/27/2017 5:52 AM [facility] Chloride 106 98 - 107 mmol/L 10/27/2017 5:52 AM [facility] CO2 29 22 - 31 mmol/L 10/27/2017 5:52 AM [facility] Calcium 9.1 8.5 - 10.1 mg/dL 10/27/2017 5:52 AM [facility] Anion Gap 5(L) 8 - 16 mmol/L 10/27/2017 5:52 AM [facility] BUN 20 7 - 21 mg/dL 10/27/2017 5:52 AM [facility] Creatinine 0.75 0.50 - 1.30 mg/dL 10/27/2017 5:52 AM [facility] eGFR by MDRD >60 mL/min/1.7 3m2 10/27/2017 5:52 AM BLAST FURNACE OPERATOR [facility] eGFR by MDRD >60 mL/min/1.7 3m2 10/27/2017 5:52 AM BLAST FURNACE OPERATOR [facility] Blood BLOOD SPECIMEN / Unknown Venipuncture / Unknown 10/27/2017 5:22 AM BLAST FURNACE OPERATOR 10/27/2017 5:28 AM BLAST FURNACE OPERATOR Kwame Dinero MD [facility] - [facility] [address] [place] [address] from Last 3 Months or Most Recently Relevant to Health Maintenance Advance Directives Documents on File Type Date Recorded Patient Hydro Generation Manager Expl anation Adv Directive/Living Will/POA 03/30/2015 10:06 [...] 2:29 PM 08/30/2012 2:35 PM Care Teams Taping Machine Operator Relationship Specialty Start Date End Date Luz Tobias APRN-LOG TRUCK DRIVER [address] [id number] PCP - General Nurse Practitioner 02/04/17 Melissa Herman, RN Stem Mounter 03/25/15
--- OUTSIDE RECORDS SUMMARY | 2024-10-02 18:11 | XMS_ITS | Clinical Summary ---
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 Phone Isai Marin MD Primary Care Provider [phone] Allergies Active Allergy Reactions Criticality Noted Date Comments Codeine Other (see comments),Unknown High 06/17/2012 Other reaction(s): Other Vaginal Itching passed out Vaginal Itching passed out Penicillins Other (see comments),Unknown Medium 06/17/2012 Other reaction(s): Other Vaginal Infections after taking vaginal burning and itching Vaginal Infections after taking vaginal burning and itching Medications Medication Sig Dispensed Refills Start Date End Date Status cyanocobalamin (VITAMIN B-12) 1000 MCG/ML injection 12/17/2013 Active ergocalciferol (VITAMIN D-2) 62566 units capsule 1 weekly 06/29/2012 Active Multiple Vitamin (MULTIVITAMIN) capsule 12/17/2013 Ac tive lisinopril (PRINIVIL) 20 MG tablet Take 20 mg by mouth 1 (one) time each day 09/28/2021 Active pantoprazole (PROTONIX) 40 MG EC tablet Take 40 mg by mouth 1 (one) time each day 09/28/2021 Active miSOPROStol (CYTOTEC) 200 MCG tablet Take 200 mcg by mouth 2 (two) times a day 09/20/2021 Active acetaminophen (TYLENOL) 325 MG tablet Take 325 mg by mouth every 30 minutes as needed Active Active Problems Problem Noted Date Diagnosed Date Primary hyperparathyroidism 02/13/2022 Chronic kidney disease stage 3A 10/17/2021 COVID-19 08/02/2020 Vitamin D deficiency 01/24/2014 Overview (10/11/2021): VITAMIN D DEFICIENCY NOS Essential (primary) hypertension 04/08/2012 Other malaise and fatigue 04/08/2012 Overview (11/23/2018): Converted unresolved ICD9, potential mismatch. Type 2 diabetes mellitus without complication Immunizations Name Administration Dates Next Due Influenza Split High Dose Pr eservative Free IM 06/10/2016 Influenza TIV (IM) 04/16/2015,06/10/2013 Influenza, Injectable, Mdck, Preservative Free, Quadrivalt 06/19/2022 Influenza, Injectable, Quadrivalent 05/12,06/01/2020,06/03/2019,06/06,06/07/2017 Moderna Sars-cov-2 Vaccination 07/07/2021,2020,09/30/2020 Pfizer Sars-cov-2 Vaccination 05/24/2022 Pneumococcal Conjugate 13-Valent 11/06/2012 Pneumococcal Polysaccharide 05/19/2009 Zoster 06/04/2012 Social History Tobacco Use Types Packs/Day Years Used Date Smoking Tobacco: Never Smokeless Tobacco: Never Alcohol Use Standard Drinks/Week Comments Yes 5 (1 standard drink = 0.6 oz pur e alcohol) Sex and Gender Information Value Date Recorded Sex Assigned at Not on file Gender Identity Not on file Sexual Orientation Not on file Last Filed Vital Signs Vital Sign Reading Time Taken Comments Blood Pressure 124/78 08/16/2022 3:09 PM PHARMACOLOGY ASSOCIATE Pulse 72 08/16/2022 3:09 PM PHARMACOLOGY ASSOCIATE Temperature 36 ??C (96.8 ??F) 08/16/2022 3:09 PM PHARMACOLOGY ASSOCIATE Respiratory Rate - - Oxygen Saturation - - Inhaled Oxygen Concentration - - Weight 99.3 kg (219 lb) 08/16/2022 3:09 PM PHARMACOLOGY ASSOCIATE Height 162.6 cm (5' 4 ) 08/16/2022 3:09 PM PHARMACOLOGY ASSOCIATE Body Mass Index 37.59 08/16/2022 3:09 PM PHARMACOLOGY ASSOCIATE Plan of Treatment Health Maintenance Due Date Last Done Comments Diabetic Foot Exam 1955 Ophthalmology Exam 1955 Pneumococcal PPSV23/PCV13 65 + Years / High and Highest Risk (3 of 4 - PPSV23 or PCV20) 05/19/2014 11/06/2012, 05/19/2009 COVID-19 Vaccine (5 - 2022-2 4 season) 2024 05/24/2022, 07/07/2021, 10/31/2020, Additional history exists Influenza Vaccine (#1) 2024 , 04/16/2015, 06/10/2013 Care Teams Continuous Process 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
--- OUTSIDE RECORDS SUMMARY | 2024-10-02 18:11 | XMS_ITS | Clinical Summary ---
Author Organization [facility] Address Formerly [facility] 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 Active lisinopril 20 MG tablet Take 20 mg by mouth daily. 12/17/2017 Active misoprostol 200 MCG tablet Take 200 mcg by mouth daily. 10/27/2017 Active pantoprazole 40 MG tablet Take 40 mg by mouth daily. 10/27/2017 Active Active Problems Problem Noted Date Diagnosed Date Swelling of limb, left 06/27/2018 Family History Medical History Relation Comments Heart Disease Father Alzheimer's Disease Mother Hypertension Mother Relation Status Comments Father Mother Social History Tobacco Use Types Packs/Day Years Used Date Smoking Tobacco: Never Smokeless Tobacco: Current Alcohol Use Standard Drinks/Week Comments Yes 3.3 (1 standard drink = 0.6 oz p ure alcohol) Occasional Comments Unknown Sex and Gender Information Value Date Recorded Sex Assigned at Not on file Legal Sex Female 5:12 PM CDT Gender Identity Not on file Sexual Orientation Not on file Last Filed Vital Signs Vital Sign Reading Time Taken Comments Blood Pressure 124/70 06/26/2018 2:04 PM CDT Pulse 84 06/26/2018 2:04 PM CDT Temperature - - Respiratory Rate - - Oxygen Saturation - - Inhaled Oxygen Concentration - - Weight 85.7 kg (189 lb) 06/26/2018 2:04 PM CDT Height 162.6 cm (5' 4 ) 06/26/2018 2:04 PM CDT Body Mass Index 32.44 06/26/2018 2:04 PM CDT Plan of Treatment Health Maintenance Due Date Last Done Comments Hepatitis C 1963 DTaP, Tdap and Td Vaccines (1 - Tdap) 1966 Annual Medicare Wellness Visit 2012 Dexa Scan (General) 2012 Zoster Vaccines (2 of 3) 07/30/2012 06/04/2012 Pneumococcal Vaccine: 65+ Years (3 of 3 - PPSV23 or PCV20) 05/31/2020 05/31/2015, 11/06/2012, 05/19/2009 RSV Immunization or 60+ Years (1 - 1-dose 75+ series) 2022 COVID-19 Vaccine ( - season) 2024 Influenza Adult (#1) 2024 06/06/2018, 07/03/2017, 06/07/2017, Additional history exists Meningococcal Vaccine Aged Out No baltazar juan carlos eligible based on patient's age to complete this topic RSV Immunizations Under 20 Months Aged Out No longer eligible based on patient's age to complete this topic Insurance MEDICARE [facility] Care Teams 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
--- OUTSIDE RECORDS SUMMARY | 2024-10-02 18:11 | XMS_ITS | Data Portability ---
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 She states previous cortisone has helped tremendously years ago. We talked about treatment options we will start with a course of oral prednisone and shots into the wrist and basilar thumb joint she wanted to proceed therefore under sterile conditions I injected the patient's left wrist joint dorsally at the point of maximal tenderness as well as the basilar thumb joint with 2 cc of 0.25% bupivacaine and 10 mg of Kenalog each. The patient tolerated the procedure well. We will give it some time see how this works for her if her symptoms continue or worsen she will call me hopefully this will help calm down her situation. She voiced understanding and agrees above plan she will call for any further problems difficulties or questions. Not available 12/17/2023 10:44:11 02/07/2024 02/07/2024 The patient has a flare of pain due to primary osteoarthritis at the left basilar thumb joint and the left wrist joint we talked about treatment options today she has not taking any anti-inflammatori es I have recommended we start a course of Celebrex 100 mg b.i.d. see if this helps. She also wanted shot of cortisone we will give her injections both sides today because of her severe pain. Under sterile conditions I injected the patient's left thumb CMC joint and the dorsum of the left wrist into the carpal joints with 2 cc of 0.5% bupivacaine and 20 mg of Kenalog each for a total 2 injections. The patient tolerated the procedure well. She will give it a few days she how she does if she gets no relief she will call back if she is any further problems difficulties questions she will call she voiced understanding agrees above plan. Not available 02/07/2024 14:07:42 05/19/2024 05/19/2024 The patient has severe left thumb CMC arthrosis she also has degenerative joint disease in the wrist. At her request under sterile conditions I injected the patient's left thumb CMC joint as well as the ulnar carpal joint of the left wrist with 2 cc 0.5% bupivacaine and 20 mg of Kenalog each for a total of 2 injections she tolerated the procedures well. I will see her back as needed we can do this again in 3 months if necessary. She does take Celebrex she can continue with this we will give her refill if she calls in in the near future. She voiced understanding agrees above plan she will call for any further problems difficulties or questions. Not available 05/19/2024 10:14:29 Plan of Treatment Reminders Order Date Submit Date Provider Last Modified By Organization Details Last Modified Time Details Appointments None recorded. Lab rapid flu (A+B) 2023 024 sonia [address] [place], [place], [address], 10:29:17 rsv (respirator y syncytial virus), rapid, nasopharyng eal 2023 [facility] [address] [place], [place], [address], 10:29:15 Referral None recorded. Procedures injection/a spiration joint/bursa (PROC) - in office procedure, administere d by provider 2023 024 In-Office Order, Internal Use Only DO Not Attach Compendium DO Not Attach Compendium, Do Not Delete/merge, [id number] 10:35:26 injection/a spiration joint/bursa (PROC) 2023 024 [email or web address] In-Office Order, Internal Use Only DO Not Attach Compendium DO Not Attach Compendium, Do Not Delete/merge, [id number] 13:52:22 injection/a spiration joint/bursa (PROC) 2023 024 [email or web address] In-Office Order, Internal Use Only DO Not Attach Compendium DO Not Attach Compendium, Do Not Delete/merge, [id number] 4 13:52:22 injection/a spiration joint/bursa (PROC) 2023 024 [email or web address] In-Office Order, Internal Use Only DO Not Attach Compendium DO Not Attach Compendium, Do Not Delete/merge, [id number] 10:06:20 injection/a spiration joint/bursa (PROC) 2023 024 [email or web address] In-Office Order, Internal Use Only DO Not Attach Compendium DO Not Attach Compendium, Do Not Delete/merge, 4 09:38:11 Surgeries None recorded. Imaging XR, hand 2023 024 [email or web address] [place], [address] [facility] [address], [place], [address], 4 11:17:19 XR, chest, 2 view 2023 024 [email or web address] 2 [facility], [facility] , [place], [address], 4 08:46:50 Medication Orders Kenalog 10 mg/mL suspension for injection 2023 024 [email or web address] [facility], [address], [place], [address], 4 11:25:07 bupivacaine (PF) 0.25 % (2.5 mg/mL) injection solution [address] [facility], [address], [place], [address], 4 11:25:07 prednisone 10 mg tablets in a dose pack [email or web address] [address], [place], [address], 4 12:26:58 levofloxaci n 750 mg tablet 2023 024 [facility], [address], [place], [place], [address], 4 12:38:30 promethazin e-DM 6.25 mg-15 mg/5 mL oral syrup 2023 024 [facility], [address], [place], [place], [address], 4 12:39:06 Atrovent HFA 17 mcg/actuati on aerosol inhaler 2023 024 [email or web address] 200 [facility], [address], [place], [address], 4 12:39:38 bupivacaine HCl 0.5 % (5 mg/mL) injection solution [address] [facility], [address], [place], [address], 4 14:34:16 Kenalog 10 mg/mL suspension for injection [address] [facility], [address] [place], [address], 4 14:34:16 bupivacaine HCl 0.5 % (5 mg/mL) injection solution [address] [facility], [address] [place], [place], [address], 4 14:34:16 Kenalog 10 mg/mL suspension for injection [address] [facility], [address], [place], [address], 4 14:34:16 celecoxib 100 mg capsule [address] [facility], [address] [place], [place], [address], 4 14:34:16 bupivacaine HCl 0.5 % (5 mg/mL) injection solution [address] [place] [address] Pharmacy 48, [address], [place], [address], 4 11:14:21 Kenalog 10 mg/mL suspension for injection [address] [place] [address] Pharmacy 48, [address], [place], [place], [address], 4 11:14:21 bupivacaine HCl 0.5 % (5 mg/mL) injection solution [address] [place] [address] Pharmacy 4878, [address], [place], [address], 4 09:48:52 Kenalog 10 mg/mL suspension for injection [address] [place] [address] Pharmacy 4878, [address] [place], [address], 4 09:48:52 Patient TargetsNo targets recorded. Patient Instructions Encounter Date Encounter Id Patient Instructions Last Modified By Organization Details Last Modified Time 01/01/2024 [id number] Advised getting a Covid test [email or web address] Not available 01/09/2024 10:28:25 Reason for Referral None Reported. Results Created Date Observation Date Name Description Value Unit Range Abnormal Flag Note LastModifiedBy Organization Detail LastModifiedTime 01/01/20 24 01/01/2024 rsv (resp irato ry syncy tial virus ), rapid , nasop haryn geal RSV negati ve Not Available [address], [place], [address], 01/01/2024 12:48:45 01/01/20 24 01/01/2024 rapid flu (A+B) Flu A negati ve Not Available [address], [place], [address], 01/01/2024 12:48:38 01/01/20 24 01/01/2024 rapid flu (A+B) Flu B negati ve Not Available [address], [place], [address], 01/01/2024 12:48:38 12/17/19 24 XR, hand No observ ation record ed. [email or web address] [facility] [place] [address], [place], [address], 12/17/2023 10:47:27 01/01/20 24 01/01/2024 XR, chest , 2 view No observ ation record ed. [email or web address] [place] [address] [address] [facility], [place], [address], 05/20/2024 11:23:53 Result Notes None recorded. 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 06774872455 37909 Active 2020 Not Available [facility] 3 13:10:47 History of total knee arthropla sty 95390849317 05 Active 2020 Not Available [facility] 3 13:10:47 Pain in right sacroilia c joint 86992878584 598838 Active 2021 Not Available [facility] 3 13:10:47 Injury of hand 974289663 Completed Not Available [facility] 3 08:09:56 Abscess 773259180 Completed Not Available [facility] 3 08:09:56 Folliculi tis 73935301 Completed Not Available [facility] 3 08:09:56 Disorder of thyroid gland 50916727 Active Not Available [facility] 3 13:10:47 Acute sinusitis 23991618 Completed Not Available [facility] 3 08:09:56 History of artificia l joint 256832989 Active 2021 Not Available [facility] 3 13:10:47 Spinal stenosis of lumbar region 07414604 Active 2020 Not Available [facility] 3 13:10:47 Foot callus 400067248 Completed Not Available [facility] 3 08:09:56 Tooth disorder 528496000 Completed Not Available [facility] 3 08:09:57 Post-surg ical malabsorp tion 975915259 Active Not Available [facility] 3 13:10:47 Edema 167573578 Completed Not Available [facility] 3 08:09:57 Right upper quadrant pain 809964001 Completed Not Available [facility] 3 08:09:57 Vitamin D deficienc y 59923301 Active Not Available [facility] 3 13:10:47 Primary hyperpara thyroidis m 15901513 Active 2021 Not Available [facility] 3 13:10:47 Arthritis 4457184 Active 2021 Not Available [facility] 3 13:10:47 Disorder of vitamin B12 827001482 Active 2021 Not Available [facility] 3 13:10:47 Menorrhag ia 206581654 Completed Not Available [facility] 3 08:09:57 Disorder of gallbladd er 80213348 Active Not Available [facility] 3 13:10:47 Gastric ulcer 391651813 Active Not Available [facility] 3 13:10:47 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 Not Available [facility] 3 13:10:47 Vitamin B deficienc y 56670329 Active Not Available [facility] 3 13:10:47 Anxiety 87214061 Active Not Available [facility] 3 13:10:47 Upper respirato ry infection 50885946 Completed Not Available [facility] 3 08:09:58 Pain in wrist 03356994 Completed Not Available [facility] 3 08:09:58 Cyst of Bartholin 's gland duct 14460096 Active Not Available [facility] 3 13:10:47 Diarrhea 10081358 Completed Not Available [facility] 3 08:09:58 Osteoporo sis 92062216 Active 2019 Not Available [facility] 3 13:10:47 Nasal congestio n 64380914 Completed Not Available [facility] 3 08:09:58 Decreased renal function 05666022 Active 2021 Not Available [facility] 3 13:10:47 Candidias is 44273069 Active 2016 Not Available [facility] 3 13:10:47 Cardiomeg vladislav 2602421 Active 2019 Not Available [facility] 3 13:10:47 Perniciou s anemia 18092689 Active Not Available [facility] 3 13:10:47 COVID-19 011857570 Active 2019 Not Available [facility] 3 13:10:47 Cobalamin deficienc y 464643325 Active 03/02/ 2023 Not Available [facility] 3 13:10:47 Pain in right hip joint 65675378862 9102 Active 2022 Not Available [facility] 3 13:10:47 Essential hypertens ion 93857029 Active 2022 Not Available [facility] 3 13:10:47 Cramp in lower limb 842532264 Active 2022 Not Available [facility] 3 13:10:47 Intoleran t of cold 76534399 Active 2022 Not Available [facility] 3 13:10:47 Anemia 701325996 Active 2022 Not Available [facility] 3 13:10:47 Acquired bilateral pes planus 65719333090 084672 Active 2022 JORDAN Stovall, [facility] 3 14:29:22 Eruption 962361670 Active 2022 Isai Marin MD [address], [address], [place], [address] , [facility] 3 11:25:07 Osteoarth ritis 687044853 Active 2022 Isai Marin MD [address], [address], [place], [address] , [facility] 3 11:40:33 Skin lesion 11552023 Active 2022 Isai Marin MD [address], [place], [address] , [facility] 3 11:43:22 Acid reflux 882717372 Active 2022 Isai Marin MD [address], [place], [address] , [facility] 3 08:24:33 Acute upper respirato ry infection 87207090 Active 2023 CHANTEL Olson [address], [place], [address] , [facility] [employer] [facility] 4 09:41:55 Pain of left hand 48376071094 9103 Active 2023 Giuliana Ivan DORENEAdrian null, [facility] [employer] [facility] 4 10:10:18 Localized , primary osteoarth ritis of the wrist 882342208 Active 2023 CHANTEL Calero [address], [address], [place], [address] , [facility] [employer] [facility] 4 10:44:24 Osteoarth rosis of the carpometa carpal joint of the thumb 89609842 Active 2023 CHANTEL Calero [address], [address], [place], [address] , [facility] [employer] [facility] 4 10:44:50 Localized , primary osteoarth ritis of the wrist 395259745 Active 2023 CHANTEL Calero [address], [address], [place], [address] , [facility] [employer] [facility] 4 10:45:19 Acute bronchiti s 94165991 Active 2023 CHANTEL Olson [address], [address], [place], [address] , [facility] [employer] [facility] 4 12:35:06 Lesion of skin of nose 91328579763 131033 Active 2023 CHANTEL Olson [address], [address], [place], [address] , [facility] [employer] [facility] 4 12:41:52 Problem Notes None recorded. Procedures Surgical History Date Name Laterality Status Provider Name and Address Organization Details Recorded Time Foot Surgery completed Not Available [facility] 11/08/2022 08:06:46 Knee Replacement completed Not Available [facility] 11/08/2022 08:06:46 operation on hip joint completed Not Available [facility] 11/08/2022 08:06:46 tonsilectomy/yancy oids completed Not Available [facility] 11/08/2022 08:06:46 Appendectomy completed Not Available [facility] 11/08/2022 08:06:46 Hysterectomy completed Not Available [facility] 11/08/2022 08:06:46 Gastric Bypass completed Not Available [facility] 11/08/2022 08:06:46 Imaging Results Imaging Date Name Status LastModified by Organiz ation Details LastModified Time 12/17/2023 XR, hand completed [email or web address] [facility] [place] [address], [place], [address], 12/17/2023 10:47:27 01/01/2024 XR, chest, 2 view completed [email or web address] [place], [address], 05/20/2024 11:23:53 Procedure Notes None recorded. Medical Equipment None Reported. Allergies Allergen ID Allergen Name Allergen Category Reaction Reaction Severity Criticality Documentation Date Start Date Code Code System Note Provider Name and Address Organization Details Recorded Time Product containin g penicilli n and antibioti c (product) medicatio n Not available Not available Not available 11/08/2022 26096 05 SNOMED Not Available [facility] 3 08:14:13 codeine medicatio n Not available Not available Not available 11/08/2022 2670 RxNorm Not Available [facility] 3 08:14:13 Medications Name Sig Start Date Stop Date Status Note LastModified by Organization Details LastModified Time cyclobenz aprine 10 mg tablet 08/14 completed Not Available Not Available Not Available terconazo le 0.4 % vaginal cream 11/11 completed Not Available Not Available Not Available promethaz ine-DM 6.25 mg-15 mg/5 mL oral syrup Take 5 mL every 4 hours by oral route as needed for 10 days. 2023 active Not Available Not Available Not Avai lable prednison e 10 mg tablet TAKE 1 TABLET BY MOUTH THREE TIMES DAILY FOR 3 DAYS THEN 1 TWICE DAILY FOR 2 DAYS THEN 1 ONCE DAILY FOR 1 DAY 12/31 completed Not Available Not Available Not Available doxycycli ne hyclate 100 mg capsule Take 1 capsule twice a day by oral route for 10 days. 04/15 completed Not Available Not Available Not Available Carafate 100 mg/mL oral suspensio n Take 10 mL every 6 hours by oral route for 30 days. 04/15 completed Not Available Not Available Not Available clindamyc in HCl 300 mg capsule 08/15 completed Not Available Not Available Not Available polyethyl teresa glycol 3350 17 gram oral powder packet DISSOLVE 1 POWDER PACKET IN 8 OZ. OF FLUID & DRINK ONCE DAILY. HOLD FOR LOOSE STOOLS. 12/09 completed Not Available Not Available Not Available azithromy kacey 250 mg tablet TAKE 2 TABLETS BY MOUTH ON DAY 1, AND THEN TAKE 1 TABLET BY MOUTH ONCE A DAY ON DAY 2 THROUGH DAY 5 active Not Available Not Available No t Available fluconazo le 150 mg tablet Take 1 tablet every day by oral route. 12/20 completed Not Available Not Available Not Available benzonata te 200 mg capsule Take 1 capsule 3 times a day by oral route as needed for 10 days. 2023 active Not Available Not Available Not Avai lable ranitidin e 300 mg tablet 08/14 completed Not Available Not Available Not Available hydrocodo ne 5 mg-acetam inophen 325 mg tablet active Not Available Not Available Not Available flurbipro fen 0.03 % eye drops INSTILL 1 DROP THREE TIMES DAILY STARTING AFTER SURGERY, CONTINUE FOR 3 WEEKS active Not Available Not Available No t Available ondansetr on HCl 8 mg tablet active Not Available Not Available No t Available sucralfat e 1 gram tablet Take 1 tablet 3 times a day by oral route for 40 days. active Internal note: PT STATES TAKES 2 DAILYExt ernal note: DR. DURÁN PRESCRIB ES Not Available Not Available Not Available lisinopri l 20 mg tablet TAKE 1 TABLET BY MOUTH IN THE MORNING active Not Available Not Available No t Available bupivacai ne HCl 0.5 % (5 mg/mL) injection solution Take 10 mg by injectio n route. 2023 active Not Available Not Available Not Avai lable metoprolo l succinate ER 100 mg tablet,ex tended release 24 hr active Not Available Not Available Not Available metronida zole 500 mg tablet active Not Available Not Available No t Available Diovan 80 mg tablet active Not Available Not Available No t Available omeprazol e 40 mg capsule,d elayed release active Not Available Not Available Not Available doxycycli ne monohydra te 100 mg tablet Take 1 tablet twice a day by oral route for 10 days. active Not Available Not Available No t Available tramadol 50 mg tablet active Not Available Not Available Not Available baclofen 20 mg tablet 05/15 completed Not Available Not Available Not Available prednison e 10 mg tablets in a dose pack Take 1 tab by mouth, 3 times a day for 3 daysTake 1 tab by mouth 2 times a day for 2 daysTake 1 tab by mouth once a day for 1 day 12/31 completed Not Available Not Available Not Available oxycodone -acetamin ophen 5 mg-325 mg tablet TAKE 1 TABLET BY MOUTH EVERY 4 TO 6 HOURS NEEDED FOR SEVERE PAIN 03/28 completed Not Available Not Available Not Available alprazola m 0.25 mg tablet Take 1 tablet twice a day by oral route as needed. active Not Available Not Available No t Available prednisol one acetate 1 % eye drops,[employer] pension INSTILL 1 DROP THREE TIMES DAILY STARTING 4 HOURS AFTER SURGERY AND CONTINUI NG FOR 3 WEEKS active Not Available Not Available No t Available methocarb maribell 750 mg tablet Take 1 tablet twice a day by oral route as needed for 10 days. 11/11 completed Not Available Not Available Not Available Kenalog 10 mg/mL suspensio n for injection Take 10 mg by injectio n route. 2023 active [facility]: [phone] 4-20 Not Available Not Available Not Available hydrocodo ne 7.5 mg-acetam inophen 325 mg tablet 05/15 completed Not Available Not Available Not Available cephalexi n 500 mg capsule TAKE 1 CAPSULE BY MOUTH EVERY 6 HOURS 01/02 completed Not Available Not Available Not Available pantopraz ole 40 mg tablet,de layed release TAKE 1 TABLET BY MOUTH IN THE MORNING active Not Available Not Available No t Available cyanocoba shell (vit B-12) 1,000 mcg/mL injection solution Inject 1 mL every month by subcutan eous route. 2022 active Not Available Not Available Not Avai lable ferrous sulfate 325 mg (65 mg iron) tablet Take 1 tablet every day by oral route. 05/09 completed pt states it caused GI upset so she stopped taking Not Available Not Available Not Available neomycin- polymyxin -dexameth 3.5 mg/mL-10, 000 unit/mL-0 .1% eye drops INSTILL 1 DROP INTO EACH EYE THREE TIMES DAILY FOR 7 DAYS active Not Available Not Available No t Available Cipro 500 mg tablet Take 1 tablet every 12 hours by oral route for 5 days. 12/31 completed Not Available Not Available Not Available clotrimaz ole-betam ethasone 1 %-0.05 % topical cream APPLY CREAM TOPICALL Y TO THE AFFECTED AREA(S) TWICE DAILY FOR UP TO 2 WEEKS FOR YEAST active Not Available Not Available No t Available misoprost ol 200 mcg tablet TAKE 1 TABLET BY MOUTH TWICE DAILY active Not Available Not Available No t Available omeprazol e 20 mg capsule,d elayed release active Not Available Not Available Not Available mupirocin 2 % topical ointment 08/14 completed Not Available Not Available Not Available furosemid e 20 mg tablet active Not Available Not Available Not Available ergocalci ferol (vitamin D2) 1,250 mcg (50,000 unit) capsule TAKE 1 CAPSULE BY MOUTH ONCE WEEKLY active Not Available Not Available No t Available ibuprofen 600 mg tablet prn 04/15 completed Not Available Not Available Not Available levofloxa kacey 500 mg tablet active Not Available Not Available No t Available levofloxa kacey 750 mg tablet Take 1 tablet every day by oral route for 10 days, for Bronchit is. active Not Available Not Available No t Available methylpre dnisolone 4 mg tablets in a dose pack TAKE BY MOUTH DIRECTED ON INSIDE OF PACKAGE 09/15 completed Not Available Not Available Not Available albuterol sulfate HFA 90 mcg/actua tion aerosol inhaler INL 2 PFS PO Q 4 TO 6 H PRN active Not Available Not Available No t Available celecoxib 100 mg capsule TAKE 1 CAPSULE BY MOUTH TWICE DAILY active Not Available Not Available No t Available ondansetr on 4 mg disintegr ating tablet 08/14 completed PRN Not Available Not Available Not Available doxycycli ne hyclate 100 mg tablet TAKE 1 TABLET BY MOUTH EVERY 12 HOURS active Not Available Not Available No t Available AcipHex 20 mg tablet,de layed release Take 1 tablet every day by oral route for 30 days. active Not Available Not Available No t Available oxycodone 5 mg tablet TAKE 1 TABLET BY MOUTH EVERY 4 HOURS 12/09 completed Not Available Not Available Not Available Bactrim DS 800 mg-160 mg tablet Take 1 tablet twice a day by oral route for 5 days. 05/15 completed Not Available Not Available Not Available azithromy kacey 500 mg tablet Take 1 tablet every day by oral route for 1 day. 08/18 completed Not Available Not Available Not Available cyclobenz aprine 5 mg tablet Take 1 tablet every day by oral route at bedtime. active Not Available Not Available No t Available moxifloxa kacey 0.5 % eye drops INSTILL 1 DROP THREE TIMES DAILY STARTING 1 DAY BEFORE SURGERY AND CONTINUI NG FOR 1 WEEK AFTER active Not Available Not Available No t Available bupivacai ne (PF) 0.25 % (2.5 mg/mL) injection solution in office 2023 active [facility]:[id number] Not Available Not Available Not Available Senna Plus 8.6 mg-50 mg tablet TAKE 2 TABLETS BY MOUTH TWICE DAILY TO PREVENT CONSTIPA TION. HOLD FOR LOOSE STOOLS. 01/02 completed Not Available Not Available Not Available hydrocodo ne 7.5 mg-acetam inophen 325 mg/15 mL oral solution active Not Available Not Available Not Available ibandrona te 150 mg tablet TAKE 1 TABLET BY MOUTH ONCE EVERY MONTH 04/05 completed Not Available Not Available Not Available [facility] 100,000 unit/gram topical powder APPLY TO THE AFFECTED AREA(S) BY TOPICAL ROUTE 2 TIMES PER DAY 04/15 completed prn Not Available Not Available Not Available Pain Relief Extra Strength (acetamin ophen) 500 mg tablet TAKE 2 TABLETS BY MOUTH EVERY 6 HOURS (MAX 4,000MG ACETAMIN OPHEN (TYLENOL ) PER 24 HOURS) 12/09 completed Not Available Not Available Not Available Atrovent HFA 17 mcg/actua tion aerosol inhaler Inhale 2 puffs 4 times a day by inhalati on route for 10 days. active Not Available Not Available No t Available multivita min 2 po qd 2013 active Not Available Not Available Not Avai lable Calcium 500 1 PO QD 04/15 completed Not Available Not Available Not Available Pataday 0.2 % eye drops active Not Available Not Available Not Available Prolia 60 mg/mL subcutane ous syringe inject 1 mL every 6 months 11/29 completed Not Available Not Available Not Available Xarelto 10 mg tablet TAKE 1 TABLET BY MOUTH ONCE DAILY STARTING 24 HOURS AFTER SURGERY active Not Available Not Available No t Available Eliquis 2.5 mg tablet TAKE 1 TABLET BY MOUTH TWICE DAILY 11/29 completed Not Available Not Available Not Available Jardiance 10 mg tablet TAKE 1 TABLET BY MOUTH ONCE DAILY active Not Available Not Available No t Available Saxenda 3 mg/0.5 mL (18 mg/3 mL) subcutane ous pen injector INJECT 0.6MG DAILY FOR 7 DAYS, THEN INCREASE BY 0.6MG WEEKLY DOSING UNTIL At 3MG SUBCUTAN EOUS DAILY. 11/11 completed Not Available Not Available Not Available Shingrix (PF) 50 mcg/0.5 mL intramusc ular suspensio n, kit 12/20 completed Not Available Not Available Not Available Fluad 2018- 65yr up(PF)45 mcg(15 mcgx3)/0. 5 mL intramusc ular syringe PHARMACI ST ADMINIST ERED IMMUNIZA TION ADMINIST ERED AT TIME OF DISPENSI NG 12/20 completed Not Available Not Available Not Available Fluad Quad (65yr up)(PF) 60 mcg (15 mcg x 4)/0.5mL IM syringe PHARMACI ST ADMINIST ERED IMMUNIZA TION ADMINIST ERED AT TIME OF DISPENSI NG 12/20 completed Not Available Not Available Not Available BinaxNOW COVID-19 Ag Self Test kit Use as Directed on the Package 01/29 completed Not Available Not Available Not Available Vitals Date Recorded Body height Body height Body mass index (BMI) Body weight Body temperature Heart rate Oxygen saturation Oxygen saturation in Arterial blood by Pulse oximetry Systolic blood pressure Diastolic blood pressure Provider Name and Address Organization Details Last Updated DateTime 3 157.48 cm 157.48 cm 39.9 kg/m2 58963.1 4 g 96.7 [degF] 69 /min 97 % 97 % 116 mm[Hg] 78 mm[Hg] Glory gaines CMA [place] [facility] [place] [employer] [facility] 3 11:23:55 Date Recorded Body height Body mass index (BMI) Body weight Provider Name and Address Organization Details Last Updated DateTime 12/17/2023 162.56 cm 34.3 kg/m2 59242.47 g [employer] Work[employer] [facility] [employer] [facility] 12/17/2023 10:09:08 Date Recorded Body height Body mass index (BMI) Body weight Body temperature Respiratory rate Heart rate Oxygen saturation Oxygen saturation in Arterial blood by Pulse oximetry Systolic blood pressure Diastolic blood pressure Provider Name and Address Organization Details Last Updated DateTime 162.56 cm 34.8 kg/m2 54757.2 5 g 98.6 [degF] 16 /min 52 /min 94 % 94 % 114 mm[Hg] 70 mm[Hg] Anisha Peace RN [facility] [employer] [facility] 12:30:33 Date Recorded Body height Body mass index (BMI) Body weight Provider Name and Address Organization Details Last Updated DateTime 02/07/2024 162.56 cm 34.3 kg/m2 39904.47 g Annabella Naylor CNA [facility] [employer] [facility] 02/07/2024 13:25:11 Date Recorded Body height Provider Name an d Address Organization Details Last Updated DateTime 05/19/2024 162.56 cm Tiki Monet [facility] [employer] [facility] 05/19/2024 09:35:53 Social History Question Answer Notes LastModified by Organizat ion Details LastModified Time Tobacco Smoking Status Never [facility]oker Not Available [facility] 11/08/2022 08:06:35 What Is Your Level Of Alcohol Consumption? Occasional [id number] Information not available 11/08/2022 What Is Your Level Of Caffeine Consumption? Moderate [id number] Information not available 11/08/2022 In The 14 Days Before Symptom Onset, Have You Had Close Contact With A Laboratory-confirm ed COVID-19 While That Case Was Ill? No [id number] Information not available 11/08/2022 In The 14 Days Before Symptom Onset, Have You Had Close Contact With A Person Who Is Under Investigation For COVID-19 While That Person Was Ill? No [id number] Information not available 11/08/2022 Which Illicit Or Recreational Drugs Have You Used? No [id number] Information not available 11/08/2022 Sex: Female Functional Status None recorded. Mental Status None recorded. Family History Relationship Description Onset Age of this Age Resolved Age Notes LastModified by Organization Details LastModified Time Father Heart disease [id number] Not available 11/08/2022 08:06:48 Mother Hypertensive disorder [id number] Not available 11/08/2022 08:06:48 Mother Alzheimer's disease [id number] Not available 11/08/2022 08:06:48 Medical History Condition Response EYE PROBLEMS Y OBESITY Y GERD/NAUSEA Y ARTHRITIS Y SKIN PROBLEMS HEADACHES/MIGRAINES Y GI PROBLEMS Y KIDNEY DISEASE Y HYPERTENSION Y ANEMIA/BLOOD DISORDER Y Gynecological HistoryNo gynecological history recorded. Obstetrics History GPAL:G 0 P 0 0 0 0 Immunizations Vaccine Type Date Status Note Provider Nam e and Address Organization Details Recorded Time Influenza, split virus, trivalent, preservative 3 completed Glory Munoz CMA null, [facility] 05/11/2023 11:25:57 Influenza, MDCK, quadrivalent, PF 2 completed Glory Munoz CMA null, [facility] 05/11/2023 11:25:56 COVID-19, mRNA, LNP-S, PF, 30 mcg/0.3 mL dose 2 completed Glory Munoz CMA null, [facility] 05/11/2023 11:25:57 COVID-19, mRNA, LNP-S, PF, 100 mcg/0.5mL dose or 50 mcg/0.25mL dose 1 completed Glory Munoz CMA null, [facility] 05/11/2023 11:25:57 Influenza, split virus, quadrivalent, preservative 1 completed Glory Munoz CMA null, [facility] 05/11/2023 11:25:56 COVID-19, mRNA, LNP-S, PF, 100 mcg/0.5mL dose or 50 mcg/0.25mL dose 1 completed Glory Munoz CMA null, [facility] 05/11/2023 11:25:57 COVID-19, mRNA, LNP-S, PF, 100 mcg/0.5mL dose or 50 mcg/0.25mL dose 1 completed JORDAN Romero, [facility] 05/11/2023 11:25:57 Influenza, split virus, quadrivalent, preservative 0 completed JORDAN Romero, [facility] 05/11/2023 11:25:56 Influenza, split virus, quadrivalent, preservative 9 completed Not Available [facility] 02/12/2023 13:10:49 Influenza, split virus, quadrivalent, preservative 8 completed JORDAN Romero, [facility] 05/11/2023 11:25:56 Influenza, split virus, quadrivalent, preservative 7 completed Not Available [facility] 02/12/2023 13:10:49 Influenza, high-dose, trivalent, PF 6 completed JORDAN Romero, [facility] 05/11/2023 11:25:57 Influenza, split virus, trivalent, preservative 5 completed Not Available [facility] 02/12/2023 13:10:49 Pneumococcal conjugate PCV 13 3 completed Not Available [facility] 02/12/2023 13:10:49 zoster live 2 completed JORDAN Romero, [facility] 05/11/2023 11:25:57 pneumococcal polysaccharide PPV23 9 completed Not Available [facility] 02/12/2023 13:10:49 Past Encounters Encounter ID Performer Location Encounter Start Date Encounter Closed Date Diagnosis/Indication Diagnosis SNOMED-CT Code Diagnosis ICD10 Code Diagnosis Note [id number] [facility] [place] [address] 11/17/2020 00:00:00 11/17/2020 11:39:36 [id number] [facility] [place] [address] 12/20/2020 00:00:00 12/20/2020 09:34:40 [id number] [facility] [place] [address] [place] [address] 01/13/2021 00:00:00 01/13/2021 13:29:43 [id number] [facility] [place] [address] [place] [address] 02/17/2021 00:00:00 02/17/2021 13:19:54 [id number] [facility] [place] [address] [place] [address] 03/02/2021 00:00:00 03/03/2021 06:59:44 [id number] [facility] [place] [address] [place] [address] 03/16/2021 00:00:00 03/16/2021 13:56:11 [id number] [facility] [place] [address] [place] [address] 03/28/2021 00:00:00 03/28/2021 16:15:53 [id number] [facility] [place] [address] [place] [address] 04/14/2021 00:00:00 04/14/2021 11:46:05 [id number] [facility] [place] [address] [place] [address] 04/15/2021 00:00:00 04/16/2021 09:33:31 [id number] [facility] [address] [place] [address] 04/28/2021 00:00:00 04/28/2021 11:27:49 [id number] [facility] [place] [address] [place] [address] 05/18/2021 00:00:00 05/18/2021 11:55:29 [id number] [facility] [place] [address] , [place] [address] 06/15/2021 00:00:00 06/15/2021 14:28:12 [id number] [facility] [place] [address] , [place] [address] 07/15/2021 00:00:00 07/29/2021 17:19:49 [id number] [facility] [place] [address] , [place] [address] 08/12/2021 00:00:00 08/15/2021 09:48:41 [id number] [facility] [place] [address] , [place] [address] 09/14/2021 00:00:00 09/14/2021 11:52:04 [id number] [facility] [address] [place] [address] 09/15/2021 00:00:00 09/15/2021 11:45:49 [id number] [facility] [place] [address] , [place] [address] 10/11/2021 00:00:00 10/11/2021 10:43:49 [id number] [facility] [place] [address] [facility] [address] , [place] [address] 11/10/2021 00:00:00 11/10/2021 12:54:44 [id number] [facility] [address] [place] [address] 11/11/2021 00:00:00 11/13/2021 17:39:45 [id number] [facility] [address] [place] [address] 12/09/2021 00:00:00 12/09/2021 12:08:30 [id number] [facility] [place] [address] , [place] [address] 12/13/2021 00:00:00 12/14/2021 08:46:55 [id number] [facility] [address] [place] [address] 01/02/2022 00:00:00 01/02/2022 15:08:53 [id number] [facility] [place] [address] , [place] [address] 01/10/2022 00:00:00 01/10/2022 13:44:03 [id number] [facility] [address] [place] [address] 02/03/2022 00:00:00 02/03/2022 12:16:16 [id number] [facility] [address] [place] [address] 02/07/2022 00:00:00 02/07/2022 18:18:03 [id number] [facility] [place] [address] , [place] [address] 02/09/2022 00:00:00 02/09/2022 18:23:28 [id number] [facility] [place] [address] , [place] [address] 03/10/2022 00:00:00 03/10/2022 13:00:11 [id number] [facility] [place] [address] [place] [address] 04/12/2022 00:00:00 04/12/2022 11:01:55 [id number] [facility] [place] [address] [place] [address] 05/11/2022 00:00:00 05/11/2022 11:01:41 [id number] [facility] [place] [address] , [place] [address] 06/12/2022 00:00:00 06/12/2022 12:51:16 [id number] [facility] [place] [address] , [place] [address] 07/11/2022 00:00:00 07/11/2022 11:26:30 [id number] [facility] [place] [address] [facility] [address] , [place] [address] 08/10/2022 00:00:00 08/10/2022 12:50:41 [id number] [facility] [place] [address] [facility] [address] , [place] [address] 09/12/2022 00:00:00 09/12/2022 20:47:25 [id number] [facility] [place] [address] [place] [address] y , [place] [address] 10/11/2022 00:00:00 10/16/2022 15:02:11 [id number] Isai Marin MD [facility] [place] [address] [place] [address] y , [place] [address] 11/09/2022 10:25:17 11/09/2022 11:11:29 Cobalamin deficiency 989855042 E53.8 [id number] CHANTEL Brantley [facility] [address] [place] [address] 11/29/2022 10:18:25 11/29/2022 11:21:19 Pain in right hip joint 0496575554 89225 M25.551 [id number] Isai Marin MD [facility] [place] [address] [facility] [place] [address] 12/13/2022 10:48:56 12/13/2022 15:27:57 Cobalamin deficiency 832342221 E53.8 [id number] CHANTEL Olson [facility] [place] [address] , [place] [address] 01/10/2023 11:06:46 01/10/2023 11:32:23 Cobalamin deficiency 619026081 E53.8 [id number] Isai Marin MD [facility] [place] [address] , [place] [address] 01/29/2023 14:25:27 01/29/2023 15:16:35 Cramp in lower limb 279981818 R25.2 History of bypass of stomach 641592914 Z98.84 Intolerant of cold 22721 000 R68.89 [id number] Isai Marin MD [facility] [place] [facility] [place] [address] 02/09/2023 10:59:31 02/27/2023 12:18:14 [id number] Isai Marin MD [facility] [place] [facility] [place] [address] 03/12/2023 10:56:25 03/12/2023 11:23:00 Cobalamin deficiency 212990573 E53.8 [id number] Isai Marin MD [facility] [place] [facility] [place] [address] 04/12/2023 10:22:44 05/04/2023 14:25:05 Cobalamin deficiency 606623259 E53.8 [id number] Isai Marin MD [facility] [place] [facility] [place] [address] 05/11/2023 10:34:52 05/11/2023 10:55:44 [id number] Isai Marin MD [facility] [place] [address], [place] [address] 05/11/2023 10:57:31 05/11/2023 11:50:27 Osteoarthritis 657224472 M19.90 For filled out for disability Skin lesion 66852439 L98 .9 Apply JACEY and cover. [id number] CHANTEL Calero [facility] [address] [place] [address] 12/17/2023 09:53:26 12/17/2023 11:17:18 Pain of left hand 2692171499 69820 M79.642 Localized, primary osteoarthritis of the wrist 942253213 M19.032 Osteoarthr osis of the carpometacarpal joint of the thumb 30363046 M18.12 [id number] CHANTEL Olson [facility] [address] [facility] [place] [address] 01/01/2024 12:06:55 01/01/2024 12:53:32 Acute bronchitis 49487462 J20.9 [id number] CHANTEL Calero [facility] [place] [address] [place] [address] 02/07/2024 13:05:14 02/07/2024 13:56:29 Localized, primary osteoarthritis of the wrist 276357575 M19.032 Pain of left hand 454431 3269 36890 M79.642 Osteoarthr osis of the carpometacarpal joint of the thumb 08974368 M18.12 [id number] CHANTEL Calero [facility] [address] [place] [address] 05/19/2024 09:24:06 05/19/2024 10:26:18 Pain of left hand 4954745769 93901 M79.642 Osteoarthr osis of the carpometacarpal joint of the thumb 88959404 M18.12 Localized, primary osteoarthritis of the wrist 274679759 M19.032 Health Concerns Section Related Observation LastModified by Organization Detai ls LastModified Time None Recorded Concern Status LastModified by Organization Details LastModified Time None Recorded Advance Directives Directive None Recorded Payers Encounter Date Sequence Insurance Name Policy Number Policy Ell[place] Covered Member ID [place] Member ID Guarantor Name 05/11/2023 1 [place] Shania L Hemann [id number] Shania L Hemann 05/11/2023 2 [employer] (MEDICARE SUPPLEMENT) Shania L Hemann [id number] Shania L Hemann 12/17/2023 1 [place] Shania L Hemann [id number] Shania L Hemann 12/17/2023 2 [employer] [place] (MEDICARE SUPPLEMENT) Shania L Hemann [id number] Shania L Hemann 01/01/2024 1 [place] Shania L Hemann [id number] Shania L Hemann 01/01/2024 2 [employer] [place] [employer] (MEDICARE SUPPLEMENT) Shania L Hemann [id number] Shania L Hemann 02/07/2024 1 [place] Shania L Hemann [id number] Shania L Hemann 02/07/2024 2 [employer] [place] [employer] (MEDICARE SUPPLEMENT) Shania L Hemann [id number] Shania L Hemann 05/19/2024 1 [place] Shania L Hemann [id number] Shania L Hemann 05/19/2024 2 [employer] (MEDICARE SUPPLEMENT) Shania L Hemann [id number] Shania L Hemann Notes Date Note Type Note Provider Name and Address Organization Details Recorded Time 05/11/2023 text/html Here today Isai Marin MD [address], [place], [address], [employer] [facility] [employer] 05/11/2023 20:39:57 05/11/2023 text/html Here today for 4 month check up. Needs disability form filled out. Has hip pains and knee pains. Has a fever blister using abrevia on it. It is almost gone. Isai Marin MD [address], [place], [address], [employer] [facility] [employer] 05/11/2023 20:39:28 12/17/2023 text/html Patient returns with complaints of left wrist and basilar thumb pain. This has been an ongoing problem for many years. Occasionally she will get severe flares of pain that caused her hand to swell. She comes in today with some umjk-nr-sdhsgxde swelling throughout the hand and wrist no erythema heat no signs of infection noted. She denies any specific trauma or injury she knows she has osteoarthritis here and apparently has had another flare. She denies any history of rheumatoid arthritis or gout is not sure why she is having troubles lately. She states any motion or pressure on the wrist causes significant pain that is keeping her awake at night recently. Denies any fevers chills night sweats no constitutional symptoms otherwise is feeling well. 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 Despite conservative measures on her own at home her symptoms continue she is reporting the pain on a scale 1-10 at a 10 now. She comes in today requesting treatment for her left wrist she states several years ago she had a similar problem and shot of cortisone worked well for her.Past medical history sheet was reviewed and signed on the intake sheet of today's date drug allergies current medications family social history previous surgical history 10 point review of systems was reviewed and discussed in detail today with the patient. CHANTEL Calero [address] [facility] [address], [place], [address], [employer] 12/17/2023 10:50:38 01/01/2024 text/html no better after a zpak , no fever CHANTEL Olson [address] [facility], [address], [place], [address], [employer] 01/09/2024 10:29:20 02/07/2024 text/html Patient returns she is complaining of severe pain in her left hand and wrist. 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 However the last couple of days her pain has started to return she now states it is very severe about at 10 on a scale 1-10 by her report. States she can not really use her hand denies any erythema heat no effusion no signs of infection. She denies any fevers chills night sweats no constitutional symptoms, she states she otherwise feels well, she is hesitant to use her hand or do any gripping grasping flexion or extension of the wrist as well because of the pain. She denies ever having any history of gout denies any trauma or injury and denies any recent infections or neurovascular deficits or weakness. She is very tender at the basilar thumb joint and the dorsum of her wrist. The hand and wrist otherwise look benign. She comes in today requesting to be seen because she has having a lot of pain. CHANTEL Calero [address], [facility] [address], [place], [address], [employer] 02/07/2024 14:08:33 05/19/2024 text/html The patient retu rns with left wrist and left thumb CMC joint pain. Previous x-rays have shown significant osteoarthritis throughout the wrist and also severe CMC joint arthrosis. She is complaining of pain at the base of the thumb and also on the ulnar side at the ulnar carpal joint. Previous x-rays show some chondrocalcinosis and osteoarthritis in this area as well. 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 She denies any new trauma or injury no effusion or swelling no erythema heat or other signs of infection. She had a shot of cortisone in the wrist and the thumb a little over 3 months ago she would like to repeat this again today. CHANTEL Calero [address], [facility] [address], [place], [address], [employer] 05/19/2024 10:15:04 OBGyn Episode No OBEpisode recorded.
== END 2024-09-30 12:21 | disposition home or self-care (01) ==
PROVIDERS: PCP Nurse Practitioner Family; Visit Provider Nurse Practitioner Family
DX: E04.2 Nontoxic multinodular goiter (principal)
CPT/HCPCS: 10005; 10006; 88172; 88173; 88305

== ENCOUNTER 2024-11-20 10:57 | Outpatient (CLI) | payer MEDICARE, OTHER, SELFPAY ==
[2024-11-20 11:33] LABS: Hematocrit 38.2 % (37.0-47.0); Hemoglobin 10.4 g/dL (12.0-15.0); Mean Corpuscular HGB Conc 27.2 g/dl (32-36); Mean Corpuscular Hemoglobin 24.8 pg (26-34); Mean Corpuscular Volume 91.2 fl (80-100); Mean Platelet Volume 9.3 fl (7.4-10.4); Platelet Count Result 228 k/mm3 (150-375); Red Blood Count 4.19 M/mm3 (4.2-5.4); Red Cell Distribution Width 18.5 % (11.5-14.5); White Blood Count 5.3 K/mm3 (4.5-10.0)
[2024-11-20 11:52] LABS: Albumin Level 4.3 g/dL (3.5-5.1); Anion Gap 10 mmol/L (4-12); Blood Urea Nitrogen 24 mg/dL (7-17); Calcium 10.3 mg/dL (8.4-10.2); Carbon Dioxide 20 mmol/L (22-30); Chloride 108 mmol/L (98-107); Estimated Glomerular Filt Rate 51; Glucose 121 mg/dL (65-110); Phosphorus 3.5 mg/dL (2.5-4.5); Potassium 4.1 mmol/L (3.4-5.0); Sodium 138 mmol/L (137-145)
[2024-11-20 12:08] LABS: Creatinine Urine 119.5 mg/dL; Total Protein Urine Random 12 mg/dL
[2024-11-20 12:19] LABS: Parathyroid Intact 131.6 pg/mL (14.5-75.2)
[2024-11-20 12:23] LABS: Vitamin D 25 Hydroxy 41.7 ng/mL
--- OUTSIDE RECORDS SUMMARY | 2024-11-20 12:50 | XMS_ITS | Referral Summary ---
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
--- OUTSIDE RECORDS SUMMARY | 2024-11-20 12:50 | XMS_ITS | Clinical Summary ---
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
--- OUTSIDE RECORDS SUMMARY | 2024-11-20 12:51 | XMS_ITS | Clinical Summary ---
Author Organization [facility] [employer] Address [address] [place] [address] Care Team Providers Care Dispatcher Clerk Name Role Phone Melissa Herman RN Unavailable [phone] Luz Tobias STEAM STATION SUPERVISOR-PATIENT CARE TECHNICIAN Primary Care Provider + Source Comments [facility],non-owned Affiliates and Associated Physician Practices is amultiple site organization consisting of ambulatory clinics and hospital sitesin [place], [place], [place] and [place]. This disclosure is being madepursuant to the Care Everywhere program and may not contain all information available regarding this patient. Last updated 18.[facility] [employer] Allergies Active Allergy Reactions Criticality Noted Date [...] 71 05/03/2018 11:21 AM CDT Temperature 36.1 C (97 F) 01/25/2018 9:30 AM CDT Respiratory Rate 21 [...] Comments BONE DENSITY TESTING 1945 MEDICARE AWV 12 MONTHS 1945 HEPATITIS C SCREENING 06/29/1965 DTAP/TDAP/TD VACCINES (1 - Tdap) 1966 PNEUMOCOCCAL VACCINE 50+ (1 of 1 - PCV) 1997 ZOSTER VACCINE (1 of 2) 1997 SCREENING FOR DIABETES 10/27/2020 8, 10/25/2017, 02/06/2017, Additional history exists Respiratory Syncytial Virus (RSV) Vaccine Pt: or over 60 yrs (1 - 1-dose 75+ series) 2022 COVID-19 VACCINE (2023- season) 2024 INFLUENZA VACCINE (#1) 2024 DEPRESSION SCREENING 09/10/2024 HEPATITIS B VACCINE Aged Out No longe r eligible based on patient's age to complete this topic HIB VACCINE Aged Out No longer eligi ble based on patient's age to complete this topic HPV VACCINE Aged Out No longer eligi ble based on patient's age to complete this topic MENINGOCOCCAL (Group B) VACCINE SHARED DECISION-MAKING Aged Out No longer eligible based on patient's age to complete this topic MENINGOCOCCAL GROUPS A/C/Y/W VACCINE Aged Out No longer eligible based on patient's age to complete this topic Procedures Procedure Name Priority Date/Time Associated Diagnosis Comments BASIC METABOLIC PANEL (CALCIUM TOTAL) AM Draw 10/27/2017 5:22 AM RENTAL SALES REPRESENTATIVE from Last 3 Months or Most Recently Relevant to Health Maintenance Results * (ABNORMAL) BASIC METABOLIC PANEL (CALCIUM TOTAL) (10/27/2017 5:22 AM RENTAL SALES REPRESENTATIVE) Glucose 84 74 - 106 mg/dL 10/27/2017 5:[address] [facility] Sodium 140 136 - 145 mmol/L 10/27/2017 5:52 AM [facility] Potassium 3.4(L) 3.5 - 5.1 mmol/L 10/27/2017 5:52 AM [facility] Chloride 106 98 - 107 mmol/L 10/27/2017 5:52 AM [facility] CO2 29 22 - 31 mmol/L 10/27/2017 5:52 AM [facility] Calcium 9.1 8.5 - 10.1 mg/dL 10/27/2017 5:[address] [facility] Anion Gap 5(L) 8 - 16 mmol/L 10/27/2017 5:[address] [facility] BUN 20 7 - 21 mg/dL 10/27/2017 5:52 AM [facility] Creatinine 0.75 0.50 - 1.30 mg/dL 10/27/2017 5:[address] [facility] eGFR by MDRD >60 mL/min/1.7 3m2 10/27/2017 5:52 AM RENTAL SALES REPRESENTATIVE [facility] eGFR by MDRD >60 mL/min/1.7 3m2 10/27/2017 5:52 AM RENTAL SALES REPRESENTATIVE [facility] Blood BLOOD SPECIMEN / Unknown Venipuncture / Unknown 10/27/2017 5:22 AM RENTAL SALES REPRESENTATIVE 10/27/2017 5:28 AM RENTAL SALES REPRESENTATIVE Kwame Dinero MD LAB - CHEMISTRY [facility] [address] [place] [address] from Last 3 Months or Most Recently Relevant to Health Maintenance Advance Directives Documents on File Type Date Recorded Patient Debt Collection Specialist Expl anation Adv Directive/Living Will/POA 03/30/2015 10:06 [...] 2:29 PM 08/30/2012 2:35 PM Care Teams Dispatcher Clerk Relationship Specialty Start Date End Date Luz Tobias APRN-PATIENT CARE TECHNICIAN [address] [address] PCP - General Nurse Practitioner 02/04/17 Melissa Herman, NATALIE Helicopter Engineer 03/25/15
--- OUTSIDE RECORDS SUMMARY | 2024-11-20 12:51 | XMS_ITS | Referral Summary ---
Author Organization [facility] [employer] Address [address] [place] [address] Care Team Providers Care Boat Officer Name Role Phone Melissa Herman RN Unavailable [phone] Luz Tobias FREELANCE INTERPRETER/TRANSLATOR-COMPUTER PATTERNMAKER Primary Care Provider + Source Comments [facility],non-owned Affiliates and Associated Physician Practices is amultiple site organization consisting of ambulatory clinics and hospital sitesin [place], [place], [place] and [place]. This disclosure is being madepursuant to the Care Everywhere program and may not contain all information available regarding this patient. Last updated 18.[facility] [employer] Allergies Active Allergy Reactions Criticality Noted Date [...] (CALCIUM TOTAL) AM Draw 10/27/2017 5:22 AM FARM MANAGEMENT SUPERVISOR from Last 3 Months or Most Recently Relevant to Health Maintenance Results * (ABNORMAL) BASIC METABOLIC PANEL (CALCIUM TOTAL) (10/27/2017 5:22 AM FARM MANAGEMENT SUPERVISOR) Glucose 84 74 - 106 mg/dL 10/27/2017 5:52 AM [facility] Sodium 140 136 - 145 mmol/L 10/27/2017 5:52 AM [facility] Potassium 3.4(L) 3.5 - 5.1 mmol/L 10/27/2017 5:52 AM [facility] Chloride 106 98 - 107 mmol/L 10/27/2017 5:52 AM [facility] CO2 29 22 - 31 mmol/L 10/27/2017 5:52 AM [facility] Calcium 9.1 8.5 - 10.1 mg/dL 10/27/2017 5:52 AM [facility] Anion Gap 5(L) 8 - 16 mmol/L 10/27/2017 5:52 AM [facility] BUN 20 7 - 21 mg/dL 10/27/2017 5:52 AM [facility] Creatinine 0.75 0.50 - 1.30 mg/dL 10/27/2017 5:52 AM [facility] eGFR by MDRD >60 mL/min/1.7 3m2 10/27/2017 5:52 AM [facility] eGFR by MDRD >60 mL/min/1.7 3m2 10/27/2017 5:52 AM [facility] Blood BLOOD SPECIMEN / Unknown Venipuncture / Unknown 10/27/2017 5:22 AM FARM MANAGEMENT SUPERVISOR 10/27/2017 5:28 AM FARM MANAGEMENT SUPERVISOR Kwame Dinero MD LAB - CHEMISTRY [facility] Organization Address City/State/ZIP Co de Phone Number [facility] [address] [place] [address] from Last 3 Months or Most Recently Relevant to Health Maintenance Insurance Payer Benefit Plan / Group Subscriber ID Effective Dates Phone Address Type MEDICARE MEDICARE PART A AND B [id number] Effective for all dates [phone] [address] [place] [address] Medicare [employer] [place] [employer] [place] [id number] Effective for all dates [address] [address] ATTN GAAA BASIC [place], [place] [address] PPO SELF PAY NO INSURANCE SELF PAY NO INSURANCE Effective for all dates [place], [place] Self Pay MEDICARE [place] MED[place] [id number] Effective for all dates [address] [place] [address] Medicare [place]ICARE [place] MEDICARE [id number] Effective for all dates [address] [place] [address] Medicare [employer] [place] [employer] [place] [facility] [id number] 06/10/2012-Pre sent [address] [place] [address] Commercial Advance Directives Documents on File Type Date Recorded 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
--- OUTSIDE RECORDS SUMMARY | 2024-11-20 12:51 | XMS_ITS | Clinical Summary ---
Author Organization [facility] Address [address] [place] [address] Care Team Providers Care Vine Pruner Name Role Phone Pelon Curiel MD Primary [...] 06/06/2018, 07/03/2017, 06/07/2017, Additional history exists Meningococcal B Vaccine Aged Out No l onger eligible based on patient's age to complete this topic Meningococcal Vaccine Aged Out No baltazar juan carlos eligible based on patient's age to complete this topic RSV Immunizations Under 20 Months Aged Out No longer eligible based on patient's age to complete this topic Insurance [facility] Care Teams Vine Pruner Relationship Specialty Start Date End Date Pelon Curiel MD [address] [place] [address] PCP - General ORTHOPAEDICS 05/27/18
--- OUTSIDE RECORDS SUMMARY | 2024-11-20 12:51 | XMS_ITS | Continuity of Care Document ---
Author Organization [facility] Address [address] [place] [address] Phone Care Team Providers Care Qa Software Test Engineer Name Role Phone Shahla Guillen Unavailable Unavailable Procedures Procedure Date Eye Exam & Treatment Eye Exam & Treatment Progressive Lens, Plastic Vision Svcs Frames Purchases Tax - Medical Eye Exam, New Patient Refraction Advance Directives Directive Yes / No Effective Date File Name No Information Encounters Encounter Description Practice Location Reason(s) For Visit Diagnoses Date Provider Providers Copied on Encounter [facility], [address] [place] [address] [address], [place], [place], [id number], tel:[phone] [facility] No Information 5-201 0 Mindy Gale. [address], [place], [place], [facility], . tel:[phone] [facility], [address] [place] [address] [address], [place], [place], [id number], [place] tel:[phone] [facility] No Information [address] Brittany Carroll. [address] [facility] [address], [place], [place], [facility], . tel:[phone] [facility], [address], [place], [place], [id number], [place] tel:[phone] [facility] No Information 8 [facility]. [address] [facility], [address], [place], [place], [id number], [place]. tel:[phone] Referring Provider: Glen granados, [address], [address]. tel:[phone] sulting Provider: Rani Barillas, [address] [place], [address]. tel:[phone] [facility], [address] [facility] [address], [place], [place], [id number], [place] tel:[phone] [facility] No Information 8 Brittany Carroll. [address], [address], [place]. tel:[phone] Family History Family Member Type Diagnosis Age [...]
--- OUTSIDE RECORDS SUMMARY | 2024-11-20 12:51 | XMS_ITS | Patient Health Summary ---
Author Organization [facility] Address [address] [place] [address] Care Team Providers Care Rug Dyer Helper Name Role Phone Melissa Herman RN Unavailable [phone] Luz Tobias APRN-SCHEDULER Primary Care Provider + Note from [facility],non-owned Affiliates and Associated Physician Practices is amultiple site organization consisting of ambulatory clinics and hospital sitesin [place], [place], [place] and [place]. This disclosure is being madepursuant to the Care Everywhere program and may not contain all information available regarding this patient. Last updated 18.[facility] Allergies * Codeine(Other) -High Criticality * Penicillins(Other) [...] * (ABNORMAL) ZINC BLOOD (10/27/2017 12:36 PM MANAGER COLLECTION) Only the most recent of3 resultswithin the time period is included. [facility] Zinc, Plasma or Serum 52(L) 56 - 134 ug/dL 10/31/2017 3:36 AM [facility] Comment:Detection Limit = 5 Blood BLOOD SPECIMEN / Unknown Venipuncture / Unknown 10/27/2017 12:36 PM MANAGER COLLECTION 10/27/2017 12:51 PM MANAGER COLLECTION Narrative [facility] - 10/31/2017 3:36 AM MANAGER COLLECTION Performed at: [address] [id number] Shovel Logger: Arthur Page MD, Phone: [phone] Justice Ly MD LAB - CHEMISTRY NICOLETTE LOW [facility] [address] [place] [address] * VITAMIN B1 (10/27/2017 12:36 PM MANAGER COLLECTION) Only the most recent of4 resultswithin the time period is included. [facility] Vitamin B1 Whole Blood 100.9 66.5 - 200.0 nmol/L 10/31/2017 3:36 AM [facility] Comment: This test was developed and its performance characteristics determined by [facility]. It has not been cleared or approved by the Food and Drug Administration. Blood BLOOD SPECIMEN / Unknown Venipuncture / Unknown 10/27/2017 12:36 PM MANAGER COLLECTION 10/27/2017 12:51 PM MANAGER COLLECTION Narrative [facility] - 10/31/2017 3:36 AM MANAGER COLLECTION Performed at: [address] [id number] Shovel Logger: Arthur Page MD, Phone: [phone] Justice Ly MD LAB - CHEMISTRY NICOLETTE LOW Performing Organization Address City/[facility]/ZIP Co de Phone Number [facility]) [address] [place] [address] * COPPER BLOOD (10/27/2017 12:36 PM MANAGER COLLECTION) Only the most recent of2 resultswithin the time period is included. Copper 113 72 - 166 ug/dL 10/31/2017 3:36 AM MANAGER COLLECTION [facility] Comment:Detection Limit = 5 Blood BLOOD SPECIMEN / Unknown Venipuncture / Unknown 10/27/2017 12:36 PM MANAGER COLLECTION 10/27/2017 12:51 PM MANAGER COLLECTION Narrative [facility] - 10/31/2017 3:36 AM MANAGER COLLECTION Performed at: [address] [place] [id number] Shovel Logger: Arthur Page MD, Phone: [phone] Justice Ly MD LAB - CHEMISTRY NICOLETTE LOW Performing Organization Address [facility] Co de Phone Number [facility]) [address] [place] [address] * VITAMIN D 25-HYDROXY (10/27/2017 12:36 PM MANAGER COLLECTION) Only the most recent of5 resultswithin the time period is included. Vitamin D, 25 Hydroxy 68.16 30 - 100 ng/mL 10/28/2017 5:54 PM MANAGER COLLECTION [facility] Blood BLOOD SPECIMEN / Unknown Venipuncture / Unknown 10/27/2017 12:36 PM MANAGER COLLECTION 10/27/2017 12:51 PM MANAGER COLLECTION Narrative [facility] - 10/28/2017 5:54 PM MANAGER COLLECTION Vitamin D Status: Deficiency <20 ng/mL Insufficiency 20-30 ng/mL Sufficiency 30-100 ng/mL Toxicity >100 ng/mL Justice Ly MD LAB - CHEMISTRY NICOLETTE LOW [facility] [address] [place] [address] * VITAMIN B12 (10/27/2017 12:36 PM MANAGER COLLECTION) Only the most recent of4 resultswithin the time period is included. Pathologist [facility] Vitamin B12 781 211 - 911 pg/mL 10/27/2017 1:39 PM MANAGER COLLECTION [facility] Blood BLOOD SPECIMEN / Unknown Venipuncture / Unknown 10/27/2017 12:36 PM MANAGER COLLECTION 10/27/2017 12:51 PM MANAGER COLLECTION Justice Ly MD LAB - CHEMISTRY NICOLETTE LOW Performing Organization Address [facility] Co de Phone Number [facility] [id number] [place] [address] * IRON + TRANSFERRIN PANEL (10/27/2017 12:36 PM MANAGER COLLECTION) [facility] Iron 96 50 - 170 ug/dL 10/27/2017 1:17 PM [facility] Transferrin 261 250 - 380 mg/dL 10/27/2017 1:17 PM [facility] TIBC Calculated 326 240 - 450 mg/dL 10/27/2017 1:17 PM [facility] Iron Saturation % 29 20 - 50 % 10/27/2017 1:17 PM [facility] Blood BLOOD SPECIMEN / Unknown Venipuncture / Unknown 10/27/2017 12:36 PM MANAGER COLLECTION 10/27/2017 12:51 PM MANAGER COLLECTION Justice Ly MD LAB - CHEMISTRY ORDJeannine LOW Performing Organization Address City/[facility] Co de Phone Number [facility] [address] [place], [place] [phone] * (ABNORMAL) BASIC METABOLIC PANEL (CALCIUM TOTAL) (10/27/2017 5:22 AM MANAGER COLLECTION) Only the most recent of9 resultswithin the time period is included. [facility] Glucose 84 74 - 106 mg/dL 10/27/2017 5:52 AM MANAGER COLLECTION [facility] Sodium 140 136 - 145 mmol/L 10/27/2017 5:52 AM [facility] Potassium 3.4(L) 3.5 - 5.1 mmol/L 10/27/2017 5:52 AM [facility] Chloride 106 98 - 107 mmol/L 10/27/2017 5:52 AM [facility] CO2 29 22 - 31 mmol/L 10/27/2017 5:52 AM [facility] Calcium 9.1 8.5 - 10.1 mg/dL 10/27/2017 5:52 AM [facility] Anion Gap 5(L) 8 - 16 mmol/L 10/27/2017 5:52 AM [facility] BUN 20 7 - 21 mg/dL 10/27/2017 5:52 AM [facility] Creatinine 0.75 0.50 - 1.30 mg/dL 10/27/2017 5:52 AM [facility] eGFR by MDRD >60 mL/min/1.7 3m2 10/27/2017 5:52 AM [facility] eGFR by MDRD >60 mL/min/1.7 3m2 10/27/2017 5:52 AM [facility] Blood BLOOD SPECIMEN / Unknown Venipuncture / Unknown 10/27/2017 5:22 AM MANAGER COLLECTION 10/27/2017 5:28 AM MANAGER COLLECTION Kwame Dinero MD LAB - CHEMISTRY NICOLETTE ESCOBARSaint Alphonsus Eagle Organization Address City/State/ZIP Co de Phone Number [facility] [address] [place] [address] * CBC W AUTO DIFFERENTIAL (10/25/2017 5:44 PM MANAGER COLLECTION) Only the most recent of12 resultswithin the time period is included. WBC 4.7 4.4 - 10.7 x10E9/L 10/25/2017 5:50 PM [facility] WBC Corrected x10E9/L 10/25/2017 5:50 PM [facility] RBC 4.37 3.80 - 5.20 x10E12/L 10/25/2017 5:50 PM [facility] Hemoglobin 12.5 12.0 - 15.6 gm/dL 10/25/2017 5:50 PM [facility] Hematocrit 39.6 35.9 - 45.5 % 10/25/2017 5:50 PM [facility] MCV 90.6 80.7 - 98.3 fl 10/25/2017 5:50 PM MANAGER COLLECTION [facility] MCH 28.6 26.7 - 34.0 pg 10/25/2017 5:50 PM MANAGER COLLECTION [facility] MCHC 31.6 30.8 - 35.9 gm/dL 10/25/2017 5:50 PM MANAGER COLLECTION [facility] Platelet Count 215 153 - 416 x10E9/L 10/25/2017 5:50 PM MANAGER COLLECTION [facility] RDW-CV 14.4 12.1 - 14.9 % 10/25/2017 5:50 PM MANAGER COLLECTION [facility] MPV 9.6 9.4 - 12.9 fl 10/25/2017 5:50 PM MANAGER COLLECTION [facility] Neutrophils % 55.6 44.0 - 73.0 % 10/25/2017 5:50 PM MANAGER COLLECTION [facility] Lymphocytes % 33.6 20.0 - 43.0 % 10/25/2017 5:50 PM MANAGER COLLECTION [facility] Monocytes % 7.0 5.0 - 13.0 % 10/25/2017 5:50 PM MANAGER COLLECTION [facility] Eosinophils % 2.5 0.0 - 6.0 % 10/25/2017 5:50 PM MANAGER COLLECTION [facility] Basophils % 1.1 0.0 - 2.0 % 10/25/2017 5:50 PM MANAGER COLLECTION [facility] Immature Granulocytes 0.2 0 - 1 % 10/25/2017 5:50 PM MANAGER COLLECTION [facility] Neutrophil Absolute 2.63 2.01 - 7.14 x10E9/L 10/25/2017 5:50 PM MANAGER COLLECTION [facility] Lymphocytes Absolute 1.59 1.07 - 3.94 x10E9/L 10/25/2017 5:50 PM MANAGER COLLECTION [facility] Monocytes Absolute 0.33 0.26 - 1.07 x10E9/L 10/25/2017 5:50 PM MANAGER COLLECTION [facility] Eosinophils Absolute 0.12 0 - 0.47 x10E9/L 10/25/2017 5:50 PM MANAGER COLLECTION [facility] Basophils Absolute 0.05 0 - 0.08 x10E9/L 10/25/2017 5:50 PM MANAGER COLLECTION [facility] Immature Granulocytes Absolute 0.01 0.00 - 0.06 x10E9/L 10/25/2017 5:50 PM MANAGER COLLECTION [facility] nRBC Auto 0 /100 WBC 10/25/2017 5:50 PM MANAGER COLLECTION [facility] Blood BLOOD SPECIMEN / Unknown Venipuncture / Unknown 10/25/2017 5:44 PM MANAGER COLLECTION 10/25/2017 5:47 PM MANAGER COLLECTION Bessy Villa VENEER DEPARTMENT MANAGER-SCHEDULER LAB - HEMATO LOGY ORDERABLES [facility] [address] [place] [address] * (ABNORMAL) COMPREHENSIVE METABOLIC PANEL (10/25/2017 5:44 PM MANAGER COLLECTION) Only the most recent of5 resultswithin the time period is included. Glucose 109(H) 74 - 106 mg/dL 10/25/2017 6:10 PM [facility] Sodium 140 136 - 145 mmol/L 10/25/2017 6:10 PM [facility] Potassium 3.3(L) 3.5 - 5.1 mmol/L 10/25/2017 6:10 PM [facility] Chloride 108(H) 98 - 107 mmol/L 10/25/2017 6:10 PM [facility] CO2 24 22 - 31 mmol/L 10/25/2017 6:10 PM [facility] Calcium 9.5 8.5 - 10.1 mg/dL 10/25/2017 6:10 PM [facility] Anion Gap 8 8 - 16 mmol/L 10/25/2017 6:10 PM [facility] BUN 14 7 - 21 mg/dL 10/25/2017 6:10 PM [facility] Creatinine 0.86 0.50 - 1.30 mg/dL 10/25/2017 6:10 PM [facility] Alkaline Phosphatase 120 38 - 126 U/L 10/25/2017 6:10 PM [facility] ALT 13 13 - 61 U/L 10/25/2017 6:10 PM [facility] AST 15 5 - 40 U/L 10/25/2017 6:10 PM [facility] Protein Total 6.8 6.4 - 8.2 gm/dL 10/25/2017 6:10 PM [facility] Albumin 2.9(L) 3.4 - 5.0 gm/dL 10/25/2017 6:10 PM [facility] Bilirubin Total 0.2 0.2 - 1.0 mg/dL 10/25/2017 6:10 PM MANAGER COLLECTION [facility] eGFR by MDRD >60 mL/min/1.7 3m2 10/25/2017 6:10 PM MANAGER COLLECTION [facility] eGFR by MDRD >60 mL/min/1.7 3m2 10/25/2017 6:10 PM MANAGER COLLECTION [facility] Blood BLOOD SPECIMEN / Unknown Venipuncture / Unknown 10/25/2017 5:44 PM MANAGER COLLECTION 10/25/2017 5:47 PM MANAGER COLLECTION Bessy Villa VENEER DEPARTMENT MANAGER-SCHEDULER LAB - CHEMIS TRY ORDERABLES [facility] [address] [place] [address] * CT ABDOMEN AND PELVIS [...] grammatical or syntax problems by a trained neuropsychology medical consultant. For questions about the report, please contact [...] grammatical or syntax problems by a trained neuropsychology medical consultant. For questions about the report, please contact [...] of2 resultswithin the time period is included. PTH Intact 126(H) 14 - 72 pg/mL 02/05/2017 12:24 PM CDT [facility] Calcium 9.0 8.5 - 10.1 mg/dL 02/05/2017 12:24 PM CDT [facility] Blood BLOOD SPECIMEN / Unknown 02/05/2017 11:36 AM CDT 02/05/2017 11:42 AM CDT Froy Barksdale MD LAB - CHEMISTRY NICOLETTE LOW Performing Organization Address [facility] de Phone Number [facility] [address] [place] [address] * MAGNESIUM BLOOD (02/05/2017 11:36 AM CDT) Only the most recent of2 resultswithin the time period is included. Magnesium 2.0 1.6 - 2.6 mg/dL 02/05/2017 11:53 AM CDT [facility] Blood BLOOD SPECIMEN / Unknown 02/05/2017 11:36 AM CDT 02/05/2017 11:41 AM CDT Froy Barksdale MD LAB - CHEMISTRY NICOLETTE LOW Performing Organization Address [facility] Co de Phone Number [facility] [address] [place] [address] * IRON BLOOD (02/05/2017 11:36 AM CDT) Only the most recent of2 resultswithin the time period is included. Iron 166 50 - 170 ug/dL 02/05/2017 12:20 PM CDT [facility] Blood BLOOD SPECIMEN / Unknown 02/05/2017 11:36 AM CDT 02/05/2017 11:41 AM CDT Froy Barksdale MD LAB - CHEMISTRY NICOLETTE LOW Performing Organization Address [facility] Co de Phone Number [facility] [id number] [place] [address] * FOLATE (02/05/2017 11:36 AM CDT) Folate 16.5 3.1 - 17.5 ng/mL 02/05/2017 12:16 PM CDT [facility] Blood BLOOD SPECIMEN / Unknown 02/05/2017 11:36 AM CDT 02/05/2017 11:42 AM CDT Froy Barksdale MD LAB - CHEMISTRY ORDJeannine LOW Performing Organization Address [facility] de Phone Number [facility] [address] [place] [phone] * FERRITIN (02/05/2017 11:36 AM CDT) Only the most recent of2 resultswithin the time period is included. Ferritin 21 10 - 291 ng/mL 02/05/2017 12:20 PM CDT [facility] Blood BLOOD SPECIMEN / Unknown 02/05/2017 11:36 AM CDT 02/05/2017 11:41 AM CDT Froy Barksdale MD LAB - CHEMISTRY ORDJeannine LOW Performing Organization Address [facility] de Phone Number [facility] [id number] [place] [address] * TROPONIN I (02/04/2017 8:06 PM CDT) Only the most recent of3 resultswithin the time period is included. Troponin I <0.015 0.000 - 0.049 ng/mL 02/04/2017 8:40 PM CDT [facility] Blood BLOOD SPECIMEN / Unknown 02/04/2017 8:06 PM CDT 02/04/2017 8:19 PM CDT Narrative [facility] - 02/04/2017 8:40 PM CDT [...] sepsis. Beryl Oconnell MD LAB - CHEMISTRY ORDE RABLES Performing Organization Address City/[facility]/ZIP Co de Phone Number [facility] [address] [place], [place] [phone] * LACTATE FLACO POC NOTIFICATION (02/04/2017 7:47 PM CDT) Comment Notification Label Only - See Separate Report 02/04/2017 9:00 PM CDT [facility] Blood BLOOD SPECIMEN / Unknown 02/04/2017 7:47 PM CDT 02/04/2017 7:47 PM CDT Beryl Oconnell MD LAB - BLOOD GASES OR DERABLES Performing Organization Address [facility] Co de Phone Number [facility] [address] [place] [address] * (ABNORMAL) URINALYSIS MICROSCOPIC ONLY W/REFLEX CULTURE (02/04/2017 2:12 PM CDT) Epithelial Cell UA 20-50(A) 0-2, 2-5 # /hpf 02/04/2017 2:42 PM CDT [facility] Hyaline Casts 0-2 0 - 2 # /lpf 02/04/2017 2:42 PM CDT [facility] Calcium Oxalate Crystals 4+(A) None Seen 02/04/2017 2:42 PM CDT [facility] Urine URINE SPECIMEN OBTAINED BY CLEAN CATCH PROCEDURE / Unknown 02/04/2017 2:12 PM CDT 02/04/2017 2:12 PM CDT Beryl Oconnell MD LAB - URINALYSIS ORD ERABLES [facility] [address] [place] [address] * (ABNORMAL) URINALYSIS ROUTINE W/REFLEX TO CULTURE (02/04/2017 2:12 PM CDT) Color UA Yellow Straw, Yellow, Dark Yellow 02/04/2017 2:24 PM CDT [facility] Clarity UA Turbid 02/04/2017 2:24 PM CDT [facility] Specific [place] UA >1.030(H) 1.005 - 1.030 02/04/2017 2:24 PM CDT [facility] pH UA 6.5 5.0 - 8.0 pH 02/04/2017 2:24 PM CDT [facility] Protein UA 2+(A) Negative 02/04/2017 2:24 PM CDT [facility] Blood UA Negative Negative 02/04/2017 2:24 PM CDT [facility] Leukocyte UA Negative Negative 02/04/2017 2:24 PM CDT [facility] Nitrite UA Negative Negative 02/04/2017 2:24 PM CDT [facility] Glucose UA Negative Negative 02/04/2017 2:24 PM CDT [facility] Ketone UA 2+(A) Negative 02/04/2017 2:24 PM CDT [facility] Bilirubin UA Negative Negative 02/04/2017 2:24 PM CDT [facility] Urobilinogen UA 1.0 0.1 - 1.0 EU/dL 02/04/2017 2:24 PM CDT [facility] WBC UA Auto 2-5 0-2, 2-5 # /hpf 02/04/2017 2:24 PM CDT [facility] RBC UA Auto Reflex to manual(A) 0-2, 2-5 # /hpf 02/04/2017 2:24 PM CDT [facility] Epithelial Cell UA Auto Reflex to manual(A) 0-2, 2-5 # /hpf 02/04/2017 2:24 PM CDT [facility] Bacteria UA Auto 1+(A) None seen 02/04/2017 2:24 PM CDT [facility] Hyaline Casts UA Auto Reflex to manual(A) 0 - 2 #/lpf 02/04/2017 2:24 PM CDT [facility] Reflex Status Culture not indicated 02/04/2017 2:24 PM CDT [facility] Urine URINE SPECIMEN OBTAINED BY CLEAN CATCH PROCEDURE / Unknown 02/04/2017 2:12 PM CDT 02/04/2017 2:12 PM CDT Beryl Oconnell MD LAB - URINALYSIS ORD ERABLES Performing Organization Address [facility]/ZIP Co de Phone Number [facility] [address] [place], [place] [phone] * LIPASE BLOOD (02/04/2017 12:50 PM CDT) Pathologist [facility] Lipase 102 73 - 393 U/L 02/04/2017 3:54 PM CDT [facility] Blood BLOOD SPECIMEN / Unknown 02/04/2017 12:50 PM CDT 02/04/2017 12:57 PM CDT Beryl Oconnell MD LAB - CHEMISTRY ORDE RABLES Performing Organization Address [facility] Co de Phone Number [facility] [address] [place] [address] * EKG 12-LEAD (02/04/2017 12:42 PM CDT) Only the most recent of4 resultswithin the time period is included. Ventricular Rate 62 BPM [facility] Atrial Rate 62 BPM [facility] P-R Interval 146 ms [facility] QRS Duration ms 86 ms [facility] Q-T Interval ms 416 ms [facility] QTC Calculation (Bezet) 422 ms [facility] Calculated P [place]ok 51 degrees [facility] Calculated R [place] -40 degrees [facility] Calculated T [place]ok 50 degrees [facility] Interpretation EKG Normal sinus rhythm Possible Left atrial enlargement Left axis deviation Left ventricular hypertrophy Abnormal ECG Confirmed by MATT VERDUZCO MD ([id number]) on 02/05/2017 7:31:34 PM [facility] 02/04/2017 12:4 2 PM CDT 02/05/2017 7:31 PM CDT Beryl Oconnell MD ECG ORDERABLES [facility] * LAB RESULTS ORDER (09/18/2015) Only the most recent of2 resultswithin the time period is included. Bessy Villa VENEER DEPARTMENT MANAGER-SCHEDULER LAB - THERAP EUTIC DRUG MONITORING ORDERABLES * (ABNORMAL) GLUCOSE - POINT OF CARE (03/27/2015 12:45 PM CDT) Only the most recent of24 resultswithin the time period is included. [facility] Glucose WB/POC 111(H) 70 - 106 mg/dL 03/27/2015 9:59 PM CDT [facility] Blood BLOOD SPECIMEN / Unknown 03/27/2015 12:45 PM CDT 03/27/2015 9:59 PM CDT Justice Ly MD LAB - POINT OF CARE ORDERABLES Performing Organization Address City/[facility] Co de Phone Number [facility] [address] [place] [phone] * VAS LEFT VENOUS DUPLEX LE (03/26/2015 10:56 AM CDT) Anatomical Region Laterality Modality Lower Extremity, Upper Extremity Ultrasound 03/26/2015 10:4 4 AM CDT Narrative Procedure Note Ramo Clay MD - 03/27/2015 [facility] [address] [place] [phone] Lower Extremity Venous Ultrasound Report Pat.Name: MARQUIS SHANIA Candy Ricks.ID: [id number] .Date: 03/26/2015 Exam Time: 10:44:00 AM Study Type:LE Venous Age: 10 1945,69Y Sex: FEMALE Sonogrphr: Hillary Roberson RVT, SAMEER Pat. Stat.:Inpatient Room: 642 CPT - 4: 57605 Reason for Study:Preop examination, two hard knots in calf Procedures:Lower Extremity Venous - Left Visit ID: [id number] SUMMARY: There is no evidence of an [...] included. Anatomical Region Laterality Modality Abdomen Radiographic Radha ging 03/25/2015 9:33 AM CDT Impressions 03/25/2015 [...] bowel. Total fluoro time is 37 seconds. Procedure Note [...] ES * GASTRIN (01/21/2015 11:21 AM CDT) Pathologist [facility] Gastrin 26 0 - 115 pg/mL [facility] B[facility] Blood specimen (specimen) BLOOD SPECIMEN / Unknown 01/21/2015 11:21 AM CDT 01/21/2015 3:28 PM CDT Narrative Resulting Agency Comment [address] [phone] Justice Ly MD LAB - CHEMISTRY ORDE DEVANTE [facility] * HELICOBACTER PYLORI UREASE (STL) (05/28/2014 8:54 AM CDT) Pathologist [facility] Helicobacter pylori Urease Initial Negative Negative 05/29/2014 5:15 PM CDT [facility] Helicobacter pylori Urease Final Negative Negative 05/29/2014 5:15 PM CDT [facility] Microbiology GASTRIC ANTRAL BIOPSY SPECIMEN / Unknown 05/28/2014 8:54 AM CDT 05/28/2014 10:49 AM CDT Comment:799.9 Justice Ly MD LAB - MICROBIOLOGY O RDERABLES [facility] [address] [place] [address] * GROSS + MICRO EXAM (STL) (01/08/2014 8:15 AM CDT) Pathologist [facility] Case Report Surgical Pathology Report Case: [id number] -------- Authorizing Provider: Justice Ly MD Ordering Provider: Justice Ly MD [facility] Collected: 01/08/2014 8:15 AM Pathologist: Ish Good MD Received: 01/09/2014 7:54 AM Signed Out: 01/10/2014 10:33 AM (Final) Specimens: A) - Gastric Biopsy B) - Small Bowel Biopsy 01/10/2014 10:33 AM [facility] Final Diagnosis 1. Gastric, biopsies: -- No pathologic diagnosis 2. Small bowel, biopsies: -- No pathologic diagnosis /bulmaro 01/10/2014 10:33 AM [facility] Clinical History COPY TO: Chapis Vásquez MD 01/10/2014 10:33 AM [facility] Gross Description Received in formalin are two containers each labeled, Shania De La Cruz. Container 1 is labeled, gastric biopsy. The [...] cassette labeled B1. DYT/na 01/10/2014 10:33 AM [facility] Microscopic Description The gastric biopsies show gastric antral-type mucosa. No significant inflammation is seen. There is no intestinal metaplasia or dysplasia. H. pylori organisms are not detected by immunohistochem istry. The small bowel biopsies show normal-appearin g small bowel with tall villi and no significant inflammation. /bulmaro 01/10/2014 10:33 AM [facility] Synoptic Report 01/10/2014 10:33 AM CDT [facility] Pathology/Cytology GASTRIC BIOPSY SPECIMEN / Unknown 01/08/2014 8:15 AM CDT 01/09/2014 7:54 AM CDT Miscellaneous samples (specimen) ENTEROTOMY OF SMALL BOWEL FOR BIOPSY / Unknown 01/08/2014 8:15 AM CDT 01/09/2014 7:54 AM CDT Justice Ly MD LAB - PATHOLOGY/CYTO LOGY ORDERABLES [facility] [address] [place] [address] * FOLATE RBC (02/19/2013 3:09 PM CDT) Folate Hemolysate 352.5 Not Estab. ng/mL [facility] INSURANCE BILL Folate RBC 801 499 - 1,504 ng/mL [facility] INSURANCE BILL 02/19/2013 3:09 PM CDT 02/19/2013 7:31 PM CDT Narrative [facility] INSURANCE BILL - 02/25/2013 8:06 PM CDT A courtesy copy of this report has been sent to [phone]. Resulting Agency Comment [address] [phone] Bessy Villa APRN-SCHEDULER LAB - CHEMIS TRY ORDERABLES Performing Organization Address City/[facility] Co de Phone Number [facility] INSURANCE BILL * CLOSTRIDIUM DIFFICILE GDH AG + TOXIN A+B (08/31/2012 8:05 AM MANAGER COLLECTION) GDH Antigen Negative Negative [facility] C difficile Toxin A + B Negative Negative [facility] Interpretation C difficile Negative for Toxigenic C.difficile [facility] Stool specimen (specimen) STOOL SPECIMEN / Unknown 08/31/2012 8:05 AM MANAGER COLLECTION 08/31/2012 8:16 AM MANAGER COLLECTION Narrative [facility] - 08/31/2012 8:37 PM MANAGER COLLECTION Performed By [facility] - [facility] Justice Ly MD LAB - MICROBIOLOGY O RDERABLES [facility] [address] [place] [address] * POTASSIUM BLOOD (08/28/2012 8:05 AM MANAGER COLLECTION) Potassium 3.6 3.5 - 5.1 mmol/L [facility] Blood specimen (specimen) BLOOD SPECIMEN / Unknown 08/28/2012 8:05 AM MANAGER COLLECTION 08/28/2012 8:12 AM MANAGER COLLECTION Justice Ly MD LAB - CHEMISTRY NICOLETTE LOW [facility] [address] [place] [address] * GROSS + MICRO EXAM (10/05/2005 1:28 PM MANAGER COLLECTION) Result CASE NUMBER [id number] Comment: ORDERING PHYSICIAN NGHIA SILVESTRE SPECIMEN TYPE Cyst Date 10/05/2005 Physician Oren Silvestre Gross Description The specimen is received in a Formalin filled container labeled with the patient's name, Shania De La Cruz, and synovial cyst, routine. It consists of multiple irregular light pink ramsey fragments of ligamentous tissue with irregular fragments of soft tissue with blue pink semi- translucent appearance. The entire specimen measurement in aggregate is 2 x 1.2 x 0.5 cm. The specimen is submitted into a single cassette. CN wilcox Microscopic Exam Microscopic examination reveals ligamentous tissue, fibrocollagenous adipose tissue fragments intermixed with a few bony spicules. Some of the fibrocollagenous fragments appear to be membranous type tissue without any overlying lining epithelium. Nerve fragments are not seen. Inflammation, granulomas or malignancy is not seen. SR/bk Diagnosis I. Soft tissue, L3, excision -- Changes suggestive of synovial cyst. -- No evidence of malignancy. SR/bk Station Captain bk Pathologist Carmen Rosa M.D. [place]. 10/06/2005 1031 <1> CPT code 04131 MISCELLANEOUS SAMPLES / Unknown 10/05/2005 1:28 PM MANAGER COLLECTION 10/05/2005 1:28 PM MANAGER COLLECTION Historical Provider LAB - PATHOLOGY/C YTOLOGY ORDERABLES Care Teams Rug Dyer Helper Relationship Specialty Start Date End Date Luz Tobias APRN-SCHEDULER [address] [id number] PCP - General Nurse Practitioner 02/04/17 Melissa Herman, NATALIE Beater Engineer Helper 03/25/15
--- OUTSIDE RECORDS SUMMARY | 2024-11-20 12:52 | XMS_ITS | Clinical Summary ---
Author Organization [facility] Address [address] [place] [id number] Phone Care Team Providers Care Instrumentation Technician Name Role Phone Isai Marin MD Primary Care Provider [phone] Allergies Active Allergy Reactions Criticality Noted Date [...] MCG/ML injection 12/17/2013 Active ergocalciferol (VITAMIN D-2) 86453 units capsule 1 weekly 06/29/2012 Active Multiple [...] Comments Blood Pressure 124/78 08/16/2022 3:09 PM CHEMOTHERAPIST Pulse 72 08/16/2022 3:09 PM CHEMOTHERAPIST Temperature 36 C (96.8 F) 08/16/2022 3:09 PM CHEMOTHERAPIST Respiratory Rate - - Oxygen Saturation - - Inhaled Oxygen Concentration - - Weight 99.3 kg (219 lb) 08/16/2022 3:09 PM CHEMOTHERAPIST Height 162.6 cm (5' 4 ) 08/16/2022 3:09 PM CHEMOTHERAPIST Body Mass Index 37.59 08/16/2022 3:09 PM CHEMOTHERAPIST Plan of Treatment Health Maintenance Due Date Last Done Comments Diabetic Foot Exam 1955 Ophthalmology Exam 1955 Pneumococcal PPSV23/PCV13 65 + Years / High and Highest Risk (3 of 4 - PPSV23 or PCV20) 05/19/2014 11/06/2012, 05/19/2009 COVID-19 Vaccine (2023-2 5 season) 2024 05/24/2022, 07/07/2021, 10/31/2020, Additional history exists Influenza Vaccine (#1) 2024 , 04/16/2015, 06/10/2013 Care Teams Instrumentation Technician Relationship Specialty Start Date End Date Isai Marin MD [facility] [place] [id number] PCP - General Family Medicine 08/16/22
[2024-11-25 09:58] LABS: Vitamin A 59 mcg/dL (38-98)
[2024-11-25 13:24] LABS: Vitamin D 1,25 (OH)2 Total 42 pg/mL (18-72); Vitamin D2 1,25 (OH)2 42 pg/mL; Vitamin D3 1,25 (OH)2 <8 pg/mL
[2024-11-25 16:08] LABS: Angiotensin Converting Enzyme <5 U/L (9-67)
== END 2024-11-20 10:58 | disposition home or self-care (01) ==
PROVIDERS: PCP Nurse Practitioner Family; Visit Provider Internal Medicine Nephrology
DX: N18.31 Chronic kidney disease, stage 3a (principal); E83.52 Hypercalcemia
CPT/HCPCS: 36415; 80069; 82164; 82306; 82570; 82652; 83519; 83970; 84156; 84590; 85027

== ENCOUNTER 2024-12-04 11:14 | Outpatient (CLI) | payer MEDICARE, OTHER, SELFPAY ==
--- OUTSIDE RECORDS SUMMARY | 2024-12-04 12:27 | XMS_ITS | Referral Summary ---
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
--- OUTSIDE RECORDS SUMMARY | 2024-12-04 12:27 | XMS_ITS | Data Portability ---
Author Organization [place] [facility] Way[address], Main Office Address [address] [place] [address] Care Team Providers Care Shift Production Associate Name Role Phone ROMMEL BRADY Primary Care Provider [phone] ROMMEL BRADY Referring Provider Assessment Encounter Date [...] rapid flu (A+B) 2023 024 sonia [address]eep Deutsch, [place], [address], 10:29:17 rsv (respirator y syncytial virus), rapid, nasopharyng eal 2023 [facility] [address], [place], [address], 10:29:15 Referral None recorded. Procedures injection/a spiration joint/bursa (PROC) 2023 024 [email or web address] In-Office Order, Internal Use Only DO Not Attach Compendium DO Not Attach Compendium, Do Not Delete/merge, [id number] 09/09/202 4 10:06:20 injection/a spiration joint/bursa (PROC) 2023 024 [email or web address] In-Office Order, Internal Use Only DO Not Attach Compendium DO Not Attach Compendium, Do Not Delete/merge, [id number] 4 09:38:11 injection/a spiration joint/bursa (PROC) 2023 024 [email or web address] In-Office Order, Internal Use Only DO Not Attach Compendium DO Not Attach Compendium, Do Not Delete/merge, [id number] 4 13:52:22 injection/a spiration joint/bursa (PROC) 2023 024 [email or web address] In-Office Order, Internal Use Only DO Not Attach Compendium DO Not Attach Compendium, Do Not Delete/merge, [id number] 4 13:52:22 injection/a spiration joint/bursa (PROC) - in office procedure, administere d by provider 2023 024 [email or web address] In-Office Order, Internal Use Only DO Not Attach Compendium DO Not Attach Compendium, Do Not Delete/merge, 4 10:35:26 Surgeries None recorded. Imaging XR, chest, 2 view 2023 024 [email or web address] 2 [facility], [address] [place] [address] , [place], [address], 4 08:46:50 XR, hand 2023 024 [email or web address] [facility] [place], [address] [facility] [address], [place], [address], 4 11:17:19 Medication Orders bupivacaine HCl 0.5 % (5 mg/mL) injection solution 2023 024 [email or web address] [facility], [address], [place], [address], 4 11:14:21 Kenalog 10 mg/mL suspension for injection [address] [facility], [address], [place], [address], 4 11:14:21 bupivacaine HCl 0.5 % (5 mg/mL) injection solution [address] [facility], [address] [place], [address], 4 09:48:52 Kenalog 10 mg/mL suspension for injection [address] [facility], [address] [place], [address], 4 09:48:52 bupivacaine HCl 0.5 % (5 mg/mL) injection solution [address] [place] [address] Pharmacy 4878, [address] [place], [address], 4 14:34:16 Kenalog 10 mg/mL suspension for injection [address] [place] [address] Pharmacy 4878, [address] [place], [address], 4 14:34:16 bupivacaine HCl 0.5 % (5 mg/mL) injection solution [address] [facility], [address] [place], [address], 4 14:34:16 Kenalog 10 mg/mL suspension for injection [address] [place] [address] Pharmacy 4878, [address] [place], [address], 4 14:34:16 celecoxib 100 mg capsule [address] [facility], [address] [place], [place], [address], 4 14:34:16 levofloxaci n 750 mg tablet 2023 024 [facility], [address], [place], [place], [address], 4 12:38:30 promethazin e-DM 6.25 mg-15 mg/5 mL oral syrup 2023 024 [facility]878, [address], [place], [address], 4 12:39:06 Atrovent HFA 17 mcg/actuati on aerosol inhaler [email or web address] [facility] 4[facility], [address], [place], [place], [address], 4 12:39:38 Kenalog 10 mg/mL suspension for injection [address] [facility], [address], [place], [place], [address], 4 11:25:07 bupivacaine (PF) 0.25 % (2.5 mg/mL) injection solution [address] [facility] 4[facility], [address], [place], [place], [address], 4 11:25:07 prednisone 10 mg tablets in a dose pack [email or web address] [address], Desiree [place], [place], [address], 4 12:26:58 Patient TargetsNo targets recorded. Patient Instructions Encounter Date Encounter Id Patient Instructions Last Modified By Organization Details Last Modified Time 01/01/2024 [id number] Advised getting a Covid test Not available 01/09/2024 10:28:25 Reason for Referral None Reported. Results Created Date Observation Date Name Description Value Unit Range Abnormal Flag Note LastModifiedBy Organization Detail LastModifiedTime 01/01/20 24 01/01/2024 rsv (resp irato ry syncy tial virus ), rapid , nasop haryn geal RSV negati ve Not Available [address]eep Deutsch, [place], [address], 01/01/2024 12:48:45 01/01/20 24 01/01/2024 rapid flu (A+B) Flu A negati ve Not Available [address]eep [place], [place], [address], 01/01/2024 12:48:38 01/01/20 24 01/01/2024 rapid flu (A+B) Flu B negati ve Not Available [address] [place], [place], [address], 01/01/2024 12:48:38 12/17/19 24 XR, hand No observ ation record ed. [email or web address] [facility] [address], [place], [address], 12/17/2023 10:47:27 01/01/20 24 01/01/2024 XR, chest , 2 view No observ ation record ed. [email or web address] [place] [address] [address] [facility], [place], [address], 05/20/2024 11:23:53 Result Notes None recorded. 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 11598706050 30967 Active 2020 Not Available [facility] 3 13:10:47 History of total knee arthropla sty 18068823148 05 Active 2020 Not Available [facility] 3 13:10:47 Pain in right sacroilia c joint 51663447696 256267 Active 2021 Not Available [facility] 3 13:10:47 Injury of hand 829250410 Completed Not Available [facility] 3 08:09:56 Abscess 417711811 Completed Not Available [facility] 3 08:09:56 Folliculi tis 43332557 Completed Not Available [facility] 3 08:09:56 Disorder of thyroid gland 28767215 Active Not Available [facility] 3 13:10:47 Acute sinusitis 18021885 Completed Not Available [facility] 3 08:09:56 History of artificia l joint 126656497 Active 2021 Not Available [facility] 3 13:10:47 Spinal stenosis of lumbar region 50801562 Active 2020 Not Available [facility] 3 13:10:47 Foot callus 532513338 Completed Not Available [facility] 3 08:09:56 Tooth disorder 309300586 Completed Not Available [facility] 3 08:09:57 Post-surg ical malabsorp tion 648061002 Active Not Available [facility] 3 13:10:47 Edema 405284053 Completed Not Available [facility] 3 08:09:57 Right upper quadrant pain 552929049 Completed Not Available [facility] 3 08:09:57 Vitamin D deficienc y 56643398 Active Not Available [facility] 3 13:10:47 Primary hyperpara thyroidis m 27008762 Active 2021 Not Available [facility] 3 13:10:47 Arthritis 6372106 Active 2021 Not Available [facility] 3 13:10:47 Disorder of vitamin B12 616276328 Active 2021 Not Available [facility] 3 13:10:47 Menorrhag ia 324658690 Completed Not Available [facility] 3 08:09:57 Disorder of gallbladd er 78263507 Active Not Available [facility] 3 13:10:47 Gastric ulcer 267387438 Active Not Available [facility] 3 13:10:47 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 Not Available [facility] 3 13:10:47 Vitamin B deficienc y 49310783 Active Not Available [facility] 3 13:10:47 Anxiety 10420675 Active Not Available [facility] 3 13:10:47 Upper respirato ry infection 32886294 Completed Not Available [facility] 3 08:09:58 Pain in wrist 17668037 Completed Not Available [facility] 3 08:09:58 Cyst of Bartholin 's gland duct 90222258 Active Not Available [facility] 3 13:10:47 Diarrhea 86831197 Completed Not Available [facility] 3 08:09:58 Osteoporo sis 25921074 Active 2019 Not Available [facility] 3 13:10:47 Nasal congestio n 76662503 Completed Not Available [facility] 3 08:09:58 Decreased renal function 21840398 Active 2021 Not Available [facility] 3 13:10:47 Candidias is 14910294 Active 2016 Not Available [facility] 3 13:10:47 Cardiomeg vladislav 1049045 Active 2019 Not Available [facility] 3 13:10:47 Perniciou s anemia 58552785 Active Not Available [facility] 3 13:10:47 COVID-19 629238112 Active 2019 Not Available [facility] 3 13:10:47 Cobalamin deficienc y 379010722 Active 03/02/ 2023 Not Available [facility] 3 13:10:47 Pain in right hip joint 16880025112 9102 Active 2022 Not Available [facility] 3 13:10:47 Essential hypertens ion 85340217 Active 2022 Not Available [facility] 3 13:10:47 Cramp in lower limb 335600765 Active 2022 Not Available [facility] 3 13:10:47 Intoleran t of cold 85531916 Active 2022 Not Available [facility] 3 13:10:47 Anemia 134343044 Active 2022 Not Available [facility] 3 13:10:47 Acquired bilateral pes planus 12352179447 478350 Active 2022 JORDAN Stovall, [facility] 3 14:29:22 Eruption 241352701 Active 2022 Isai Marin MD [address], [address], [place], [address] , [facility] 3 11:25:07 Osteoarth ritis 838787976 Active 2022 Isai Marin MD [address], [address], [place], [address] , [facility] 3 11:40:33 Skin lesion 02559200 Active 2022 Isai Marin MD [address], [place], [address] , [facility] 3 11:43:22 Acid reflux 948463793 Active 2022 Isai Marin MD [address], [place], [address] , [facility] 3 08:24:33 Acute upper respirato ry infection 91644600 Active 2023 CHANTEL Olson [address], [place], [address] , [facility] [employer] [facility] 4 09:41:55 Pain of left hand 19490417118 9103 Active 2023 Giuliana Ivan DORENEAdrian null, [facility] [employer] [facility] 4 10:10:18 Localized , primary osteoarth ritis of the wrist 943922607 Active 2023 CHANTEL Calero [address], [address], [place], [address] , [facility] [employer] [facility] 4 10:44:24 Osteoarth rosis of the carpometa carpal joint of the thumb 38908845 Active 2023 CHANTEL Calero [address], [address], [place], [address] , [facility] [employer] [facility] 4 10:44:50 Localized , primary osteoarth ritis of the wrist 703387761 Active 2023 CHANTEL Calero [address], [address], [place], [address] , [facility] [employer] [facility] 4 10:45:19 Acute bronchiti s 48922100 Active 2023 CHANTEL Olson [address], [address], [place], [address] , [facility] [employer] [facility] 4 12:35:06 Lesion of skin of nose 76642691997 583680 Active 2023 CHANTEL Olson [address], [address], [place], [address] , [facility] [facility] 4 12:41:52 Problem Notes None recorded. Procedures Surgical History Date Name Laterality Status Provider Name and Address Organization Details Recorded Time Foot Surgery completed Not Available [facility] 11/08/2022 08:06:46 Knee Replacement completed Not Available [facility] 11/08/2022 08:06:46 operation on hip joint completed Not Available [facility] 11/08/2022 08:06:46 tonsilectomy/yancy oids completed Not Available [facility] 11/08/2022 08:06:46 Appendectomy completed Not Available [facility] 11/08/2022 08:06:46 Hysterectomy completed Not Available [facility] 11/08/2022 08:06:46 Gastric Bypass completed Not Available [facility] 11/08/2022 08:06:46 Imaging Results Imaging Date Name Status LastModified by Organiz ation Details LastModified Time 12/17/2023 XR, hand completed [email or web address] [facility] [place] [address], [place], [address], 12/17/2023 10:47:27 01/01/2024 XR, chest, 2 view completed [email or web address] [place], [address], 05/20/2024 11:23:53 Procedure Notes None recorded. Medical Equipment None Reported. Allergies Allergen ID Allergen Name Allergen Category Reaction Reaction Severity Criticality Documentation Date Start Date Code Code System Note Provider Name and Address Organization Details Recorded Time Product containin g penicilli n (product) medicatio n Not available Not available Not available 11/08/2022 65538 8001 SNOMED Not Available [facility] 3 08:14:13 codeine medicatio n Not available Not available Not available 11/08/2022 2670 RxNorm Not Available [facility] 3 08:14:13 Medications Name Sig Start Date [...] STATES TAKES 2 DAILYExt ernal note: DR. DUÁRN PRESCRIB ES Not Available Not Available Not [...] mg by injectio n route. 2023 active [facility]: 0003-049 4-20 Not Available Not Available Not [...] mg/mL) injection solution in office 2023 active [facility]:5515 0-168-30 Not Available Not Available Not Available [...] completed Not Available Not Available Not Available [facility] 100,000 unit/gram topical powder APPLY TO THE [...] Not Available Not Available Not Available Fluad 65yr up(PF)45 mcg(15 mcgx3)/0. 5 mL intramusc [...] 3 157.48 cm 157.48 cm 39.9 kg/m2 52910.1 4 g 96.7 [degF] 69 /min 97 % 97 % 116 mm[Hg] 78 mm[Hg] Glory gaines CMA [facility] 3 11:23:55 Date Recorded Body height Body mass index (BMI) Body weight Provider Name and Address Organization Details Last Updated DateTime 12/17/2023 162.56 cm 34.3 kg/m2 61922.47 g Giuliana Ivan [facility] [employer] [facility] 12/17/2023 10:09:08 Date Recorded Body height Body mass index (BMI) Body weight Body temperature Respiratory rate Heart rate Oxygen saturation Oxygen saturation in Arterial blood by Pulse oximetry Systolic blood pressure Diastolic blood pressure Provider Name and Address Organization Details Last Updated DateTime 162.56 cm 34.8 kg/m2 05802.2 5 g 98.6 [degF] 16 /min 52 /min 94 % 94 % 114 mm[Hg] 70 mm[Hg] Anisha Peace RN [facility] [employer] [facility] 12:30:33 Date Recorded Body height Body mass index (BMI) Body weight Provider Name and Address Organization Details Last Updated DateTime 02/07/2024 162.56 cm 34.3 kg/m2 13394.47 g Annabella Naylor CNA [facility] [employer] [facility] 02/07/2024 13:25:11 Date Recorded Body height Provider Name an d Address Organization Details Last Updated DateTime 05/19/2024 162.56 cm Tiki Monet [facility] [employer] [facility] 05/19/2024 09:35:53 Social History Question Answer Notes LastModified by Organizat ion Details LastModified Time Tobacco Smoking Status Never Smoker Not Available [facility] 11/08/2022 08:06:35 What Is Your Level Of Alcohol Consumption? Occasional [id number] Information not available 11/08/2022 What Is Your Level Of Caffeine Consumption? Moderate [id number] Information not available 11/08/2022 In The 14 Days Before Symptom Onset, Have You Had Close Contact With A Laboratory-confirm ed COVID-19 While That Case Was Ill? No [id number] Information not available 11/08/2022 In The 14 Days Before Symptom Onset, Have You Had Close Contact With A Person Who Is Under Investigation For COVID-19 While That Person Was Ill? No [id number] Information not available 11/08/2022 Which Illicit Or Recreational Drugs Have You Used? No [id number] Information not available 11/08/2022 Sex: Female Functional Status None recorded. Mental Status None recorded. Family History Relationship Description Onset Age of this Age Resolved Age Notes LastModified by Organization Details LastModified Time Father Heart disease [id number] Not available 11/08/2022 08:06:48 Mother Hypertensive disorder [id number] Not available 11/08/2022 08:06:48 Mother Alzheimer's disease [id number] Not available 11/08/2022 08:06:48 Medical History Condition Response ARTHRITIS Y EYE PROBLEMS Y HEADACHES/MIGRAINES Y OBESITY Y GI PROBLEMS Y ANEMIA/BLOOD DISORDER Y GERD/NAUSEA Y SKIN PROBLEMS KIDNEY DISEASE Y HYPERTENSION Y Gynecological HistoryNo gynecological history recorded. Obstetrics History GPAL:G 0 P 0 0 0 0 Immunizations Vaccine Type Date Status Note Provider Nam e and Address Organization Details Recorded Time Influenza, split virus, trivalent, preservative 3 completed Glory Munoz CMA null, [facility] 05/11/2023 11:25:57 Influenza, MDCK, quadrivalent, PF 2 completed [facility]23 11:25:56 COVID-19, mRNA, LNP-S, PF, 30 mcg/0.3 mL dose 2 completed [facility] 05/11/2023 11:25:57 COVID-19, mRNA, LNP-S, PF, 100 mcg/0.5mL dose or 50 mcg/0.25mL dose 1 completed Glory Munoz CMA null, [facility] 05/11/2023 11:25:57 Influenza, split virus, quadrivalent, preservative 1 completed Glory Munoz CMA null, [facility] 05/11/2023 11:25:56 COVID-19, mRNA, LNP-S, PF, 100 mcg/0.5mL dose or 50 mcg/0.25mL dose 1 completed Glory Munoz CMA null, [facility] 05/11/2023 11:25:57 COVID-19, mRNA, LNP-S, PF, 100 mcg/0.5mL dose or 50 mcg/0.25mL dose 1 completed JORDAN Romero, [facility] 05/11/2023 11:25:57 Influenza, split virus, quadrivalent, preservative 0 completed JORDAN Romero, [facility] 05/11/2023 11:25:56 Influenza, split virus, quadrivalent, preservative 9 completed Not Available [facility] 02/12/2023 13:10:49 Influenza, split virus, quadrivalent, preservative 8 completed JORDAN Romero, [facility] 05/11/2023 11:25:56 Influenza, split virus, quadrivalent, preservative 7 completed Not Available [facility] 02/12/2023 13:10:49 Influenza, high-dose, trivalent, PF 6 completed JORDAN Romero, [facility] 05/11/2023 11:25:57 Influenza, split virus, trivalent, preservative 5 completed Not Available [facility] 02/12/2023 13:10:49 Pneumococcal conjugate PCV 13 3 completed Not Available [facility] 02/12/2023 13:10:49 zoster live 2 completed JORDAN Romero, [facility] 05/11/2023 11:25:57 pneumococcal polysaccharide PPV23 9 completed Not Available [facility] 02/12/2023 13:10:49 Past Encounters Encounter ID Performer Location Encounter Start Date Encounter Closed Date Diagnosis/Indication Diagnosis SNOMED-CT Code Diagnosis ICD10 Code Diagnosis Note [id number] [facility] [place] [address] 11/17/2020 00:00:00 11/17/2020 11:39:36 [id number] [facility] [place] [address] 12/20/2020 00:00:00 12/20/2020 09:34:40 [id number] [facility] [place] [address] , [place] [address] 01/13/2021 00:00:00 01/13/2021 13:29:43 [id number] [facility] [place] [address] , [place] [address] 02/17/2021 00:00:00 02/17/2021 13:19:54 [id number] [facility] [place] [address] [place] [address] 03/02/2021 00:00:00 03/03/2021 06:59:44 [id number] [facility] [place] [address] [place] [address] 03/16/2021 00:00:00 03/16/2021 13:56:11 [id number] [facility] [place] [address] [place] [address] 03/28/2021 00:00:00 03/28/2021 16:15:53 [id number] [facility] [place] [address] [place] [address] 04/14/2021 00:00:00 04/14/2021 11:46:05 [id number] [facility] [place] [address] [place] [address] 04/15/2021 00:00:00 04/16/2021 09:33:31 [id number] [facility] [place] [address] [place] [address] 04/28/2021 00:00:00 04/28/2021 11:27:49 [id number] [facility] [place] [address] [place] [address] 05/18/2021 00:00:00 05/18/2021 11:55:29 [id number] [facility] [place] [address] , [place] [address] 06/15/2021 00:00:00 06/15/2021 14:28:12 [id number] [facility] [place] [address] , [place] [address] 07/15/2021 00:00:00 07/29/2021 17:19:49 [id number] [facility] [place] [address] , [place] [address] 08/12/2021 00:00:00 08/15/2021 09:48:41 [id number] [facility] [place] [address] , [place] [address] 09/14/2021 00:00:00 09/14/2021 11:52:04 [id number] [facility] [place] [address] [place] [address] 09/15/2021 00:00:00 09/15/2021 11:45:49 [id number] [facility] [place] [address] [place] [address] [place] [address] 10/11/2021 00:00:00 10/11/2021 10:43:49 [id number] [facility] [place] [address] , [place] [address] 11/10/2021 00:00:00 11/10/2021 12:54:44 [id number] [facility] [place] [address] [place] [address] 11/11/2021 00:00:00 11/13/2021 17:39:45 [id number] [facility] [place] [address] [place] [address] 12/09/2021 00:00:00 12/09/2021 12:08:30 [id number] [facility] [place] [address] , [place] [address] 12/13/2021 00:00:00 12/14/2021 08:46:55 [id number] [facility] [place] [address] [place] [address] 01/02/2022 00:00:00 01/02/2022 15:08:53 [id number] [facility] [place] [address] , [place] [address] 01/10/2022 00:00:00 01/10/2022 13:44:03 [id number] [facility] [place] [address] [place] [address] 02/03/2022 00:00:00 02/03/2022 12:16:16 [id number] [facility] [place] [address] [place] [address] 02/07/2022 00:00:00 02/07/2022 18:18:03 [id number] [facility] [place] [address] , [place] [address] 02/09/2022 00:00:00 02/09/2022 18:23:28 [id number] [facility] [place] [address] [place] [address] 03/10/2022 00:00:00 03/10/2022 13:00:11 [id number] [facility] [place] [address] [facility] [place] [address] 04/12/2022 00:00:00 04/12/2022 11:01:55 [id number] [facility] [place] [address] [place] [address] 05/11/2022 00:00:00 05/11/2022 11:01:41 [id number] [facility] [place] [address] , [place] [address] 06/12/2022 00:00:00 06/12/2022 12:51:16 [id number] [facility] [place] [address] , [place] [address] 07/11/2022 00:00:00 07/11/2022 11:26:30 [id number] [facility] [place] [address] [place] [address] y , [place] [address] 08/10/2022 00:00:00 08/10/2022 12:50:41 [id number] [facility] [place] [address] [facility] y , [place] [address] 09/12/2022 00:00:00 09/12/2022 20:47:25 [id number] [facility] [place] [address] [place] [address] y , [place] [address] 10/11/2022 00:00:00 10/16/2022 15:02:11 [id number] Isai Marin MD [facility] [place] [address] [place] [address] y , [place] [address] 11/09/2022 10:25:17 11/09/2022 11:11:29 Cobalamin deficiency [id number] E53.8 [id number] CHANTEL Brantley [facility] [place] [address] [place] [address] 11/29/2022 10:18:25 11/29/2022 11:21:19 Pain in right hip joint [id number] 30774 M25.551 [id number] Isai Marin MD [facility] [place] [address] [facility] y , [place] [address] 12/13/2022 10:48:56 12/13/2022 15:27:57 Cobalamin deficiency 591419881 E53.8 [id number] CHANTEL Olson [facility] [place] [address] [place] [address] 01/10/2023 11:06:46 01/10/2023 11:32:23 Cobalamin deficiency 825077941 E53.8 [id number] Isai Marin MD [facility] [place] [facility] [address] 01/29/2023 14:25:27 01/29/2023 15:16:35 Cramp in lower limb [id number] R25.2 History of bypass of stomach 894927261 Z98.84 Intolerant of cold 06838 000 R68.89 [id number] Isai Marin MD [facility] [place] [facility] [place] [address] 02/09/2023 10:59:31 02/27/2023 12:18:14 [id number] Isai Marin MD [facility] [place] [facility] [place] [address] 03/12/2023 10:56:25 03/12/2023 11:23:00 Cobalamin deficiency 482291146 E53.8 [id number] Isai Marin MD [facility] [place] [facility] [place] [address] 04/12/2023 10:22:44 05/04/2023 14:25:05 Cobalamin deficiency 430597342 E53.8 [id number] Isai Marin MD [facility] [place] [facility] [place] [address] 05/11/2023 10:34:52 05/11/2023 10:55:44 [id number] Isai Marin MD [facility] [place] [facility] [place] [address] 05/11/2023 10:57:31 05/11/2023 11:50:27 Osteoarthritis 278321784 M19.90 For filled out for disability Skin lesion 37852469 L98 .9 Apply JACEY and cover. [id number] CHANTEL Calero [facility] [place] [address] [place] [address] 12/17/2023 09:53:26 12/17/2023 11:17:18 Pain of left hand 8708015106 03235 M79.642 Localized, primary osteoarthritis of the wrist 553098428 M19.032 Osteoarthr osis of the carpometacarpal joint of the thumb 35413551 M18.12 [id number] CHANTEL Olson [facility] [address] , [place] [address] 01/01/2024 12:06:55 01/01/2024 12:53:32 Acute bronchitis 88087627 J20.9 [id number] CHANTEL Calero [facility] [place] [address] [place] [address] 02/07/2024 13:05:14 02/07/2024 13:56:29 Localized, primary osteoarthritis of the wrist 454304655 M19.032 Pain of left hand 503491 4286 08462 M79.642 Osteoarthr osis of the carpometacarpal joint of the thumb 92306149 M18.12 [id number] CHANTEL Calero [facility] [place] [address] [place] [address] 05/19/2024 09:24:06 05/19/2024 10:26:18 Pain of left hand 8752341765 01856 M79.642 Osteoarthr osis of the carpometacarpal joint of the thumb 89836373 M18.12 Localized, primary osteoarthritis of the wrist 460937909 M19.032 Health Concerns Section Related Observation LastModified by Organization Detai ls LastModified Time None Recorded Concern Status LastModified by Organization Details LastModified Time None Recorded Advance Directives Directive None Recorded Payers Encounter Date Sequence Insurance Name Policy Number Policy Ellington Covered Member ID Ellington Member ID Guarantor Name 05/11/2023 1 [place] Shania Gupta Hemann [id number] Shania L Hemann 05/11/2023 2 [employer] [place] (MEDICARE SUPPLEMENT) Shania L Hemann [id number] Shania L Hemann 12/17/2023 1 [place] Shania L Hemann [id number] Shania L Hemann 12/17/2023 2 [employer] [place] (MEDICARE SUPPLEMENT) Shania L Hemann [id number] Shania L Hemann 01/01/2024 1 [place] Shania L Hemann [id number] Shania L Hemann 01/01/2024 2 [employer] [place] (MEDICARE SUPPLEMENT) Shania L Hemann [id number] Shania L Hemann 02/07/2024 1 [place] Shania L Hemann [id number] Shania L Hemann 02/07/2024 2 [employer] [place] (MEDICARE SUPPLEMENT) Shania L Hemann [id number] Shania L Hemann 05/19/2024 1 [place] Shania L Hemann [id number] Shania L Hemann 05/19/2024 2 [employer] [place] (MEDICARE SUPPLEMENT) Shania L Hemann [id number] Shania L Hemann Notes Date Note Type Note Provider Name and Address Organization Details Recorded Time 05/11/2023 text/html Here today Isai Marin MD [address] [place] [address], [place] [address], [place], [address], [facility] 05/11/2023 20:39:57 05/11/2023 text/html Here today for 4 month check up. Needs disability form filled out. Has hip pains and knee pains. Has a fever blister using abrevia on it. It is almost gone. Isai Marin MD [address], [address], [place], [address], [facility] [employer] 05/11/2023 20:39:28 12/17/2023 text/html Patient returns with complaints of left wrist and basilar thumb pain. This has been an ongoing problem for many years. Occasionally she will get severe flares of pain that caused her hand to swell. She comes in today with some [id number] swelling throughout the hand and wrist no [...] wrist and thumb pain she can not receiving checker or pinch and has some stiffness chronic [...] today with the patient. CHANTEL Calero [address], [address], [place], [address], [facility] 12/17/2023 10:50:38 01/01/2024 text/html no better after a zpak , no fever CHANTEL Olson [address], [address], [place], [address], [place] [facility] [employer] 01/09/2024 10:29:20 02/07/2024 text/html Patient returns she [...] lot of pain. CHANTEL Calero [address], [address], [place], [address], [employer] 02/07/2024 14:08:33 05/19/2024 text/html The patient retu [...] not do anything heavy repetitive trying to receiving checker pinch or grasp anything causes her significant [...] this again today. CHANTEL Calero [address], [place], [address], [employer] 05/19/2024 10:15:04 OBGyn Episode No OBEpisode recorded.
--- OUTSIDE RECORDS SUMMARY | 2024-12-04 12:28 | XMS_ITS | Clinical Summary ---
Author Organization [facility] Address [address] [place] [address] Phone Care Team Providers Care Counter Professional Name Role Phone Isai Marin MD Primary Care Provider [phone] Allergies Active Allergy Reactions Criticality Noted Date [...] MCG/ML injection 12/17/2013 Active ergocalciferol (VITAMIN D-2) 23362 units capsule 1 weekly 06/29/2012 Active Multiple [...] Comments Blood Pressure 124/78 08/16/2022 3:09 PM TIE FASTENER Pulse 72 08/16/2022 3:09 PM TIE FASTENER Temperature 36 C (96.8 F) 08/16/2022 3:09 PM TIE FASTENER Respiratory Rate - - Oxygen Saturation - - Inhaled Oxygen Concentration - - Weight 99.3 kg (219 lb) 08/16/2022 3:09 PM TIE FASTENER Height 162.6 cm (5' 4 ) 08/16/2022 3:09 PM TIE FASTENER Body Mass Index 37.59 08/16/2022 3:09 PM TIE FASTENER Plan of Treatment Health Maintenance Due Date Last Done Comments Diabetic Foot Exam 1955 Ophthalmology Exam 1955 Pneumococcal PPSV23/PCV13 65 + Years / High and Highest Risk (3 of 4 - PPSV23 or PCV20) 05/19/2014 11/06/2012, 05/19/2009 COVID-19 Vaccine (2023-2 5 season) 2024 05/24/2022, 07/07/2021, 10/31/2020, Additional history exists Influenza Vaccine (#1) 2024 , 04/16/2015, 06/10/2013 Care Teams Counter Professional Relationship Specialty Start Date End Date Isai Marin MD [facility] [place] [id number] PCP - General Family Medicine 08/16/22
--- OUTSIDE RECORDS SUMMARY | 2024-12-04 12:28 | XMS_ITS | Clinical Summary ---
Author Organization [facility] [employer] Address [address] [facility] [place] [address] Care Team Providers Care Geological Drafter Name Role Phone Melissa Herman RN Unavailable [phone] Luz Tobias SEWER PIPE LAYER-HAND THERMAL CUTTER Primary Care Provider + Source Comments [facility],non-owned Affiliates and Associated Physician Practices is amultiple site organization consisting of ambulatory clinics and hospital sitesin [place], [place], [place] and [place]. This disclosure is being madepursuant to the Care Everywhere program and may not contain all information available regarding this patient. Last updated 18.[facility] [employer] Allergies Active Allergy Reactions Criticality Noted Date [...] (CALCIUM TOTAL) AM Draw 10/27/2017 5:22 AM MANAGER MEETING from Last 3 Months or Most Recently Relevant to Health Maintenance Results * (ABNORMAL) BASIC METABOLIC PANEL (CALCIUM TOTAL) (10/27/2017 5:22 AM MANAGER MEETING) Glucose 84 74 - 106 mg/dL 10/27/2017 5:52 AM [facility] Sodium 140 136 - 145 mmol/L 10/27/2017 5:52 AM [facility] Potassium 3.4(L) 3.5 - 5.1 mmol/L 10/27/2017 5:52 AM [facility] Chloride 106 98 - 107 mmol/L 10/27/2017 5:52 AM [facility] CO2 29 22 - 31 mmol/L 10/27/2017 5:52 AM [facility] Calcium 9.1 8.5 - 10.1 mg/dL 10/27/2017 5:52 AM [facility] Anion Gap 5(L) 8 - 16 mmol/L 10/27/2017 5:52 AM [facility] BUN 20 7 - 21 mg/dL 10/27/2017 5:52 AM [facility] Creatinine 0.75 0.50 - 1.30 mg/dL 10/27/2017 5:52 AM [facility] eGFR by MDRD >60 mL/min/1.7 3m2 10/27/2017 5:52 AM MANAGER MEETING [facility] eGFR by MDRD >60 mL/min/1.7 3m2 10/27/2017 5:52 AM MANAGER MEETING [facility] Blood BLOOD SPECIMEN / Unknown Venipuncture / Unknown 10/27/2017 5:22 AM MANAGER MEETING 10/27/2017 5:28 AM MANAGER MEETING Kwame Dinero MD LAB - [facility] [address] [place] [address] from Last 3 Months or Most Recently Relevant to Health Maintenance Advance Directives Documents on File Type Date 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
--- OUTSIDE RECORDS SUMMARY | 2024-12-04 12:28 | XMS_ITS | Continuity of Care Document ---
Author Organization [facility] Address [address] [place] [address] Phone Care Team Providers Care Intern Product Marketing Manager Name Role Phone Shahla Guillen Unavailable Unavailable Procedures Procedure Date Eye Exam & Treatment Eye Exam & Treatment Progressive Lens, Plastic Vision Svcs Frames Purchases Tax - Medical Eye Exam, New Patient Refraction Advance Directives Directive Yes / No Effective Date File Name No Information Encounters Encounter Description Practice Location Reason(s) For Visit Diagnoses Date Provider Providers Copied on Encounter [facility], [address] [place] [address] [address], [place], [place], [id number], tel:[phone] [facility] No Information 5-201 0 Mindy Gale. [address] [facility] [place] , [address], [place], [place], [facility], . tel:[phone] [facility], [address] [place] [address] [address], [place], [place], [id number], [place] tel:[phone] [facility] No Information [address] Brittany Carroll. [address] [facility] [address], [place], [place], [facility], . tel:[phone] [facility], [address], [place], [place], [address], [place] tel:[phone] [facility] No Information 8 [facility] [employer]. [address] [facility], [address], [place], [place], [address], [place]. tel:[phone] Referring Provider: Glen granados, [address], [address]. tel:[phone] sulting Provider: Rani Barillas, [address] [place], [address]. tel:[phone] [facility], [address] [facility] [address], [place], [place], [address], [place] tel:[phone] [facility] No Information 8 Brittany Carroll. [address], [address], [place]. tel:[phone] Family History Family Member Type Diagnosis Age [...]
--- OUTSIDE RECORDS SUMMARY | 2024-12-04 12:28 | XMS_ITS | Clinical Summary ---
Author Organization [facility] [address] Address [address] [place] [address] Care Team Providers Care Wireworker Name Role Phone Luz Tobias NP Primary Care Provider [phone] Allergies Active Allergy Reactions Criticality Noted Date [...] on file Legal Sex Female 1:03 AM RN CLINICAL REVIEW Gender Identity Not on file Sexual Orientation [...] Maintenance Insurance MEDICARE [employer] Care Teams Wireworker Relationship Specialty Start Date End Date Luz Tobias NP PCP - General Nurse Practitioner 08/17/20
[2024-12-05 15:37] LABS: Calcium/Creatinine Ratio, Ur 97 mg/g creat (10-320); Urine Calcium, Random 6.7 mg/dL; Urine Creatinine, Random 69 mg/dL (20-275)
== END 2024-12-04 11:15 | disposition home or self-care (01) ==
PROVIDERS: PCP Nurse Practitioner Family; Visit Provider Internal Medicine Nephrology
DX: E83.52 Hypercalcemia (principal)
CPT/HCPCS: 82310; 82570

== ENCOUNTER 2024-12-09 08:47 | Outpatient (CLI) | payer MEDICARE, OTHER, SELFPAY ==
--- NOTE | ~2024-12-09 | NM_ITS ---
EXAMINATION: NM bone scan whole body DATE: 12/09/2024 12:25 INDICATION: Hypercalcemia TECHNIQUE: 25.0 mCi Tc-99m HDP was administered intravenously. Delayed whole-body scintigrams were o btained. COMPARISON: CT abdomen pelvis dated 07/17/2024, chest dated 07/31/[address] dated. No mor e recent relevant imaging studies at our institution. 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 There is asymmetric increased uptake underlying the medial side of the tibial tray of the left knee arthroplasty which could be seen with loosening. Likely degenerative joint centered uptake at th e right acromioclavicular joint and in the left hand and bilateral feet and ankles. Mild likely degen erative disc centered uptake at L4-L5 with corresponding degenerative disc disease on prior CT. There is nonspecific relatively diffuse asymmetric increased right anterior calvarial uptake. IMPRESSION: 1. Asymmetric right-sided predominant diffuse uptake at the anterior calvarium likely to hyperostosis frontalis which is evident on CT dated 04/28/17. 2. Asymmetric increased uptake underlying the medial side of the tibial tray of a left total knee art hroplasty which could be seen with loosening. Consider plain radiographs for correlation. 3. Additional scattered likely degenerative joint and disc centered uptake as detailed above. No othe r lesions suspicious for metastatic disease. Of note bone scan can be insensitive for lytic bone dise ase but of which there is no evidence prior CT imaging. Reviewed, dictated and finalized at location A. IMPRESSION: 1. Asymmetric right-sided predominant diffuse uptake at the anterior calvarium likely to hyperostosis frontalis which is evident on CT dated 04/28/17. 2. Asymmetric increased uptake underlying the medial side of the tibial tray of a left total knee arthroplasty which could be seen with loosening. Consider pl ain radiographs for correlation. 3. Additional scattered likely degenerative joint and disc centered uptake as d etailed above. No other lesions suspicious for metastatic disease. Of note bone scan can be insensitive for lytic bone disease but of which there is no eviden ce prior CT imaging.
--- OUTSIDE RECORDS SUMMARY | 2024-12-09 09:07 | XMS_ITS | Clinical Summary ---
Author Organization [facility] Address [address] [place] [address] Phone Care Team Providers Care Director Of Group Sales Name Role Phone Isai Marin MD Primary Care Provider [phone] Allergies Active Allergy Reactions Criticality Noted Date [...] MCG/ML injection 12/17/2013 Active ergocalciferol (VITAMIN D-2) 98582 units capsule 1 weekly 06/29/2012 Active Multiple [...] Comments Blood Pressure 124/78 08/16/2022 3:09 PM RODEO PERFORMER Pulse 72 08/16/2022 3:09 PM RODEO PERFORMER Temperature 36 C (96.8 F) 08/16/2022 3:09 PM RODEO PERFORMER Respiratory Rate - - Oxygen Saturation - - Inhaled Oxygen Concentration - - Weight 99.3 kg (219 lb) 08/16/2022 3:09 PM RODEO PERFORMER Height 162.6 cm (5' 4 ) 08/16/2022 3:09 PM RODEO PERFORMER Body Mass Index 37.59 08/16/2022 3:09 PM RODEO PERFORMER Plan of Treatment Health Maintenance Due Date Last Done Comments Diabetic Foot Exam 1955 Ophthalmology Exam 1955 Pneumococcal PPSV23/PCV13 65 + Years / High and Highest Risk (3 of 4 - PPSV23 or PCV20) 05/19/2014 11/06/2012, 05/19/2009 COVID-19 Vaccine (2023-2 5 season) 2024 05/24/2022, 07/07/2021, 10/31/2020, Additional history exists Influenza Vaccine (#1) 2024 , 04/16/2015, 06/10/2013 Care Teams Director Of Group Sales Relationship Specialty Start Date End Date Isai Marin MD [facility] [place] [address] PCP - General Family Medicine 08/16/22
--- OUTSIDE RECORDS SUMMARY | 2024-12-09 09:07 | XMS_ITS | Clinical Summary ---
Author Organization [facility] Address [address] [place] [address] Care Team Providers Care Theatrical Variety Agent Name Role Phone Pelon Curiel MD Primary [...] C 1965 DTaP, Tdap and Td Vaccines ( 1 - Tdap) 1966 Annual Medicare Wellness Visit 2012 Dexa Scan (General) 2012 Zoster Vaccines (2 of 3) 07/30/2012 06/04/2012 Pneumococcal Vaccine: 65+ Years (3 of 3 - PPSV23 or PCV20) 05/31/2020 05/31/2015, 11/06/2012, 05/19/2009 RSV Immunization or 60+ Years (1 - 1-dose 75+ series) 2022 COVID-19 Vaccine ( - 2023-2 5 season) 2024 Meningococcal B Vaccine Aged Out No l onger eligible based on patient's age to complete this topic Meningococcal Vaccine Aged Out No baltazar juan carlos eligible based on patient's age to complete this topic RSV Immunizations Under 20 Months Aged Out No longer eligible b ased on patient's age to complete this topic Insurance MEDICARE [facility] Care Teams Theatrical Variety Agent Relationship Specialty Start Date End Date Pelon Curiel MD [address] [place] [address] PCP - General ORTHOPAEDICS 05/27/18
--- OUTSIDE RECORDS SUMMARY | 2024-12-09 09:07 | XMS_ITS | Data Portability ---
Author Organization [place] - [facility], Main Office Address [address] [place] [address] Care Team Providers Care Chaser Helper Name Role Phone ROMMEL BRADY Primary Care Provider ROMMEL BRADY Referring Provider Assessment Encounter Date [...] rapid flu (A+B) 2023 024 sonia [address], [place], [address], 10:29:17 rsv (respirator y syncytial virus), rapid, nasopharyng eal 2023 024 [email or web address] [address] [place], [place], [address], 10:29:15 Referral None recorded. Procedures injection/a spiration joint/bursa (PROC) 2023 024 [email or web address] In-Office Order, Internal Use Only DO Not Attach Compendium DO Not Attach Compendium, Do Not Delete/merge, [id number] 09/09/202 4 10:06:20 injection/a spiration joint/bursa (PROC) 2023 024 [email or web address] In-Office Order, Internal Use Only DO Not Attach Compendium DO Not Attach Compendium, Do Not Delete/merge, [id number] 4 09:38:11 injection/a spiration joint/bursa (PROC) 2023 024 [email or web address] In-Office Order, Internal Use Only DO Not Attach Compendium DO Not Attach Compendium, Do Not Delete/merge, [id number] 4 13:52:22 injection/a spiration joint/bursa (PROC) 2023 024 [email or web address] In-Office Order, Internal Use Only DO Not Attach Compendium DO Not Attach Compendium, Do Not Delete/merge, [id number] 4 13:52:22 injection/a spiration joint/bursa (PROC) - in office procedure, administere d by provider 2023 024 [email or web address] In-Office Order, Internal Use Only DO Not Attach Compendium DO Not Attach Compendium, Do Not Delete/merge, 4 10:35:26 Surgeries None recorded. Imaging XR, chest, 2 view 2023 024 [email or web address] 2 [facility], [address] [place] [address] , [place], [address], 4 08:46:50 XR, hand 2023 024 [email or web address] [facility] [place], [address] [facility] [address], [place], [address], 4 11:17:19 Medication Orders bupivacaine HCl 0.5 % (5 mg/mL) injection solution 2023 024 [email or web address] [facility], [address], [place], [address], 4 11:14:21 Kenalog 10 mg/mL suspension for injection [address] [facility], [address], [place], [address], 4 11:14:21 bupivacaine HCl 0.5 % (5 mg/mL) injection solution [address] [facility], [address] [place], [address], 4 09:48:52 Kenalog 10 mg/mL suspension for injection [address] [facility], [address] [place], [address], 4 09:48:52 bupivacaine HCl 0.5 % (5 mg/mL) injection solution [address] [place] [address] Pharmacy 4878, [address] [place], [address], 4 14:34:16 Kenalog 10 mg/mL suspension for injection [address] [place] [address] Pharmacy 4878, [address] [place], [address], 4 14:34:16 bupivacaine HCl 0.5 % (5 mg/mL) injection solution [address] [facility], [address] [place], [address], 4 14:34:16 Kenalog 10 mg/mL suspension for injection [address] [place] [address] Pharmacy 4878, [address] [place], [address], 4 14:34:16 celecoxib 100 mg capsule [address] [facility], [address], [place], [address], 4 14:34:16 levofloxaci n 750 mg tablet 2023 024 [facility], [address], [place], [place], [address], 4 12:38:30 promethazin e-DM 6.25 mg-15 mg/5 mL oral syrup 2023 024 [facility], [address], [place], [address], 4 12:39:06 Atrovent HFA 17 mcg/actuati on aerosol inhaler [email or web address] [facility], [address], [place], [place], [address], 4 12:39:38 Kenalog 10 mg/mL suspension for injection [address] [facility], [address], [place], [place], [address], 4 11:25:07 bupivacaine (PF) 0.25 % (2.5 mg/mL) injection solution [address] [facility], [address], [place], [place], [address], 4 11:25:07 prednisone 10 mg tablets in a dose pack 2023 024 [email or web address], [address], [place], [place], [address], 4 12:26:58 Patient TargetsNo targets recorded. Patient Instructions Encounter Date Encounter Id Patient Instructions Last Modified By Organization Details Last Modified Time 01/01/2024 [id number] Advised getting a Covid test [email or web address] Not available 01/09/2024 10:28:25 Reason for Referral None Reported. Results Created Date Observation Date Name Description Value Unit Range Abnormal Flag Note LastModifiedBy Organization Detail LastModifiedTime 01/01/20 24 01/01/2024 rsv (resp irato ry syncy tial virus ), rapid , nasop haryn geal RSV negati ve Not Available [address]eep Deutsch, [place], [address], 01/01/2024 12:48:45 01/01/20 24 01/01/2024 rapid flu (A+B) Flu A negati ve Not Available [address], [place], [address], 01/01/2024 12:48:38 01/01/20 24 01/01/2024 rapid flu (A+B) Flu B negati ve Not Available [address], [place], [address], 01/01/2024 12:48:38 12/17/19 24 XR, hand No observ ation record ed. [email or web address] [facility] [place] [address], [place], [address], 12/17/2023 10:47:27 01/01/20 24 01/01/2024 XR, chest , 2 view No observ ation record ed. [email or web address] [place] [address] [address] [facility], [place], [address], 05/20/2024 11:23:53 Result Notes None recorded. 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 99893577831 35507 Active 2020 Not Available [facility] 3 13:10:47 History of total knee arthropla sty 12243602873 05 Active 2020 Not Available [facility] 3 13:10:47 Pain in right sacroilia c joint 15620460419 510520 Active 2021 Not Available [facility] 3 13:10:47 Injury of hand 979200745 Completed Not Available [facility] 3 08:09:56 Abscess 800681002 Completed Not Available [facility] 3 08:09:56 Folliculi tis 99661908 Completed Not Available [facility] 3 08:09:56 Disorder of thyroid gland 63610102 Active Not Available [facility] 3 13:10:47 Acute sinusitis 55510944 Completed Not Available [facility] 3 08:09:56 History of artificia l joint 695956281 Active 2021 Not Available [facility] 3 13:10:47 Spinal stenosis of lumbar region 56395078 Active 2020 Not Available [facility] 3 13:10:47 Foot callus 618542709 Completed Not Available [facility] 3 08:09:56 Tooth disorder 842821373 Completed Not Available [facility] 3 08:09:57 Post-surg ical malabsorp tion 065342903 Active Not Available [facility] 3 13:10:47 Edema 485864111 Completed Not Available [facility] 3 08:09:57 Right upper quadrant pain 522613876 Completed Not Available [facility] 3 08:09:57 Vitamin D deficienc y 96119866 Active Not Available [facility] 3 13:10:47 Primary hyperpara thyroidis m 99911723 Active 2021 Not Available [facility] 3 13:10:47 Arthritis 1676228 Active 2021 Not Available [facility] 3 13:10:47 Disorder of vitamin B12 215921134 Active 2021 Not Available [facility] 3 13:10:47 Menorrhag ia 467568840 Completed Not Available [facility] 3 08:09:57 Disorder of gallbladd er 02206984 Active Not Available [facility] 3 13:10:47 Gastric ulcer 123980993 Active Not Available [facility] 3 13:10:47 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 Not Available [facility] 3 13:10:47 Vitamin B deficienc y 25630150 Active Not Available [facility] 3 13:10:47 Anxiety 96089199 Active Not Available [facility] 3 13:10:47 Upper respirato ry infection 48280859 Completed Not Available [facility] 3 08:09:58 Pain in wrist 57165429 Completed Not Available [facility] 3 08:09:58 Cyst of Bartholin 's gland duct 88644634 Active Not Available [facility] 3 13:10:47 Diarrhea 06499401 Completed Not Available [facility] 3 08:09:58 Osteoporo sis 27240825 Active 2019 Not Available [facility] 3 13:10:47 Nasal congestio n 13496492 Completed Not Available [facility] 3 08:09:58 Decreased renal function 80008325 Active 2021 Not Available [facility] 3 13:10:47 Candidias is 48523957 Active 2016 Not Available [facility] 3 13:10:47 Cardiomeg vladislav 6039508 Active 2019 Not Available [facility] 3 13:10:47 Perniciou s anemia 26540422 Active Not Available [facility] 3 13:10:47 COVID-19 568218728 Active 2019 Not Available [facility] 3 13:10:47 Cobalamin deficienc y 461002232 Active 03/02/ 2023 Not Available [facility] 3 13:10:47 Pain in right hip joint 92536687936 9102 Active 2022 Not Available [facility] 3 13:10:47 Essential hypertens ion 73772377 Active 2022 Not Available [facility] 3 13:10:47 Cramp in lower limb 626685001 Active 2022 Not Available [facility] 3 13:10:47 Intoleran t of cold 94970225 Active 2022 Not Available [facility] 3 13:10:47 Anemia 482246162 Active 2022 Not Available [facility] 3 13:10:47 Acquired bilateral pes planus 69496377083 799106 Active 2022 JORDAN Stovall, [facility] 3 14:29:22 Eruption 421794436 Active 2022 Isai Marin MD [address], [address], [place], [address] , [facility] 3 11:25:07 Osteoarth ritis 903520277 Active 2022 Isai Marin MD [address], [address], [place], [address] , [facility] 3 11:40:33 Skin lesion 90080929 Active 2022 Isai Marin MD [address], [place], [address] , [facility] 3 11:43:22 Acid reflux 984162796 Active 2022 Isai Marin MD [address], [place], [address] , [facility] 3 08:24:33 Acute upper respirato ry infection 78431431 Active 2023 CHANTEL Olson [address], [place], [address] , [facility] [employer] [facility] 4 09:41:55 Pain of left hand 09519526203 9103 Active 2023 Giuliana Ivan DORENEAdrian null, [facility] [employer] [facility] 4 10:10:18 Localized , primary osteoarth ritis of the wrist 175662772 Active 2023 CHANTEL Calero [address], [address], [place], [address] , [facility] [employer] [facility] 4 10:44:24 Osteoarth rosis of the carpometa carpal joint of the thumb 65997916 Active 2023 CHANTEL Calero [address], [address], [place], [address] , [facility] [employer] [facility] 4 10:44:50 Localized , primary osteoarth ritis of the wrist 155311793 Active 2023 CHANTEL Calero [address], [address], [place], [address] , [facility] [employer] [facility] 4 10:45:19 Acute bronchiti s 09931249 Active 2023 CHANTEL Olson [address], [address], [place], [address] , [facility] [employer] [facility] 4 12:35:06 Lesion of skin of nose 05278048011 138740 Active 2023 CHANTEL Olson [address], [address], [place], [address] , [facility] [employer] [facility] 4 12:41:52 Problem Notes None recorded. Procedures Surgical History Date Name Laterality Status Provider Name and Address Organization Details Recorded Time Foot Surgery completed Not Available [facility] 11/08/2022 08:06:46 Knee Replacement completed Not Available [facility] 11/08/2022 08:06:46 operation on hip joint completed Not Available [facility] 11/08/2022 08:06:46 tonsilectomy/yancy oids completed Not Available [facility] 11/08/2022 08:06:46 Appendectomy completed Not Available [facility] 11/08/2022 08:06:46 Hysterectomy completed Not Available [facility] 11/08/2022 08:06:46 Gastric Bypass completed Not Available [facility] 11/08/2022 08:06:46 Imaging Results Imaging Date Name Status LastModified by Organiz ation Details LastModified Time 12/17/2023 XR, hand completed [email or web address] [facility] [place] [address], [place], [address], 12/17/2023 10:47:27 01/01/2024 XR, chest, 2 view completed [email or web address] [place], [address], 05/20/2024 11:23:53 Procedure Notes None recorded. Medical Equipment None Reported. Allergies Allergen ID Allergen Name Allergen Category Reaction Reaction Severity Criticality Documentation Date Start Date Code Code System Note Provider Name and Address Organization Details Recorded Time Product containin g penicilli n (product) medicatio n Not available Not available Not available 11/08/2022 38187 8001 SNOMED Not Available [facility] 3 08:14:13 codeine medicatio n Not available Not available Not available 11/08/2022 2670 RxNorm Not Available [facility] 3 08:14:13 Medications Name Sig Start [...] mg by injectio n route. 2023 active [facility]: [id number] 4-20 Not Available Not Available Not [...] mg/mL) injection solution in office 2023 active [facility]:5515 0-168-30 Not Available Not Available Not Available [...] completed Not Available Not Available Not Available [facility] 100,000 unit/gram topical powder APPLY [...] 3 157.48 cm 157.48 cm 39.9 kg/m2 39915.1 4 g 96.7 [degF] 69 /min 97 % 97 % 116 mm[Hg] 78 mm[Hg] Glory gaines CMA [facility] 3 11:23:55 Date Recorded Body height Body mass index (BMI) Body weight Provider Name and Address Organization Details Last Updated DateTime 12/17/2023 162.56 cm 34.3 kg/m2 74886.47 g Giuliana Ivan [facility] [employer] [facility] 12/17/2023 10:09:08 Date Recorded Body height Body mass index (BMI) Body weight Body temperature Respiratory rate Heart rate Oxygen saturation Oxygen saturation in Arterial blood by Pulse oximetry Systolic blood pressure Diastolic blood pressure Provider Name and Address Organization Details Last Updated DateTime 162.56 cm 34.8 kg/m2 98170.2 5 g 98.6 [degF] 16 /min 52 /min 94 % 94 % 114 mm[Hg] 70 mm[Hg] Anisha Peace RN [facility] [employer] [facility] 12:30:33 Date Recorded Body height Body mass index (BMI) Body weight Provider Name and Address Organization Details Last Updated DateTime 02/07/2024 162.56 cm 34.3 kg/m2 96792.47 g Annabella Naylor CNA [facility] [employer] [facility] 02/07/2024 13:25:11 Date Recorded Body height Provider Name an d Address Organization Details Last Updated DateTime 05/19/2024 162.56 cm Tiki Monet [facility] [employer] [facility] 05/19/2024 09:35:53 Social History Question Answer Notes LastModified by Organizat ion Details LastModified Time Tobacco Smoking Status Never Smoker Not Available [facility] 11/08/2022 08:06:35 What Is Your Level Of Alcohol Consumption? Occasional [id number] Information not available 11/08/2022 What Is Your Level Of Caffeine Consumption? Moderate [id number] Information not available 11/08/2022 In The 14 Days Before Symptom Onset, Have You Had Close Contact With A Laboratory-confirm ed COVID-19 While That Case Was Ill? No [id number] Information not available 11/08/2022 In The 14 Days Before Symptom Onset, Have You Had Close Contact With A Person Who Is Under Investigation For COVID-19 While That Person Was Ill? No [id number] Information not available 11/08/2022 Which Illicit Or Recreational Drugs Have You Used? No [id number] Information not available 11/08/2022 Sex: Female Functional Status None recorded. Mental Status None recorded. Family History Relationship Description Onset Age of this Age Resolved Age Notes LastModified by Organization Details LastModified Time Father Heart disease [id number] Not available 11/08/2022 08:06:48 Mother Hypertensive disorder [id number] Not available 11/08/2022 08:06:48 Mother Alzheimer's disease [id number] Not available 11/08/2022 08:06:48 Medical History Condition Response ARTHRITIS Y EYE PROBLEMS Y HEADACHES/MIGRAINES Y OBESITY Y GI PROBLEMS Y GERD/NAUSEA Y ANEMIA/BLOOD DISORDER Y SKIN PROBLEMS KIDNEY DISEASE Y HYPERTENSION Y Gynecological HistoryNo gynecological history recorded. Obstetrics History GPAL:G 0 P 0 0 0 0 Immunizations Vaccine Type Date Status Note Provider Nam e and Address Organization Details Recorded Time Influenza, split virus, trivalent, preservative 3 completed Glory Munoz CMA null, [facility] 05/11/2023 11:25:57 Influenza, MDCK, quadrivalent, PF 2 completed [facility] 11:25:56 COVID-19, mRNA, LNP-S, PF, 30 mcg/0.3 mL dose 2 [facility]23 11:25:57 COVID-19, mRNA, LNP-S, PF, 100 mcg/0.5mL dose or 50 mcg/0.25mL dose 1 completed Glory Munoz CMA null, [facility] 05/11/2023 11:25:57 Influenza, split virus, quadrivalent, preservative 1 completed Glory Munoz CMA null, [facility] 05/11/2023 11:25:56 COVID-19, mRNA, LNP-S, PF, 100 mcg/0.5mL dose or 50 mcg/0.25mL dose 1 completed Glory Munoz CMA null, [facility] 05/11/2023 11:25:57 COVID-19, mRNA, LNP-S, PF, 100 mcg/0.5mL dose or 50 mcg/0.25mL dose 1 completed JORDAN Romero, [facility] 05/11/2023 11:25:57 Influenza, split virus, quadrivalent, preservative 0 completed JORDAN Romero, [facility] 05/11/2023 11:25:56 Influenza, split virus, quadrivalent, preservative 9 completed Not Available [facility] 02/12/2023 13:10:49 Influenza, split virus, quadrivalent, preservative 8 completed JORDAN Romero, [facility] 05/11/2023 11:25:56 Influenza, split virus, quadrivalent, preservative 7 completed Not Available [facility] 02/12/2023 13:10:49 Influenza, high-dose, trivalent, PF 6 completed JORDAN Romero, [facility] 05/11/2023 11:25:57 Influenza, split virus, trivalent, preservative 5 completed Not Available [facility] 02/12/2023 13:10:49 Pneumococcal conjugate PCV 13 3 completed Not Available [facility] 02/12/2023 13:10:49 zoster live 2 completed JORDAN Romero, [facility] 05/11/2023 11:25:57 pneumococcal polysaccharide PPV23 9 completed Not Available [facility] 02/12/2023 13:10:49 Past Encounters Encounter ID Performer Location Encounter Start Date Encounter Closed Date Diagnosis/Indication Diagnosis SNOMED-CT Code Diagnosis ICD10 Code Diagnosis Note [id number] [facility] [place] [address] 11/17/2020 00:00:00 11/17/2020 11:39:36 [id number] [facility] [place] [address] 12/20/2020 00:00:00 12/20/2020 09:34:40 [id number] [facility] [place] [address] , [place] [address] 01/13/2021 00:00:00 01/13/2021 13:29:43 [id number] [facility] [place] [address] , [place] [address] 02/17/2021 00:00:00 02/17/2021 13:19:54 [id number] [facility] [place] [address] [place] [address] 03/02/2021 00:00:00 03/03/2021 06:59:44 [id number] [facility] [place] [address] [place] [address] 03/16/2021 00:00:00 03/16/2021 13:56:11 [id number] [facility] [place] [address] [place] [address] 03/28/2021 00:00:00 03/28/2021 16:15:53 [id number] [facility] [place] [address] [place] [address] 04/14/2021 00:00:00 04/14/2021 11:46:05 [id number] [facility] [place] [address] [place] [address] 04/15/2021 00:00:00 04/16/2021 09:33:31 [id number] [facility] [place] [address] [place] [address] 04/28/2021 00:00:00 04/28/2021 11:27:49 [id number] [facility] [place] [address] [place] [address] 05/18/2021 00:00:00 05/18/2021 11:55:29 [id number] [facility] [place] [address] , [place] [address] 06/15/2021 00:00:00 06/15/2021 14:28:12 [id number] [facility] [place] [address] , [place] [address] 07/15/2021 00:00:00 07/29/2021 17:19:49 [id number] [facility] [place] [address] , [place] [address] 08/12/2021 00:00:00 08/15/2021 09:48:41 [id number] [facility] [place] [address] , [place] [address] 09/14/2021 00:00:00 09/14/2021 11:52:04 [id number] [facility] [place] [address] [place] [address] 09/15/2021 00:00:00 09/15/2021 11:45:49 [id number] [facility] [place] [address] [place] [address] [place] [address] 10/11/2021 00:00:00 10/11/2021 10:43:49 [id number] [facility] [place] [address] , [place] [address] 11/10/2021 00:00:00 11/10/2021 12:54:44 [id number] [facility] [place] [address] [place] [address] 11/11/2021 00:00:00 11/13/2021 17:39:45 [id number] [facility] [place] [address] [place] [address] 12/09/2021 00:00:00 12/09/2021 12:08:30 [id number] [facility] [place] [address] , [place] [address] 12/13/2021 00:00:00 12/14/2021 08:46:55 [id number] [facility] [place] [address] [place] [address] 01/02/2022 00:00:00 01/02/2022 15:08:53 [id number] [facility] [place] [address] , [place] [address] 01/10/2022 00:00:00 01/10/2022 13:44:03 [id number] [facility] [place] [address] [place] [address] 02/03/2022 00:00:00 02/03/2022 12:16:16 [id number] [facility] [place] [address] [place] [address] 02/07/2022 00:00:00 02/07/2022 18:18:03 [id number] [facility] [place] [address] , [place] [address] 02/09/2022 00:00:00 02/09/2022 18:23:28 [id number] [facility] [place] [address] [place] [address] 03/10/2022 00:00:00 03/10/2022 13:00:11 [id number] [facility] [place] [address] [facility] [place] [address] 04/12/2022 00:00:00 04/12/2022 11:01:55 [id number] [facility] [place] [address] [place] [address] 05/11/2022 00:00:00 05/11/2022 11:01:41 [id number] [facility] [place] [address] , [place] [address] 06/12/2022 00:00:00 06/12/2022 12:51:16 [id number] [facility] [place] [address] , [place] [address] 07/11/2022 00:00:00 07/11/2022 11:26:30 [id number] [facility] [place] [address] [place] [address] y , [place] [address] 08/10/2022 00:00:00 08/10/2022 12:50:41 [id number] [facility] [place] [address] [facility] y , [place] [address] 09/12/2022 00:00:00 09/12/2022 20:47:25 [id number] [facility] [place] [address] [place] [address] y , [place] [address] 10/11/2022 00:00:00 10/16/2022 15:02:11 [id number] Isai Marin MD [facility] [place] [address] [place] [address] y , [place] [address] 11/09/2022 10:25:17 11/09/2022 11:11:29 Cobalamin deficiency 397112549 E53.8 [id number] CHANTEL Brantley [facility] [place] [address] [place] [address] 11/29/2022 10:18:25 11/29/2022 11:21:19 Pain in right hip joint [id number] 48380 M25.551 [id number] Isai Marin MD [facility] [place] [address] [facility] , [place] [address] 12/13/2022 10:48:56 12/13/2022 15:27:57 Cobalamin deficiency 774190031 E53.8 [id number] CHANTEL Olson [facility] [place] [address] [place] [address] 01/10/2023 11:06:46 01/10/2023 11:32:23 Cobalamin deficiency 866179605 E53.8 [id number] Isai Marin MD [facility] [place] formerly [facility] [place] [address] 01/29/2023 14:25:27 01/29/2023 15:16:35 Cramp in lower limb [id number] R25.2 History of bypass of stomach 573130610 Z98.84 Intolerant of cold 62105 000 R68.89 [id number] Isai Marin MD [facility] [place] formerly [facility] [place] [address] 02/09/2023 10:59:31 02/27/2023 12:18:14 [id number] Isai Marin MD [facility] [place] [facility] [place] [address] 03/12/2023 10:56:25 03/12/2023 11:23:00 Cobalamin deficiency 821511760 E53.8 [id number] Isai Marin MD [facility] [place] [facility] [place] [address] 04/12/2023 10:22:44 05/04/2023 14:25:05 Cobalamin deficiency 129717419 E53.8 [id number] Isai Marin MD [facility] [place] [facility] [place] [address] 05/11/2023 10:34:52 05/11/2023 10:55:44 [id number] Isai Marin MD [facility] [place] [facility] [place] [address] 05/11/2023 10:57:31 05/11/2023 11:50:27 Osteoarthritis 041731706 M19.90 For filled out for disability Skin lesion 09279641 L98 .9 Apply JACEY and cover. [id number] CHANTEL Calero [facility] [place] [address] [place] [address] 12/17/2023 09:53:26 12/17/2023 11:17:18 Pain of left hand 2798345925 87040 M79.642 Localized, primary osteoarthritis of the wrist 702629767 M19.032 Osteoarthr osis of the carpometacarpal joint of the thumb 34702895 M18.12 [id number] CHANTEL Olson [facility] [address] , [place] [address] 01/01/2024 12:06:55 01/01/2024 12:53:32 Acute bronchitis 26981460 J20.9 [id number] CHANTEL Calero [facility] [place] [address] [place] [address] 02/07/2024 13:05:14 02/07/2024 13:56:29 Localized, primary osteoarthritis of the wrist 208099143 M19.032 Pain of left hand 157390 0186 35031 M79.642 Osteoarthr osis of the carpometacarpal joint of the thumb 15009668 M18.12 [id number] CHANTEL Calero [facility] [place] [address] [place] [address] 05/19/2024 09:24:06 05/19/2024 10:26:18 Pain of left hand 6731127435 16058 M79.642 Osteoarthr osis of the carpometacarpal joint of the thumb 34394061 M18.12 Localized, primary osteoarthritis of the wrist 438815781 M19.032 Health Concerns Section Related Observation LastModified by Organization Detai ls LastModified Time None Recorded Concern Status LastModified by Organization Details LastModified Time None Recorded Advance Directives Directive None Recorded Payers Encounter Date Sequence Insurance Name Policy Number Policy Ellington Covered Member ID Ell[place] Member ID Guarantor Name 05/11/2023 1 [place] Shania Gupta Hemann [id number] Shania L Hemann 05/11/2023 2 [employer] [place] (MEDICARE SUPPLEMENT) Shania L Hemann [id number] Shania L Hemann 12/17/2023 1 [place] Shania L Hemann [id number] Shania L Hemann 12/17/2023 2 [employer] [place] (MEDICARE [place]PPLE[place]) Shania L Hemann [id number] Shania L Hemann 01/01/2024 1 [place] Shania L Hemann [id number] Shania L Hemann 01/01/2024 2 [employer] [place] (MEDICARE [place]PPLE[place]) Shania L Hemann [id number] Shania L Hemann 02/07/2024 1 [place] Shania L Hemann [id number] Shania L Hemann 02/07/2024 2 [employer] [place] (MEDICARE [place]PPLE[place]) Shania L Hemann [id number] Shania L Hemann 05/19/2024 1 [place] Shania L Hemann [id number] Shania L Hemann 05/19/2024 2 [employer] [place] (MEDICARE SUPPLE[place]) Shania L Hemann [id number] Shania L Hemann Notes Date Note Type Note Provider Name and Address Organization Details Recorded Time 05/11/2023 text/html Here today Isai Marin MD [address] [place] [address], [place] [address], [place], [address], [facility] 05/11/2023 20:39:57 05/11/2023 text/html Here today for 4 month check up. Needs disability form filled out. Has hip pains and knee pains. Has a fever blister using abrevia on it. It is almost gone. Isai Marin MD [address], [address], [place], [address], [employer] [facility] 05/11/2023 20:39:28 12/17/2023 text/html Patient returns with complaints of left wrist and basilar thumb pain. This has been an ongoing problem for many years. Occasionally she will get severe flares of pain that caused her hand to swell. She comes in today with some dvej-na-amcjyihh swelling throughout the hand and wrist no [...] wrist and thumb pain she can not foil wrapper or pinch and has some stiffness chronic [...] CHANTEL Calero [address], [address], [place], [address], [employer] 12/17/2023 10:50:38 01/01/2024 text/html no better after a zpak , no fever CHANTEL Olson [address], [place], [address], [employer] [facility] [place] 01/09/2024 10:29:20 02/07/2024 text/html Patient returns she [...] CHANTEL Calero [address], [address], [place], [address], [employer] 02/07/2024 14:08:33 05/19/2024 text/html The patient retu [...] not do anything heavy repetitive trying to foil wrapper pinch or grasp anything causes her significant [...] CHANTEL Calero [address], [place], [address], [employer] 05/19/2024 10:15:04 OBGyn Episode No OBEpisode recorded.
--- OUTSIDE RECORDS SUMMARY | 2024-12-09 09:07 | XMS_ITS | Continuity of Care Document ---
Author Organization [facility] Address [address] [place] [address] Phone Care Team Providers Care Plating Engineer Name Role Phone Shahla Guillen Unavailable Unavailable Procedures Procedure Date Eye Exam & Treatment Eye Exam & Treatment Progressive Lens, Plastic Vision Svcs Frames Purchases Tax - Medical Eye Exam, New Patient Refraction Advance Directives Directive Yes / No Effective Date File Name No Information Encounters Encounter Description Practice Location Reason(s) For Visit Diagnoses Date Provider Providers Copied on Encounter [facility], [id number] [place] [address] [address], [place], [place], [id number], tel:[phone] [facility] No Information 5-201 0 Mindy Gale. [address] [facility] [address] , [address], [place], [place], [facility], . tel:[phone] [facility], [address] [place] [address] [address], [place], [place], [address], [place] tel:[phone] [facility] No Information 6200 9 Brittany Carroll. [address] [facility] [address], [place], [place], [facility], . tel:[phone] [facility], [address], [place], [place], [address], [place] tel:[phone] [facility] No Information 8 [employer] [facility] [employer]. [address] [facility], [address], [place], [place], [address], [place]. tel:[phone] Referring Provider: Glen granados, [address], [address]. tel:[phone] sulting Provider: Rani Barillas, [address] [place], [address]. tel:[phone] [facility], [address] [facility] [address], [place], [place], [address], [place] tel:[phone] [facility] No Information 8 Brittany Carroll. [address], [address], [place]. tel:[phone] Family History Family Member Type Diagnosis Age [...]
--- OUTSIDE RECORDS SUMMARY | 2024-12-09 09:07 | XMS_ITS | Clinical Summary ---
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
--- OUTSIDE RECORDS SUMMARY | 2024-12-09 09:07 | XMS_ITS | Referral Summary ---
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
--- OUTSIDE RECORDS SUMMARY | 2024-12-09 09:07 | XMS_ITS | Clinical Summary ---
Author Organization [facility] Address [address] [place] [address] Care Team Providers Care Drum Sander Offbearer Name Role Phone Melissa Herman RN Unavailable [phone] Luz Tobias ASSOCIATE PROFESSOR OF ARCHAEOLOGY-TEAROOM HOST Primary Care Provider + Source Comments [facility],non-owned Affiliates and Associated Physician Practices is amultiple site organization consisting of ambulatory clinics and hospital sitesin [place], [place], [place] and [place]. This disclosure is being madepursuant to the Care Everywhere program and may not contain all information available regarding this patient. Last updated 18.[facility] Allergies Active Allergy Reactions Criticality Noted Date [...] 1-dose 75+ series) 2022 COVID-19 VACCINE ( season) 2024 DEPRESSION SCREENING 09/10/2024 INFLUENZA VACCINE (Season Ended) 2025 HEPATITIS B VACCINE Aged Out No longe [...] (CALCIUM TOTAL) AM Draw 10/27/2017 5:22 AM BOOKSTORE MANAGER from Last 3 Months or Most Recently Relevant to Health Maintenance Results * (ABNORMAL) BASIC METABOLIC PANEL (CALCIUM TOTAL) (10/27/2017 5:22 AM BOOKSTORE MANAGER) Glucose 84 74 - 106 mg/dL 10/27/2017 5:52 AM [facility] Sodium 140 136 - 145 mmol/L 10/27/2017 5:52 AM [facility] Potassium 3.4(L) 3.5 - 5.1 mmol/L 10/27/2017 5:52 AM [facility] Chloride 106 98 - 107 mmol/L 10/27/2017 5:52 AM [facility] CO2 29 22 - 31 mmol/L 10/27/2017 5:52 AM [facility] Calcium 9.1 8.5 - 10.1 mg/dL 10/27/2017 5:52 AM [facility] Anion Gap 5(L) 8 - 16 mmol/L 10/27/2017 5:52 AM [facility] BUN 20 7 - 21 mg/dL 10/27/2017 5:52 AM [facility] Creatinine 0.75 0.50 - 1.30 mg/dL 10/27/2017 5:52 AM [facility] eGFR by MDRD >60 mL/min/1.7 3m2 10/27/2017 5:52 AM BOOKSTORE MANAGER [facility] eGFR by MDRD >60 mL/min/1.7 3m2 10/27/2017 5:52 AM BOOKSTORE MANAGER [facility] Blood BLOOD SPECIMEN / Unknown Venipuncture / Unknown 10/27/2017 5:22 AM BOOKSTORE MANAGER 10/27/2017 5:28 AM BOOKSTORE MANAGER Kwame Dinero MD LAB - CHEMISTRY [facility] [address] [place] [address] from Last 3 Months or Most Recently Relevant to Health Maintenance Advance Directives Documents on File Type Date Recorded 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
== END 2024-12-09 08:48 | disposition home or self-care (01) ==
PROVIDERS: PCP Nurse Practitioner Family; Visit Provider Internal Medicine Nephrology
DX: E83.52 Hypercalcemia (principal)
CPT/HCPCS: 78306; A9503

== ENCOUNTER 2025-06-10 09:22 | Outpatient (CLI) | payer MEDICARE, SELFPAY ==
--- OUTSIDE RECORDS SUMMARY | 2010-06-24 03:15 | XMS_ITS | Continuity of Care Document ---
Author Organization [facility] [place] Address [address] [place] [address] Phone Care Team Providers Care Helicopter Pilot Name Role Phone Shahla Guillen Unavailable Unavailable Procedures Procedure Date Eye Exam & Treatment Eye Exam & Treatment Progressive Lens, Plastic Vision Svcs Frames Purchases Tax - Medical Eye Exam, New Patient Refraction Advance Directives Directive Yes / No Effective Date File Name No Information Encounters Encounter Description Practice Location Reason(s) For Visit Diagnoses Date Provider Providers Copied on Encounter [facility], [id number] [place] [address] [address], [place], [place], [id number], tel:[phone] [facility] No Information 5-201 0 Mindy Gale. [address] , [address], [place], [place], [facility] [place], . tel:[phone] [facility], [address] [place] [address] [address], [place], [place], [id number], [place] tel:[phone] [facility] No Information 6200 9 Brittany Carroll. [address] [facility] [address], [place], [place], [facility], . tel:[phone] [facility], [address], [place], [place], [id number], [place] tel:[phone] [facility] No Information 8 [employer] [facility] [employer]. [address], [address], [place], [place], [id number], [place]. tel:[phone] Referring Provider: Glen granados, [address], [address]. tel:[phone] sulting Provider: Rani Barillas, [address] [place], [address]. tel:[phone] [facility], [address] [facility] [address], [place], [place], [id number], [place] tel:[phone] [facility] No Information 8 Brittany Carroll. [address], [address], [place]. tel:[phone] Family History Family Member Type Diagnosis Age At Onset No Information Payers Payer name Insurance type Covered libertarian ID Authoriza tion(s) No Information Social History Type Description Quantity Date Captured Comments Sex Female Smoking Status No Information Chief Complaint And Reason For Visit No Information Reason For Referral Reason For Referral No Information History Of Present Illness Encounter Date Complaint History Of Prese nt Illness No Information Functional Status Date Functional Assessmen t No Information Instructions Date Instruction Additional Infor mation No Information Assessments Type Assessment Date No Information Patient Care Teams Name Effective Dates (start - stop) Status Members No Information
[2025-06-10 09:53] LABS: Hematocrit 36.9 % (37.0-47.0); Hemoglobin 10.3 g/dL (12.0-15.0); Mean Corpuscular HGB Conc 27.9 g/dl (32-36); Mean Corpuscular Hemoglobin 22.8 pg (26-34); Mean Corpuscular Volume 81.6 fl (80-100); Platelet Count Result 342 k/mm3 (150-375); Red Blood Count 4.52 M/mm3 (4.2-5.4); White Blood Count 7.2 K/mm3 (4.5-10.0)
--- OUTSIDE RECORDS SUMMARY | 2025-06-10 09:59 | XMS_ITS | Clinical Summary ---
Author Organization [facility] Address [address] [facility] [place] [address] Care Team Providers Care Motorcycle Tester Name Role Phone Melissa Herman RN Unavailable [phone] Luz Tobias FARM EQUIPMENT ENGINEER-CERTIFIED TUMOR REGISTRAR Primary Care Provider + Source Comments [facility],non-owned Affiliates and Associated Physician Practices is amultiple site organization consisting of ambulatory clinics and hospital sitesin [place], [place], [place] and [place]. This disclosure is being madepursuant to the Care Everywhere program and may not contain all information available regarding this patient. Last updated 18.[facility] Allergies Active Allergy Reactions Criticality Noted Date Comments Codeine Other High 06/17/2012 passed out Penicillins Other Medium 06/17/2012 vaginal burning and itching Medications * Be aware that medications may not be up to date on this document. Alwaysverify current medications with the patient. multivitamin daily (THERAGRAN) tablet Take 1 Tab by mouth daily with food. Active Calcium-Vitami n D-Vitamin K (CHEWABLE CALCIUM PO) Take by [...] by mouth 2 times daily 120 tablet 8 Active pantoprazole EC (PROTONIX) 40 MG tablet Take 1 tablet by mouth once daily 90 tablet 3 8 Active sucralfate (CARAFATE) 1 GM/10ML suspension Take 10 mL by mouth 4 times daily 1200 mL 2 8 Active Additional Information Patient not taking.Reported on 01/25/2018 lisinopril (PRINIVIL; ZESTRIL) 20 MG tablet Take 20 mg by mouth once daily 8 Active Active Problems Problem Noted Date Diagnosed Date Epigastric abdominal pain 10/25/2017 Marginal ulcer 03/29/2015 Social History Tobacco Use Types Packs/Day Years Used Date Smoking Tobacco: Never Smokeless Tobacco: Never Tobacco Cessation:Counseling Given: No Alcohol Use Standard Drinks/Week Comments Yes 0 (1 standard drink = 0.6 oz pure alcohol) SOCIALLY 1 GLASS OF WINE PER MONTH Comments No Sex and Gender Information Value Date Recorded Sex Assigned at Not on file Legal Sex Female 6:08 AM UNDER PRESSER Gender Identity Not on file Sexual Orientation [...] 11:21 AM CDT Height 162.6 cm (5' 4) 05/03/2018 11:21 AM CDT Body Mass Index [...] yrs (1 - 1-dose 75+ series) 2022 DEPRESSION SCREENING 09/10/2024 COVID-19 VACCINE ( season) 2025 INFLUENZA VACCINE (#1) 2025 HEPATITIS B VACCINE Aged Out No [...] (CALCIUM TOTAL) AM Draw 10/27/2017 5:22 AM UNDER PRESSER from Last 3 Months or Most Recently Relevant to Health Maintenance Results * (ABNORMAL) BASIC METABOLIC PANEL (CALCIUM TOTAL) (10/27/2017 5:22 AM UNDER PRESSER) Glucose 84 74 - 106 mg/dL 10/27/2017 5:52 AM [facility] Sodium 140 136 - 145 mmol/L 10/27/2017 5:52 AM [facility] Potassium 3.4(L) 3.5 - 5.1 mmol/L 10/27/2017 5:52 AM [facility] Chloride 106 98 - 107 mmol/L 10/27/2017 5:52 AM UNDER PRESSER [facility] CO2 29 22 - 31 mmol/L 10/27/2017 5:52 AM [facility] Calcium 9.1 8.5 - 10.1 mg/dL 10/27/2017 5:52 AM [facility] Anion Gap 5(L) 8 - 16 mmol/L 10/27/2017 5:52 AM [facility] BUN 20 7 - 21 mg/dL 10/27/2017 5:52 AM [facility] Creatinine 0.75 0.50 - 1.30 mg/dL 10/27/2017 5:52 AM UNDER PRESSER [facility] eGFR by MDRD >60 mL/min/1.7 3m2 10/27/2017 5:52 AM UNDER PRESSER [facility] eGFR by MDRD >60 mL/min/1.7 3m2 10/27/2017 5:52 AM UNDER PRESSER [facility] Blood BLOOD SPECIMEN / Unknown Venipuncture / Unknown 10/27/2017 5:22 AM UNDER PRESSER 10/27/2017 5:28 AM UNDER PRESSER us Kwame Dinero MD LAB - CHEMISTRY ORDERABLES Adina amaya Result [facility] [address] [place] [address] from Last 3 Months or Most Recently Relevant to Health Maintenance Insurance MEDICARE [place] [employer] [place] [facility] [facility] ACC MED [place] [id number] SELF PAY NO INSURANCE Member Subscriber Plan / Payer (Ef fective for All Dates) Name:Shania Cho Member ID:Not on file Relation to Subscriber:Not on file Name:SHANIA CHO Subscriber ID:Not on file (Home) Address: [address] [place] [address] Payer ID:Not on file Group ID:Not on file Type:Self Pay Address: [place], [place] MEDICARE MEDICARE Member Subscriber Plan / Payer (Ef fective for All Dates) Name:Shania Cho Member ID:[id number] Relation to Subscriber:Self Name:Shania Cho Subscriber ID:[id number] Payer ID:Not on file Group ID:Not on file Type:Medicare Address: [address] Advance Directives Documents on File Type Date Recorded 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
--- OUTSIDE RECORDS SUMMARY | 2025-06-10 09:59 | XMS_ITS | Clinical Summary ---
Author Organization [facility] Address [address] [place] [address] Phone Care Team Providers Care Electrogalvanizing Machine Operator Name Role Phone Isai Marin MD Primary Care Provider [phone] Allergies Active Allergy Reactions Criticality Noted Date Comments Codeine Other (see comments),Unknown High 06/17/2012 Other reaction(s): Other Vaginal Itching passed out Vaginal Itching passed out Penicillins Other (see comments),Unknown Medium 06/17/2012 Other reaction(s): Other Vaginal Infections after taking vaginal burning and itching Vaginal Infections after taking vaginal burning and itching Medications cyanocobalamin (VITAMIN B-12) 1000 MCG/ML injection 12/17/2013 Active ergocalciferol (VITAMIN D-2) 59991 units capsule 1 weekly 06/29/2012 Active Multiple Vitamin (MULTIVITAMIN) capsule 12/17/2013 Active lisinopril (PRINIVIL) 20 MG tablet Take 20 [...] Type 2 diabetes mellitus without complication Immunizations Immunization Administration Dates Next Due Influenza Split High [...] at Not on file Legal Sex Female 7:52 AM [facility] Gender Identity Not on file Sexual Orientation Not on file Last Filed Vital Signs Vital Sign Reading Time Taken Comments Blood Pressure 124/78 08/16/2022 3:09 PM [employer] Pulse 72 08/16/2022 3:09 PM [employer] Temperature 36 C (96.8 F) 08/16/2022 3:09 PM [employer] Respiratory Rate - - Oxygen Saturation - - Inhaled Oxygen Concentration - - Weight 99.3 kg (219 lb) 08/16/2022 3:09 PM [employer] Height 162.6 cm (5' 4) 08/16/2022 3:09 PM [employer] Body Mass Index 37.59 08/16/2022 3:09 PM [employer] Plan of Treatment Health Maintenance Due Date Last Done Comments Pneumococcal PPSV23/PCV13 65 + Years / Low and Medium Risk (3 of 3 - PCV20 or PCV21) 11/06/2017 11/06/2012, 05/19/2009 COVID-19 Vaccine (2024-2 6 season) 2025 05/24/2022, 07/07/2021, 10/31/2020, Additional history exists Influenza Vaccine (#1) 2025 , 04/16/2015, 06/10/2013 Insurance MEDICARE [employer] [place] MEDICARE SUPPLEMENT Care Teams Electrogalvanizing Machine Operator Relationship Specialty Start Date End Date Isai Marin MD [address] [place] [address] [address] [place] [address] PCP - General Family Medicine 08/16/22
--- OUTSIDE RECORDS SUMMARY | 2025-06-10 09:59 | XMS_ITS | Clinical Summary ---
Author Organization [facility] [address] Address [address] [place] [address] Care Team Providers Care Associate Account Director Name Role Phone Luz Tobias NP Primary Care Provider [phone] Allergies Active Allergy Reactions Criticality Noted Date [...] on file Legal Sex Female 1:03 AM DEVELOPMENT SPEC Gender Identity Not on file Sexual Orientation [...] 12:01 PM CDT Height 157.5 cm (5' 2) 01/17/2023 12:01 PM CDT Body Mass Index [...] 01/18/2024 01/17/2023, 11/08, 09/29/2020 Influenza Vaccine (#1) 2025 , 06/02/2021, 06/01/2020, Additional history exists Zoster [...] Relevant to Health Maintenance Insurance MEDICARE [employer] Care Teams Associate Account Director Relationship Specialty Start Date End Date Luz Tobias NP PCP - General Nurse Practitioner 08/17/20
[2025-06-10 10:23] LABS: Albumin Level 4.1 g/dL (3.5-5.1); Anion Gap 7 mmol/L (4-12); Blood Urea Nitrogen 17 mg/dL (7-17); Calcium 10.1 mg/dL (8.4-10.2); Carbon Dioxide 26 mmol/L (22-30); Chloride 105 mmol/L (98-107); Estimated Glomerular Filt Rate 51; Glucose 98 mg/dL (65-110); Potassium 4.0 mmol/L (3.4-5.0); Sodium 138 mmol/L (137-145)
[2025-06-10 10:26] LABS: Total Protein Urine Random 11 mg/dL; Ur Ttl Prot Creatinine Ratio 0.11 mg/mg (0-0.20)
[2025-06-10 10:34] LABS: Parathyroid Intact 113.3 pg/mL (14.5-75.2)
[2025-06-11 11:08] LABS: Calcium, Urine 6.3 mg/dL (Not Estab.)
== END 2025-06-10 09:23 | disposition home or self-care (01) ==
LOC: ANHLAB 09:27
PROVIDERS: PCP Nurse Practitioner Family; Visit Provider Internal Medicine Nephrology
DX: I12.9 Hypertensive chronic kidney disease with stage 1 through stage 4 chronic kidney disease, or unspecified chronic kidney disease (principal); N18.31 Chronic kidney disease, stage 3a; E83.52 Hypercalcemia
CPT/HCPCS: 36415; 80069; 82306; 82340; 82570; 83970; 84156; 85027

== ENCOUNTER 2025-07-30 08:42 | Outpatient (CLI) | payer MEDICARE, SELFPAY ==
[2025-07-30 10:01] LABS: Hemoglobin A1C 5.7 % (<5.7)
[2025-07-30 10:01] LABS: Add Urine Microscopic? YES; Appearance Urine Cloudy (Clear); Glucose Urine UA 3+ mg/dL (Negative); Leukocyte Esterase Ur Negative LEU/UL (Negative); Need Manual Microscopic Reviewed; Nitrate Urine Negative (Negative); Specific Grav Ur 1.028 (1.001-1.035)
[2025-07-30 10:04] LABS: Alanine Aminotransferase 13 U/L (6-35); Albumin Level 4.0 g/dL (3.5-5.1); Alkaline Phosphatase 136 U/L (38-126); Anion Gap 7 mmol/L (4-12); Aspartate Amino Transferase 23 U/L (14-36); Bilirubin,Total 0.6 mg/dL (0.2-1.3); Blood Urea Nitrogen 20 mg/dL (7-17); Calcium 9.9 mg/dL (8.4-10.2); Carbon Dioxide 24 mmol/L (22-30); Chloride 108 mmol/L (98-107); Estimated Glomerular Filt Rate 48; Glucose 89 mg/dL (65-110); Potassium 4.0 mmol/L (3.4-5.0); Sodium 139 mmol/L (137-145); Total Protein 7.1 g/dL (6.3-8.2)
[2025-07-30 10:20] LABS: Free T4 Free Thyroxine 0.98 ng/dL (0.78-2.19)
[2025-07-30 10:42] LABS: Thyroid Stimulating Hormone 1.380 uIU/mL (0.465-4.680)
[2025-07-30 10:59] LABS: Vitamin B12 984.0 pg/mL (239-931)
== END 2025-07-30 08:43 | disposition home or self-care (01) ==
PROVIDERS: PCP Nurse Practitioner Family; Visit Provider Nurse Practitioner Family
DX: E53.8 Deficiency of other specified B group vitamins (principal); E04.2 Nontoxic multinodular goiter; E11.9 Type 2 diabetes mellitus without complications; Z13.29 Encounter for screening for other suspected endocrine disorder
CPT/HCPCS: 36415; 80053; 81001; 82607; 83036; 84439; 84443

== ENCOUNTER 2025-08-18 11:23 | Outpatient (CLI) | payer MEDICARE, SELFPAY ==
[2025-08-18 12:09] LABS: Cholesterol 159 mg/dL (0-200); HDL Direct 56 mg/dL; Triglycerides 98 mg/dL (<150); Uric Acid 3.8 mg/dL (2.5-7.5)
[2025-08-19 07:09] LABS: C-Reactive Protein, Cardiac 2.12 mg/L (0.00-3.00)
[2025-08-19 18:08] LABS: ANA by IFA Rfx Titer/Pattern Positive (.)
== END 2025-08-18 11:24 | disposition home or self-care (01) ==
PROVIDERS: PCP Nurse Practitioner Family; Visit Provider Nurse Practitioner Family
DX: Z13.6 Encounter for screening for cardiovascular disorders (principal); M25.50 Pain in unspecified joint
CPT/HCPCS: 36415; 80061; 84550; 86038; 86141; 86430